=== PATIENT | female | born 1950 | race Caucasian/White ===

== ENCOUNTER 2021-07-23 12:33 | Inpatient (IN) ==
[2021-07-23] MEDS ORDERED: 0.9 % SODIUM CHLORIDE 1,000 ML IV ONE (12:41)
--- NOTE | 2021-07-23 12:59 | Emergency Department Note ---
HPI General Chief complaint: Syncope Stated complaint: cOVID, sHORTNESS OF BREATH, Time Seen by Provider: 07/23/21 12:35 Source: family Mode of arrival: ambulatory Limitations: language barrier, altered mental status and physical limitation History of Present Illness HPI Narrative: Narrative: Patient presents emergency department for evaluation of generalized weakness. She tested positive for Covid yesterday. She has 2-week history of increased generalized weakness. She was referred to the emergency department for possible monoclonal antibodies today. On arrival to the ER she was poorly responsive and back of family's vehicle. Family report that she was responsive in route to the emergency department she had mental status change on arrival. She is awake on arrival to the exam room. Related Data Home Medications Medication Instructions Recorded Confirmed multivitamin 1 tab PO QDAY 08/09/17 07/23/21 vitamin E (dl, acetate) 450 mg 1,000 unit PO QDAY 08/09/17 07/23/21 (1,000 unit) capsule aspirin 81 mg tablet,delayed 81 mg PO QDAY 10/05/20 07/23/21 release evening primrose oil 500 mg capsule 1,000 mg PO QDAY cap 10/05/20 07/23/21 magnesium 250 mg tablet 500 mg PO QDAY tab 07/19/21 07/23/21 omega 6-wpe-dlf-fish oil 900 1 cap PO BID cap 07/19/21 07/23/21 mg-1,400 mg capsule,delayed release Previous Rx's Medication Instructions Recorded fluticasone propionate 50 1 spray INTRANASAL QDAY #15.8 ml 10/04/20 mcg/actuation nasal spray,suspension syringe with needle 3 mL 25 gauge See Rx Instructions .ROUTE 01/27/21 x 1" .COMPLEX #100 ea estradiol cypionate 5 mg/mL 5 mg IM Q4W #5 ml 01/31/21 intramuscular oil clopidogrel 75 mg tablet 75 mg PO QDAY #90 tab 05/03/21 cholecalciferol (vitamin D3) 50 50 mcg PO QDAY #90 cap 05/04/21 mcg (2,000 unit) capsule mecobalamin (vitamin B12) 1,000 1,000 mcg PO QDAY #90 tab 05/04/21 mcg chewable tablet fenofibrate 54 mg tablet 54 mg PO QDAY #90 tab 07/21/21 losartan 50 mg tablet 50 mg PO QDAY #90 tab 07/21/21 Allergies Allergy/AdvReac Type Severity Reaction Status Date / Time hydromorphone [From Dilaudid] Allergy Severe Fever, Verified 07/19/21 08:11 seizure like activity Glngelu-Ntv-Ygd Reductase Allergy Severe Diarrhea, Verified 07/19/21 08:11 Inhibitor Vision changes MERT Inhibitors Allergy Unknown Diarrhea Verified 07/19/21 08:11 amlodipine Allergy Unknown Diarrhea Verified 07/19/21 08:11 Amoxicillin [From Augmentin] Allergy Unknown Diarrhea, Verified 07/19/21 08:11 severe pain clavulanic acid Allergy Unknown Diarrhea, Verified 07/19/21 08:11 [From Augmentin] severe pain red dye Allergy Unknown Hives Verified 07/19/21 08:11 simvastatin Allergy Unknown Diarrhea Verified 07/19/21 08:11 gabapentin AdvReac Severe Dizziness, Verified 07/19/21 08:11 lightheaded Nortriptyline AdvReac Severe Hair loss Verified 07/19/21 08:11 rosuvastatin AdvReac Unknown muscle Verified 07/19/21 08:11 cramps, weakness Review of Systems ROS ROS Narrative: Narrative: As above, all other system reviewed and negative. [facility] Narrative Patient History Narrative: Narrative: Reviewed Medical/Surgical/Family History All Active Problems (Updated 07/23/21 @ 15:53 by Arnaldo Ghotra MD) Pneumonia due to COVID-19 virus (Acute) Subthalamic lacunar stroke (Acute) Burn (Acute) Dizziness (Acute) Medicare annual wellness visit, initial (Acute) Insomnia (Acute) TIA (transient ischemic attack) (Acute) Choreoathetoid limb movements (Acute) NSTEMI (non-ST elevated myocardial infarction) (Acute) CAD (coronary artery disease) (Acute) Peripheral neuropathy (Chronic) Encounter for Medicare annual wellness exam (Chronic) Tobacco abuse (Chronic) Breast cyst (Chronic ~1994) Bilateral carotid bruits (Chronic) Atherosclerosis (Chronic) Allergic rhinitis (Chronic) HPV (human papilloma virus) infection (Chronic ~2004) Hyperlipidemia (Chronic ~2009) Hypertension, essential (Chronic ~1995) Anxiety (Chronic ~1985) Medical History Allergic rhinitis Anxiety (~1985) Atherosclerosis both carotid arteries Bilateral carotid bruits Breast cyst (~1994) Burn Encounter for Medicare annual wellness exam HPV (human papilloma virus) infection (~2004) Hyperlipidemia (~2009) Hypertension, essential (~1995) Medicare annual wellness visit, initial Tobacco abuse Surgical History H/O colonoscopy 06/06 Dr. Sharma H/O: hysterectomy 1985 History of cataract surgery 2014 History of surgery 2004 Cervical lesion Hx of tonsillectomy 1960 Family History Father Arthritis Bile duct cancer Mother Dementia Hypertension, essential Migraine Grandmother Seizures Paternal Social History Smoking Status: Current every day smoker Alcohol Intake Frequency: a few times a month Substance Use: does not use Exam Narrative Narrative: Narrative: Blood pressure 97/52, heart rate 81, respirations 25, satting mid 80s % on arrival to the emergency department in room air. General Limitations: language barrier, altered mental status and physical limitation Head Head: Present atraumatic and normocephalic Eye Eye: Present normal appearance, PERRL and EOMI ENT ENT: Present normal exam and normal oropharynx Neck Neck: Present normal inspection Respiratory Respiratory: Absent respiratory distress Extremities Extremities: Present normal inspection Neurological Neurological: Present alert and CN II-XII intact; Absent motor sensory deficit Psychiatric Psychiatric: Present normal affect and normal mood Skin Skin: Present warm (WNL) and dry Course Vital Signs Vital signs: Vital Signs Temperature 97.1 F 07/23/21 12:34 Pulse Rate 80 07/23/21 12:34 Respiratory Rate 21 07/23/21 12:34 Blood Pressure 97/52 07/23/21 12:34 Pulse Oximetry (%) 86 L 07/23/21 12:34 Temperature 97.1 F 07/23/21 12:34 Pulse Rate 82 07/23/21 15:41 Respiratory Rate 16 07/23/21 14:31 Blood Pressure 124/93 07/23/21 15:41 Pulse Oximetry (%) 94 07/23/21 15:41 MDM MDM Narrative Medical decision making narrative: Narrative: EKG shows sinus rhythm, no acute ischemic changes, intervals otherwise normal. Chest x-ray is consistent with Covid pneumonia. Patient is hydrated IV fluids. I spoke with the on-call hospitalist. Case reviewed in detail over the phone. Hospitalist agreed with admission. Discussed findings with patient and the family. Their questions were answered. They are agreeable with the plan. Lab Data Result diagrams: 07/23/21 12:35 07/23/21 12:35 Labs: Lab Results 07/23/21 07/23/21 07/23/21 Range/Units 12:35 12:35 12:35 WBC 4.4 L (4.5-11.0) K/mcL RBC 4.88 (3.59-5.38) M/mcL Hgb 15.1 (11.2-15.7) g/dL Hct 44.5 (34.1-44.9) % MCV 91.2 (80.0-100.0) fL MCH 30.9 (26.0-34.0) pg MCHC 33.9 (31.0-36.0) g/dL RDW 13.2 (11.5-14.5) % Plt Count 132 L (140-440) K/mcL MPV 12.8 H (7.4-10.4) fL Neut % (Auto) 75.2 (38.0-78.0) % Lymph % (Auto) 20.5 (15.5-49.0) % [place] % (Auto) 4.1 (1.0-12.0) % Eos % (Auto) 0 (0.0-7.0) % Baso % (Auto) 0.2 (0.0-2.0) % Lymph # (Auto) 0.89 L (1.50-4.80) K/mcL [place] # (Auto) 0.18 (0.10-0.90) K/mcL Eos # (Auto) 0 (0.00-0.70) K/mcL Baso # (Auto) 0.01 (0.00-0.30) K/mcL Absolute Neutrophils 3.27 (1.80-8.00) K/mcL Sodium 133 (133-145) mmol/L Potassium 3.7 (3.3-5.1) mmol/L Chloride 96 (96-108) mmol/L Carbon Dioxide 22 (22-30) mmol/L Anion Gap 15.0 (8.0-16.0) BUN 24 H (8-23) mg/dL Creatinine 1.3 H (0.6-1.1) mg/dL GFR Calculation 41 Glucose 146 H (70-105) mg/dL Calcium 10.1 (8.6-10.4) mg/dL Ferritin 960.4 H (30.0-400.0) ng/mL Total Bilirubin 0.3 (0.1-1.0) mg/dL AST 53 H (<32) U/L ALT 22 (<40) U/L Alkaline Phosphatase 47 (39-117) U/L C-Reactive Protein 14.30 H (0.03-0.80) mg/dL Total Protein 7.0 (5.9-8.4) gm/dL Albumin 3.6 (3.2-5.2) gm/dL Globulin 3.4 (2.2-3.7) gm/dL Albumin/Globulin Ratio 1.1 (1.0-2.3) Procalcitonin (<0.10) ng/mL 07/23/21 Range/Units 12:35 WBC (4.5-11.0) K/mcL RBC (3.59-5.38) M/mcL Hgb (11.2-15.7) g/dL Hct (34.1-44.9) % MCV (80.0-100.0) fL MCH (26.0-34.0) pg MCHC (31.0-36.0) g/dL RDW (11.5-14.5) % Plt Count (140-440) K/mcL MPV (7.4-10.4) fL Neut % (Auto) (38.0-78.0) % Lymph % (Auto) (15.5-49.0) % [place] % (Auto) (1.0-12.0) % Eos % (Auto) (0.0-7.0) % Baso % (Auto) (0.0-2.0) % Lymph # (Auto) (1.50-4.80) K/mcL [place] # (Auto) (0.10-0.90) K/mcL Eos # (Auto) (0.00-0.70) K/mcL Baso # (Auto) (0.00-0.30) K/mcL Absolute Neutrophils (1.80-8.00) K/mcL Sodium (133-145) mmol/L Potassium (3.3-5.1) mmol/L Chloride (96-108) mmol/L Carbon Dioxide (22-30) mmol/L Anion Gap (8.0-16.0) BUN (8-23) mg/dL Creatinine (0.6-1.1) mg/dL GFR Calculation Glucose (70-105) mg/dL Calcium (8.6-10.4) mg/dL Ferritin (30.0-400.0) ng/mL Total Bilirubin (0.1-1.0) mg/dL AST (<32) U/L ALT (<40) U/L Alkaline Phosphatase (39-117) U/L C-Reactive Protein (0.03-0.80) mg/dL Total Protein (5.9-8.4) gm/dL Albumin (3.2-5.2) gm/dL Globulin (2.2-3.7) gm/dL Albumin/Globulin Ratio (1.0-2.3) Procalcitonin 0.37 H (<0.10) ng/mL Discharge Plan Patient/Caregiver Discharge Instructions Pt seen by ADVERTISING OPERATIONS COORDINATOR/PA only: No Clinical Impression: Pneumonia due to COVID-19 virus Patient Disposition: Xfer As Inpt ([facility]) Follow up with: Armando Odonnell DO [Primary Care Provider] - Prescriptions: No Action evening primrose oil 500 mg capsule 1,000 mg PO QDAY RF: 0 aspirin 81 mg tablet,delayed release (DR/EC) 81 mg PO QDAY RF: 0 syringe with needle [BD Luer-Jose Syringe] 3 mL 25 gauge x 1" syringe See Rx Instructions .ROUTE .COMPLEX Qty: 100 RF: 0 Depo-Estradiol 5 mg/mL oil 5 mg IM Q4W Qty: 5 RF: 3 clopidogrel [Plavix] 75 mg tablet 75 mg PO QDAY Qty: 90 RF: 1 losartan 50 mg tablet 50 mg PO QDAY Qty: 90 RF: 1 fenofibrate 54 mg tablet 54 mg PO QDAY Qty: 90 RF: 1 fluticasone propionate [Flonase Allergy Relief] 50 mcg/actuation spray,suspension 1 spray INTRANASAL QDAY Qty: 15.8 RF: 0 vitamin E (dl, acetate) 1,000 unit capsule 1,000 unit PO QDAY RF: 0 multivitamin tablet 1 tab PO QDAY RF: 0 cholecalciferol (vitamin D3) 50 mcg (2,000 unit) capsule 50 mcg PO QDAY Qty: 90 RF: 3 mecobalamin (vitamin B12) 1,000 mcg tablet,chewable 1,000 mcg PO QDAY Qty: 90 RF: 3 magnesium 250 mg tablet 500 mg PO QDAY RF: 0 Fish Oil 900-1,400 mg capsule,delayed release(DR/EC) 1 cap PO BID RF: 0
--- NOTE | 2021-07-23 13:18 | XRay Report ---
INDICATION: weakness, +covid TECHNIQUE: AP portable upright chest x-ray COMPARISON: None FINDINGS: Lungs:Pulmonary parenchymal infiltrates. These are predominantly right sided. Appearance is consistent with covid pneumonia in this patient with history of positive covid test. Heart, vascular:No significant cardiomegaly. Pulmonary vascularity is normal. No pulmonary edema or pulmonary congestion Mediastinum, steffanie:No mediastinal widening. No hilar mass Pleura:No pleural fluid. No pleural-based mass or calcification Skeletal:Right convex thoracic scoliosis IMPRESSION: 1. Pulmonary parenchymal infiltrates, right greater than left 2. Findings consistent with covid pneumonia Interpreted and Authenticated by: Armando Mcintyre 07/23/21
[2021-07-23 13:34] LABS: Basophils # (Auto) 0.01 K/mcL (0.00-0.30); Basophils % (Auto) 0.2 % (0.0-2.0); Eosinophils # (Auto) 0 K/mcL (0.00-0.70); Eosinophils % (Auto) 0 % (0.0-7.0); Hematocrit 44.5 % (34.1-44.9); Hemoglobin 15.1 g/dL (11.2-15.7); Lymphocytes # (Auto) 0.89 K/mcL (1.50-4.80); Lymphocytes % (Auto) 20.5 % (15.5-49.0); Mean Cell Volume 91.2 fL (80.0-100.0); Mean Corpuscular HGB Conc 33.9 g/dL (31.0-36.0); Mean Platelet Volume 12.8 fL (7.4-10.4); Monocytes # (Auto) 0.18 K/mcL (0.10-0.90); Monocytes % (Auto) 4.1 % (1.0-12.0); Neutrophils % (Auto) 75.2 % (38.0-78.0); Platelet Count 132 K/mcL (140-440); RBC 4.88 M/mcL (3.59-5.38); Red Cell Distribution Width 13.2 % (11.5-14.5); WBC 4.4 K/mcL (4.5-11.0)
[2021-07-23] MEDS ORDERED: DEXAMETHASONE 10 MG/ML VIAL IV ONE (13:44)
[2021-07-23 14:03] LABS: ALT/SGPT 22 U/L (<40); AST/SGOT 53 U/L (<32); Albumin 3.6 gm/dL (3.2-5.2); Albumin/Globulin Ratio 1.1 (1.0-2.3); Alkaline Phosphatase 47 U/L (39-117); Bilirubin,Total 0.3 mg/dL (0.1-1.0); Blood Urea Nitrogen 24 mg/dL (8-23); Calcium 10.1 mg/dL (8.6-10.4); Carbon Dioxide 22 mmol/L (22-30); Chloride 96 mmol/L (96-108); Globulin 3.4 gm/dL (2.2-3.7); Glomerular Filtration Rate 41; Glucose 146 mg/dL (70-105)
[2021-07-23 14:20] LABS: C-Reactive Protein 14.3 mg/dL (0.03-0.80)
[2021-07-23 14:30] LABS: Ferritin 960.4 ng/mL (30.0-400.0)
--- NOTE | 2021-07-23 14:31 | Internal Med History&Physical ---
HPI History of Present Illness Patient information: Note initiated : 07/23/21 at 2:19 pm Service Date, if different from initiated Date: [] Patient: Loni Dasilva a 71 y/o F admitted on for cOVID, sHORTNESS OF BREATH,. Chief Complaint: [] History of present illness: Ms. Dasilva is a 71 year old F Who presents the ED requesting monoclonal antibodies for recent positive Covid test but found to be hypoxic. Patient states over the past 1 to 2 weeks she has had increased weakness and fatigue. She has had fevers chills and some diarrhea. She also has a cough that is occasionally productive. She does not feel short of breath although her son says she looks like she is short of breath at times. He was at her stratigrapher office this last week Dr. Villasenor and had a Covid test which they found out the other day was positive. At that time they called her PCP who recommended going to the ER and getting monoclonal antibody soon as they were able. When she arrived to the ED she almost had a syncopal episode it sounds like in the car. Her sats were in the mid 80s. Patient is accompanied by her son. She did not get the vaccine because she has had a bad response to the polio vaccine as well as the flu vaccine Review of Systems: Pertinent positives as above. Denies headache/nausea/vomiting/chest or abdominal pain/. Remaining 10 point review of system reviewed negative PFSH PFSH All Active Problems Subthalamic lacunar stroke (Acute) Burn (Acute) Dizziness (Acute) Medicare annual wellness visit, initial (Acute) Insomnia (Acute) TIA (transient ischemic attack) (Acute) Choreoathetoid limb movements (Acute) NSTEMI (non-ST elevated myocardial infarction) (Acute) CAD (coronary artery disease) (Acute) Peripheral neuropathy (Chronic) Encounter for Medicare annual wellness exam (Chronic) Tobacco abuse (Chronic) Breast cyst (Chronic ~1994) Bilateral carotid bruits (Chronic) Atherosclerosis (Chronic) Allergic rhinitis (Chronic) HPV (human papilloma virus) infection (Chronic ~2004) Hyperlipidemia (Chronic ~2009) Hypertension, essential (Chronic ~1995) Anxiety (Chronic ~1985) Medical History Allergic rhinitis Anxiety (~1985) Atherosclerosis both carotid arteries Bilateral carotid bruits Breast cyst (~1994) Burn Encounter for Medicare annual wellness exam HPV (human papilloma virus) infection (~2004) Hyperlipidemia (~2009) Hypertension, essential (~1995) Medicare annual wellness visit, initial Tobacco abuse Surgical History H/O colonoscopy 06/06 Dr. Sharma H/O: hysterectomy 1984 History of cataract surgery 2014 History of surgery 2004 Cervical lesion Hx of tonsillectomy 1960 Family History Father Arthritis Bile duct cancer Mother Dementia Hypertension, essential Migraine Grandmother Seizures Paternal Social History marital status: other: Children-2 alcohol intake frequency: a few times a month substance use type: does not use MEDS/ALLERGIES Home Medications and Allergies Home Medications Medication Instructions Recorded Confirmed Type multivitamin 1 tab PO QDAY 08/09/17 07/23/21 History vitamin E (dl, acetate) 450 mg 1,000 unit PO QDAY 08/09/17 07/23/21 History (1,000 unit) capsule fluticasone propionate 50 1 spray INTRANASAL QDAY #15.8 ml 10/04/20 07/23/21 Rx mcg/actuation nasal spray,suspension aspirin 81 mg tablet,delayed 81 mg PO QDAY 10/05/20 07/23/21 History release evening primrose oil 500 mg capsule 1,000 mg PO QDAY cap 10/05/20 07/23/21 History syringe with needle 3 mL 25 gauge See Rx Instructions .ROUTE 01/27/21 07/23/21 Rx x 1" .COMPLEX #100 ea estradiol cypionate 5 mg/mL 5 mg IM Q4W #5 ml 01/31/21 07/23/21 Rx intramuscular oil clopidogrel 75 mg tablet 75 mg PO QDAY #90 tab 05/03/21 07/23/21 Rx cholecalciferol (vitamin D3) 50 50 mcg PO QDAY #90 cap 05/04/21 07/23/21 Rx mcg (2,000 unit) capsule mecobalamin (vitamin B12) 1,000 1,000 mcg PO QDAY #90 tab 05/04/21 07/23/21 Rx mcg chewable tablet magnesium 250 mg tablet 500 mg PO QDAY tab 07/19/21 07/23/21 History omega 0-kng-rft-fish oil 900 1 cap PO BID cap 07/19/21 07/23/21 History mg-1,400 mg capsule,delayed release fenofibrate 54 mg tablet 54 mg PO QDAY #90 tab 07/21/21 07/23/21 Rx losartan 50 mg tablet 50 mg PO QDAY #90 tab 07/21/21 07/23/21 Rx Allergies Allergy/AdvReac Type Severity Reaction Status Date / Time hydromorphone [From Dilaudid] Allergy Severe Fever, Verified 07/19/21 08:11 seizure like activity Ybodmre-Ydo-Lru Reductase Allergy Severe Diarrhea, Verified 07/19/21 08:11 Inhibitor Vision changes MERT Inhibitors Allergy Unknown Diarrhea Verified 07/19/21 08:11 amlodipine Allergy Unknown Diarrhea Verified 07/19/21 08:11 Amoxicillin [From Augmentin] Allergy Unknown Diarrhea, Verified 07/19/21 08:11 severe pain clavulanic acid Allergy Unknown Diarrhea, Verified 07/19/21 08:11 [From Augmentin] severe pain red dye Allergy Unknown Hives Verified 07/19/21 08:11 simvastatin Allergy Unknown Diarrhea Verified 07/19/21 08:11 gabapentin AdvReac Severe Dizziness, Verified 07/19/21 08:11 lightheaded Nortriptyline AdvReac Severe Hair loss Verified 07/19/21 08:11 rosuvastatin AdvReac Unknown muscle Verified 07/19/21 08:11 cramps, weakness EXAM Constitutional Vitals: Temp Pulse Resp BP Pulse Ox 97.1 F 80 23 H 124/47 94 07/23/21 12:34 07/23/21 14:16 07/23/21 14:01 07/23/21 14:16 07/23/21 14:16 Exam: General: Awake, No acute Distress, peers generally weak Eyes/N/T: EOMI, PERRL, Head/Neck: neck supple, normocephalic atraumatic CV: RRR, No murmurs, normal s1/s2 Pulm: Diminished b/l, no wheezing Abd: soft, nontender, +BS x4 Ext: no clubbing/cyanosis/edema Neuro: no focal deficits, moves all extremities, CN 2-12 grossly intact, symmetrical strength b/l upper/lower, sensations intact b/l upper/lower Skin: warm/dry DATA Data Completed and Pending Labs: Labs from last 24 hours 07/23/21 07/23/21 07/23/21 12:35 12:35 12:35 WBC 4.4 L RBC 4.88 Hgb 15.1 Hct 44.5 MCV 91.2 MCH 30.9 MCHC 33.9 RDW 13.2 Plt Count 132 L MPV 12.8 H Neut % (Auto) 75.2 Lymph % (Auto) 20.5 [place] % (Auto) 4.1 Eos % (Auto) 0 Baso % (Auto) 0.2 Lymph # (Auto) 0.89 L Gray # (Auto) 0.18 Eos # (Auto) 0 Baso # (Auto) 0.01 Absolute Neutrophils 3.27 Sodium 133 Potassium 3.7 Chloride 96 Carbon Dioxide 22 Anion Gap 15.0 BUN 24 H Creatinine 1.3 H GFR Calculation 41 Glucose 146 H Calcium 10.1 Ferritin Pending Total Bilirubin 0.3 AST 53 H ALT 22 Alkaline Phosphatase 47 C-Reactive Protein Pending Total Protein 7.0 Albumin 3.6 Globulin 3.4 Albumin/Globulin Ratio 1.1 A/P Narrative A/P Narrative: A: *Covid PNA w/ : *Acute hypoxic respiratory failure: *h/o CVA's: on plavix/asa per Ho for intracerebral stenosis *h/o CAD w/stent: follows with Dr. Villasenor -on asa/plavix/fenofibrate *HTN: on ARB * P: -Rem/Dex -O2 support and wean as able -prone/mobilization/oob to chair -IS/Acapella/prn nebs -cont ARB -cont plavix -abg -pt/ot -ppx: lovenox code status: CPR ok, but no intubation Time Spent With Patient Time: Total time spent is greater than 50% in coordination of care (as documented) at patient's floor/unit and/or counseling patient:
[2021-07-23] MEDS ORDERED: REMDESIVIR 200 MG in 0.9 % SODIUM CHLORIDE 250 ML IV ONE (15:00)
[2021-07-23] MEDS ORDERED: ONDANSETRON 4 MG/2 ML VIAL IV PRN (16:30)
[2021-07-23] MEDS ORDERED: IPRATROPIUM/ALBUTEROL 3 ML AMPUL.NEB NEB PRN (16:30)
[2021-07-23] MEDS ORDERED: REMDESIVIR 100 MG in 0.9 % SODIUM CHLORIDE 250 ML IV SCH (16:30)
[2021-07-23] MEDS ORDERED: POLYETHYLENE GLYCOL 3350 17 GM PACKET PO PRN (16:30)
[2021-07-23] MEDS ORDERED: POTASSIUM CHLORIDE 40 MEQ in DEXTROSE 5% IN WATER 500 ML IV PRN (16:30)
[2021-07-23] MEDS ORDERED: 0.9 % SODIUM CHLORIDE 500 ML IV ONE (16:30)
[2021-07-23] MEDS ORDERED: MAGNESIUM SULFATE 2 GM/50 ML BAG IV PRN (16:30)
[2021-07-23] MEDS ORDERED: POTASSIUM CHLORIDE 20 MEQ TABLET PO PRN ×2 (16:30)
[2021-07-23] MEDS: 0.9 % SODIUM CHLORIDE 10 ML SYRINGE IV SCH (20:43)
[2021-07-24] MEDS: 0.9 % SODIUM CHLORIDE 10 ML SYRINGE IV SCH ×3 (05:20→21:01)
[2021-07-24 06:26] LABS: Basophils # (Auto) 0 K/mcL (0.00-0.30); Basophils % (Auto) 0 % (0.0-2.0); Eosinophils # (Auto) 0 K/mcL (0.00-0.70); Eosinophils % (Auto) 0 % (0.0-7.0); Hematocrit 40.6 % (34.1-44.9); Lymphocytes # (Auto) 0.53 K/mcL (1.50-4.80); Lymphocytes % (Auto) 27.7 % (15.5-49.0); Mean Platelet Volume 12.3 fL (7.4-10.4); Monocytes # (Auto) 0.11 K/mcL (0.10-0.90); Monocytes % (Auto) 5.8 % (1.0-12.0); Neutrophils % (Auto) 66.5 % (38.0-78.0); Platelet Count 115 K/mcL (140-440); RBC 4.32 M/mcL (3.59-5.38); Red Cell Distribution Width 13.1 % (11.5-14.5); WBC 1.9 K/mcL (4.5-11.0)
[2021-07-24 07:05] LABS: ALT/SGPT 21 U/L (<40); AST/SGOT 49 U/L (<32); Albumin/Globulin Ratio 1.1 (1.0-2.3); Alkaline Phosphatase 43 U/L (39-117); Bilirubin,Direct < 0.2 mg/dL (0-0.3); Bilirubin,Total 0.2 mg/dL (0.1-1.0); Blood Urea Nitrogen 19 mg/dL (8-23); Calcium 8.3 mg/dL (8.6-10.4); Carbon Dioxide 16 mmol/L (22-30); Chloride 102 mmol/L (96-108); Globulin 2.8 gm/dL (2.2-3.7); Glomerular Filtration Rate 91; Glucose 103 mg/dL (70-105); Lactate Dehydrogenase 393 U/L (135-225); Phosphorous 2.4 mg/dL (2.5-4.5); Triglycerides 103 mg/dL (<150)
--- NOTE | 2021-07-24 08:03 | Internal Med Progress Note ---
SUBJECTIVE Subjective Patient information: Note initiated : 07/24/21 at 7:56 am Service Date, if different from initiated Date: [] Patient: Loni Dasilva a 71 y/o F admitted on 07/23/21 for cOVID, sHORTNESS OF BREATH,. Chief Complaint: [] Interval history: History of present illness: Ms. Dasilva is a 71 year old F Who presents the ED requesting monoclonal antibodies for recent positive Covid test but found to be hypoxic. Patient states over the past 1 to 2 weeks she has had increased weakness and fatigue. She has had fevers chills and some di arrhea. She also has a cough that is occasionally productive. She does not feel short of breath although her son says she looks like she is short of breath at times. 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 Villasenor and had a Covid test which they found out the other day was positive. At that time they called her PCP who recommended going to the ER and getting monoclonal antibody soon as they were able. When she arrived to the ED she almost had a syncopal episode it sounds like in the car. Her sats were in the mid 80s. Patient is accompanied by her son. She did not get the vaccine because she has had a bad response to the polio vaccine as well as the flu vaccine 07/24 Patient doing well so far on 4 L nasal cannula. Has occasional cough. States her shortness of breath mildly improved. Review of Systems: denies headache/fever/chills/nausea/vomiting/chest or abdominal pain/diarrhea. Otherwise see above. Constitutional Vitals: Vital Signs Temp Pulse Resp BP Pulse Ox 98.9 F 80 23 H 143/57 95 07/24/21 04:00 07/24/21 05:58 07/24/21 06:04 07/24/21 06:04 07/24/21 06:04 Period Temp Pulse Resp BP Sys/Wright Pulse Ox Last 24 Hr 97.1 F-99.5 F 73-87 16-29 95-152/40-93 86-99 Intake and Output 07/23/21 07/24/21 07/24/21 21:59 05:59 13:59 Intake Total 1250 960 Output Total 650 Balance 1250 310 Weight 51.71 kg 55.61 kg Intake & Output: Intake & Output 07/23/21 07/24/21 07/24/21 21:59 05:59 13:59 Intake Total 1250 960 Output Total 650 Balance 1250 310 Weight 51.71 kg 55.61 kg Intake: IV 1250 500 Sodium Chloride 0.9% 500 ml @ 1000 500 75 mls/hr IV .[id number] ONE Rx#: [id number] Veklury 200 mg In Sodium 250 Chloride 0.9% 250 ml @ 500 mls/ hr IV ONCE ONE Rx#:[id number] Oral 460 Output: Void Amount 650 Other: Meal Nourishment/Supplement Percent of Meal Consumed 100% Feeding Ability Assist with Tray Set Up Urine Appearance Clear Urine Color Dark Yellow Stool Size Copious Smear Stool Color Brown Brown Stool Consistency Liquid Loose Watery Loose # Voids 1 # Bowel Movements 1 # of times incontinent of 1 Bowels Exam: General: Awake, No acute Distress, peers generally weak Eyes/N/T: EOMI, Head/Neck: neck supple, CV: RRR, No murmurs, Pulm: Diminished b/l with mild rhonchi, no wheezing Abd: soft, nontender, +BS x4 Ext: no clubbing/cyanosis/edema Neuro: no focal deficits, moves all extremities, Skin: warm/dry OBJ DATA Labs CBC & Chem 7: 07/24/21 05:14 07/24/21 05:14 Labs: Abnormal Lab Results 07/24/21 07/24/21 07/24/21 05:15 05:15 05:14 WBC Plt Count MPV Lymph # (Auto) Absolute Neutrophils Carbon Dioxide 16 L BUN Creatinine Glucose Calcium 8.3 L Phosphorus 2.4 L Ferritin AST 49 H Lactate Dehydrogenase 393 H C-Reactive Protein 11.70 H Total Protein 5.8 L Albumin 3.0 L Procalcitonin 0.44 H 07/24/21 07/23/21 07/23/21 05:14 12:35 12:35 WBC 1.9 L Plt Count 115 L MPV 12.3 H Lymph # (Auto) 0.53 L Absolute Neutrophils 1.27 L Carbon Dioxide BUN Creatinine Glucose Calcium Phosphorus Ferritin 960.4 H AST Lactate Dehydrogenase C-Reactive Protein 14.30 H Total Protein Albumin Procalcitonin 0.37 H 07/23/21 07/23/21 12:35 12:35 WBC 4.4 L Plt Count 132 L MPV 12.8 H Lymph # (Auto) 0.89 L Absolute Neutrophils Carbon Dioxide BUN 24 H Creatinine 1.3 H Glucose 146 H Calcium Phosphorus Ferritin AST 53 H Lactate Dehydrogenase C-Reactive Protein Total Protein Albumin Procalcitonin Meds: Medications Acetaminophen (Acetaminophen 325 Mg Tablet) 650 mg PO Q6HP PRN PRN Reason: PAIN/FEVER > 101 Albuterol/Ipratropium (Ipratropium/Albuterol 3 Ml Ampul.Neb) 3 ml NEB Q4HP PRN PRN Reason: Shortness Of Breath Aspirin (Aspirin 81 Mg Tab.Chew) 81 mg PO DAILY [facility] Clopidogrel Bisulfate (Clopidogrel 75 Mg Tablet) 75 mg PO QDAY [facility] Cyanocobalamin (Cyanocobalamin (Vitamin B-12) 500 Mcg Tablet) 1,000 mcg PO DAILY [facility] Dexamethasone (Dexamethasone 4 Mg Tablet) 6 mg PO DAILY [facility] Enoxaparin Sodium (Enoxaparin 40 Mg/0.4 Ml Syringe) 40 mg SQ DAILY [facility] Fenofibrate (Fenofibrate 43 Mg Capsule) 43 mg PO DAILY [facility] Potassium Chloride 40 meq/ (Dextrose) 520 mls @ 130 mls/hr IV UD PRN PRN Reason: Potassium < 3 Magnesium Sulfate (Magnesium Sulfate) 2 gm in 50 mls @ 50 mls/hr IV UD PRN PRN Reason: Magnesium </= 1.6 REMDESIVIR 100 mg/ Sodium (Chloride) 250 mls @ 500 mls/hr IV DAILY@1100 [facility] Stop: 07/27/21 11:29 Losartan Potassium (Losartan 50 Mg Tablet) 50 mg PO QDAY [facility] Ondansetron HCl (Ondansetron 4 Mg/2 Ml Vial) 4 mg IV Q4HP PRN PRN Reason: Nausea And Vomiting Pantoprazole Sodium (Pantoprazole 40 Mg Tablet) 40 mg PO QAMAC [facility] Polyethylene Glycol (Polyethylene Glycol 3350 17 Gm Packet) 17 gm PO DAILYP PRN PRN Reason: Constipation Potassium Chloride (Potassium Chloride 20 Meq Tablet) 40 meq PO UD PRN PRN Reason: Potssium is 3-3.5 Potassium Chloride (Potassium Chloride 20 Meq Tablet) 40 meq PO UD PRN PRN Reason: Potassium < 3 Sodium Chloride (0.9 % Sodium Chloride 10 Ml Syringe) 10 ml IV Q8 [facility] Last Admin: 07/24/21 05:20 Dose: 10 ml Documented by: A/P Narrative A/P Narrative: A: *Covid PNA w/ALI with possible bacterial coinfection: -PCT elevated, leukopenia *Acute hypoxic respiratory failure: -on 4L NC *h/o CVA's: on plavix/asa per [facility] for intracerebral stenosis *h/o CAD w/stent: follows with Dr. Villasenor -on asa/plavix/fenofibrate *EDGARDO on CKD II: improved with IVF *HTN: on ARB *Leukopenia: 2/2 viral illness P: -Rem/Dex -empiric abx -O2 support and wean as able -prone/mobilization/oob to chair -IS/Acapella/prn nebs -cont ARB -cont asa/plavix -pt/ot -ppx: lovenox code status: CPR ok, but no intubation Time Spent With Patient Time: Total time spent is greater than 50% in coordination of care (as documented) at patient's floor/unit and/or counseling patient: QUALITY VTE Deep Vein Thrombosis/Pulmonary Embolism Present on Admission: No
[2021-07-24] MEDS: cefTRIAXone 2 GM in DEXTROSE 5% IN WATER 50 ML IV SCH (08:57)
[2021-07-24] MEDS: PANTOPRAZOLE 40 MG TABLET PO SCH (08:58)
[2021-07-24] MEDS ORDERED: ENOXAPARIN 40 MG/0.4 ML SYRINGE SQ SCH (09:00)
[2021-07-24] MEDS ORDERED: DEXAMETHASONE 4 MG TABLET PO SCH (09:00)
[2021-07-24] MEDS ORDERED: CYANOCOBALAMIN (VITAMIN B-12) 500 MCG TABLET PO SCH (09:00)
[2021-07-24] MEDS ORDERED: LOSARTAN 50 MG TABLET PO SCH (09:00)
[2021-07-24] MEDS ORDERED: CLOPIDOGREL 75 MG TABLET PO SCH (09:00)
[2021-07-24] MEDS ORDERED: ASPIRIN 81 MG TAB.CHEW PO SCH (09:00)
[2021-07-24] MEDS ORDERED: FENOFIBRATE 43 MG CAPSULE PO SCH (09:00)
[2021-07-24] MEDS: AZITHROMYCIN 500 MG in DEXTROSE 5% IN WATER 250 ML IV SCH (09:14)
[2021-07-24 09:46] LABS: Band Neutrophils % 2 % (0-10); Lymphocytes % 26 % (15-49); Monocytes % (Manual) 2 % (1-12); Platelet Estimate DECREASED (Normal); RBC Morphology NORMAL (Normal); Segmented Neutrophils % 70 % (38-78)
[2021-07-24] MEDS ORDERED: CETIRIZINE 10 MG TABLET PO SCH (11:00)
[2021-07-24] MEDS: REMDESIVIR 100 MG in 0.9 % SODIUM CHLORIDE 250 ML IV SCH (11:07)
--- NOTE | 2021-07-24 13:02 | EKG ---
[facility] Test Date: 2021-07-23 Pat Name: Loni Dasilva Department: ED Room: Gender: Female Ic Designer Custom: cs : 1950 Requested By: Arnaldo Ghotra Order Number: [id number] Reading MD: Rusty Olguin Measurements Intervals [place] Rate: 81 P: 41 VA: 160 QRS: 9 QRSD: 95 T: 29 QT: 390 QTc: 453 Interpretive Statements Sinus rhythm Left atrial enlargement Electronically Signed On 07-24-2021 13:01:58 PDT by Rusty Olguin /store/[email or web address]/[id number]
[2021-07-24] MEDS: ACETAMINOPHEN 325 MG TABLET PO PRN (18:34)
[2021-07-25] MEDS ORDERED: IPRATROPIUM/ALBUTEROL 3 ML AMPUL.NEB NEB ONE (02:30)
[2021-07-25] MEDS: ACETAMINOPHEN 325 MG TABLET PO PRN ×2 (04:14→10:20)
[2021-07-25] MEDS: 0.9 % SODIUM CHLORIDE 10 ML SYRINGE IV SCH ×3 (04:15→20:35)
[2021-07-25] MEDS ORDERED: ACETAMINOPHEN 325 MG TABLET PO ONE (04:18)
--- NOTE | 2021-07-25 07:36 | Internal Med Progress Note ---
SUBJECTIVE Subjective Patient information: Note initiated : 07/25/21 at 7:35 am Service Date, if different from initiated Date: [] Patient: Loni Dasilva a 71 y/o F admitted on 07/23/21 for cOVID, sHORTNESS OF BREATH,. Chief Complaint: [] Interval history: History of present illness: Ms. Dasilva is a 71 year old F Who presents the ED requesting monoclonal antibodies for recent positive Covid test but found to be hypoxic. Patient states over the past 1 to 2 weeks she has had increased weakness and fatigue. She has had fevers chills and some di arrhea. She also has a cough that is occasionally productive. She does not feel short of breath although her son says she looks like she is short of breath at times. He was at her pharmacy consultant office this last week Dr. Villasenor and had a Covid test which they found out the other day was positive. At that time they called her PCP who recommended going to the ER and getting monoclonal antibody soon as they were able. When she arrived to the ED she almost had a syncopal episode it sounds like in the car. Her sats were in the mid 80s. Patient is accompanied by her son. She did not get the vaccine because she has had a bad response to the polio vaccine as well as the flu vaccine 07/24 Patient doing well so far on 4 L nasal cannula. Has occasional cough. States her shortness of breath mildly improved. 07/25 Patient up to 10 L oxygen mask this morning. Will place patient on heated high flow. Patient complains of cough and shortness of breath. Shortness of breath worsens when she has coughing fits. Review of Systems: denies headache/fever/chills/nausea/vomiting/chest or abdominal pain/diarrhea. Otherwise see above. Constitutional Vitals: Vital Signs Temp Pulse Resp BP Pulse Ox 99.9 F H 80 26 H 136/76 90 07/25/21 04:00 07/24/21 05:58 07/25/21 06:01 07/25/21 06:01 07/25/21 06:01 Period Temp Pulse Resp BP Sys/Wright Pulse Ox Last 24 Hr 98.2 F-99.9 F 17-28 126-162/47-83 84-96 Intake and Output 07/24/21 07/25/21 07/25/21 21:59 05:59 13:59 Intake Total 400 120 Output Total 600 525 Balance -200 -405 Weight 55.4 kg Intake & Output: Intake & Output 07/24/21 07/25/21 07/25/21 21:59 05:59 13:59 Intake Total 400 120 Output Total 600 525 Balance -200 -405 Weight 55.4 kg Intake: Oral 400 120 Output: Void Amount 600 525 Other: Urine Appearance Clear Clear Urine Color Bright Yellow Bright Yellow Urine Odor Normal Normal Exam: General: Awake, No acute Distress, peers generally weak Eyes/N/T: EOMI, Head/Neck: neck supple, CV: RRR, No murmurs, Pulm: Diminished b/l with mild rhonchi, no wheezing Abd: soft, nontender, +BS x4 Ext: no clubbing/cyanosis/edema Neuro: no focal deficits, moves all extremities, Skin: warm/dry OBJ DATA Labs CBC & Chem 7: 07/24/21 05:14 07/25/21 06:56 Labs: Abnormal Lab Results 07/24/21 07/24/21 07/24/21 05:15 05:15 05:14 WBC Plt Count MPV Lymph # (Auto) Absolute Neutrophils Platelet Estimate Carbon Dioxide 16 L BUN Creatinine Glucose Calcium 8.3 L Phosphorus 2.4 L Ferritin AST 49 H Lactate Dehydrogenase 393 H C-Reactive Protein 11.70 H Total Protein 5.8 L Albumin 3.0 L Procalcitonin 0.44 H 07/24/21 07/24/21 07/23/21 05:14 05:00 12:35 WBC 1.9 L Plt Count 115 L MPV 12.3 H Lymph # (Auto) 0.53 L Absolute Neutrophils 1.27 L Platelet Estimate Decreased A Carbon Dioxide BUN Creatinine Glucose Calcium Phosphorus Ferritin AST Lactate Dehydrogenase C-Reactive Protein Total Protein Albumin Procalcitonin 0.37 H 07/23/21 07/23/21 07/23/21 12:35 12:35 12:35 WBC 4.4 L Plt Count 132 L MPV 12.8 H Lymph # (Auto) 0.89 L Absolute Neutrophils Platelet Estimate Carbon Dioxide BUN 24 H Creatinine 1.3 H Glucose 146 H Calcium Phosphorus Ferritin 960.4 H AST 53 H Lactate Dehydrogenase C-Reactive Protein 14.30 H Total Protein Albumin Procalcitonin Meds: Medications Acetaminophen (Acetaminophen 325 Mg Tablet) 650 mg PO Q6HP PRN PRN Reason: PAIN/FEVER > 101 Last Admin: 07/25/21 04:14 Dose: 650 mg Documented by: Albuterol/Ipratropium (Ipratropium/Albuterol 3 Ml Ampul.Neb) 3 ml NEB Q4HP PRN PRN Reason: Shortness Of Breath Last Admin: 07/25/21 02:54 Dose: 3 ml Documented by: Aspirin (Aspirin 81 Mg Tab.Chew) 81 mg PO DAILY [facility] Last Admin: 07/24/21 08:58 Dose: 81 mg Documented by: Cetirizine HCl (Cetirizine 10 Mg Tablet) 10 mg PO DAILY [facility] Last Admin: 07/24/21 11:31 Dose: 10 mg Documented by: Clopidogrel Bisulfate (Clopidogrel 75 Mg Tablet) 75 mg PO QDAY [facility] Last Admin: 07/24/21 08:58 Dose: 75 mg Documented by: Cyanocobalamin (Cyanocobalamin (Vitamin B-12) 500 Mcg Tablet) 1,000 mcg PO DAILY [facility] Last Admin: 07/24/21 08:58 Dose: 1,000 mcg Documented by: Dexamethasone (Dexamethasone 4 Mg Tablet) 6 mg PO DAILY [facility] Last Admin: 07/24/21 08:58 Dose: 6 mg Documented by: Enoxaparin Sodium (Enoxaparin 40 Mg/0.4 Ml Syringe) 40 mg SQ DAILY [facility] Last Admin: 07/24/21 08:58 Dose: 40 mg Documented by: Fenofibrate (Fenofibrate 43 Mg Capsule) 43 mg PO DAILY [facility] Last Admin: 07/24/21 08:58 Dose: 43 mg Documented by: Potassium Chloride 40 meq/ (Dextrose) 520 mls @ 130 mls/hr IV UD PRN PRN Reason: Potassium < 3 Magnesium Sulfate (Magnesium Sulfate) 2 gm in 50 mls @ 50 mls/hr IV UD PRN PRN Reason: Magnesium </= 1.6 REMDESIVIR 100 mg/ Sodium (Chloride) 250 mls @ 500 mls/hr IV DAILY@1100 [facility] Stop: 07/27/21 11:29 Last Infusion: 07/24/21 11:45 Dose: Infused Documented by: Ceftriaxone Sodium 2 gm/ (Dextrose) 50 mls @ 100 mls/hr IV DAILY [facility]; Protocol Last Infusion: 07/24/21 09:30 Dose: Infused Documented by: Azithromycin 500 mg/ Dextrose 250 mls @ 250 mls/hr IV DAILY@1000 [facility]; Protocol Stop: 07/26/21 10:59 Last Infusion: 07/24/21 10:30 Dose: Infused Documented by: Losartan Potassium (Losartan 50 Mg Tablet) 50 mg PO QDAY [facility] Last Admin: 07/24/21 08:58 Dose: 50 mg Documented by: Ondansetron HCl (Ondansetron 4 Mg/2 Ml Vial) 4 mg IV Q4HP PRN PRN Reason: Nausea And Vomiting Pantoprazole Sodium (Pantoprazole 40 Mg Tablet) 40 mg PO QAMAC [facility] Last Admin: 07/24/21 08:58 Dose: 40 mg Documented by: Polyethylene Glycol (Polyethylene Glycol 3350 17 Gm Packet) 17 gm PO DAILYP PRN PRN Reason: Constipation Potassium Chloride (Potassium Chloride 20 Meq Tablet) 40 meq PO UD PRN PRN Reason: Potssium is 3-3.5 Potassium Chloride (Potassium Chloride 20 Meq Tablet) 40 meq PO UD PRN PRN Reason: Potassium < 3 Sodium Chloride (0.9 % Sodium Chloride 10 Ml Syringe) 10 ml IV Q8 [facility] Last Admin: 07/25/21 04:15 Dose: 10 ml Documented by: A/P Narrative A/P Narrative: A: *Covid PNA w/ALI with possible bacterial coinfection: -PCT elevated, leukopenia *Acute hypoxic respiratory failure: -on 10L oxymask *h/o CVA's: on plavix/asa per [facility] for intracerebral stenosis *h/o CAD w/stent: follows with Dr. Villasenor -on asa/plavix/fenofibrate *EDGARDO on CKD II: improved with IVF *HTN: on ARB *Leukopenia: 2/2 viral illness *Hypophos: P: -Rem/Dex, Actemra today -empiric abx -O2 support and wean as able -prone/mobilization/oob to chair -IS/Acapella/prn nebs -cont ARB -cont asa/plavix -pt/ot -ppx: lovenox code status: CPR ok, but no intubation Time Spent With Patient Time: Total time spent is greater than 50% in coordination of care (as documented) at patient's floor/unit and/or counseling patient: QUALITY VTE Deep Vein Thrombosis/Pulmonary Embolism Present on Admission: No
[2021-07-25] MEDS ORDERED: ONDANSETRON 4 MG/2 ML VIAL IV PRN (07:39)
[2021-07-25] MEDS ORDERED: POTASSIUM CHLORIDE 40 MEQ in DEXTROSE 5% IN WATER 500 ML IV PRN (07:39)
[2021-07-25] MEDS ORDERED: POTASSIUM CHLORIDE 20 MEQ TABLET PO PRN ×2 (07:39→07:40)
[2021-07-25] MEDS ORDERED: POLYETHYLENE GLYCOL 3350 17 GM PACKET PO PRN (07:40)
[2021-07-25] MEDS ORDERED: IPRATROPIUM/ALBUTEROL 3 ML AMPUL.NEB NEB PRN (07:41)
[2021-07-25] MEDS: PANTOPRAZOLE 40 MG TABLET PO SCH ×2 (07:44→07:45)
[2021-07-25 08:21] LABS: ALT/SGPT 26 U/L (<40); AST/SGOT 60 U/L (<32); Albumin 3.1 gm/dL (3.2-5.2); Albumin/Globulin Ratio 1.1 (1.0-2.3); Alkaline Phosphatase 44 U/L (39-117); Bilirubin,Direct < 0.2 mg/dL (0-0.3); Bilirubin,Total 0.2 mg/dL (0.1-1.0); Blood Urea Nitrogen 17 mg/dL (8-23); Calcium 8.6 mg/dL (8.6-10.4); Carbon Dioxide 22 mmol/L (22-30); Chloride 101 mmol/L (96-108); Globulin 2.7 gm/dL (2.2-3.7); Glomerular Filtration Rate 91; Glucose 98 mg/dL (70-105); Lactate Dehydrogenase 496 U/L (135-225); Phosphorous 1.4 mg/dL (2.5-4.5); Triglycerides 138 mg/dL (<150); Uric Acid 3.1 mg/dL (2.5-8.0)
[2021-07-25] MEDS ORDERED: POTASSIUM PHOSPHATE 40 MEQ in DEXTROSE 5% IN WATER 500 ML IV ONE (09:00)
[2021-07-25] MEDS: cefTRIAXone 2 GM in DEXTROSE 5% IN WATER 50 ML IV SCH (09:00)
[2021-07-25] MEDS: ENOXAPARIN 40 MG/0.4 ML SYRINGE SQ SCH (09:00)
[2021-07-25] MEDS: AZITHROMYCIN 500 MG in DEXTROSE 5% IN WATER 250 ML IV SCH (09:00)
[2021-07-25] MEDS ORDERED: TOCILIZUMAB 400 MG in 0.9 % SODIUM CHLORIDE 80 ML IV ONE (09:00)
[2021-07-25] MEDS: NEUTRA PHOS 1 PACKET PO SCH ×2 (10:20→20:48)
[2021-07-25] MEDS: guaiFENesin/CODEINE 10 ML UDC PO PRN (10:20)
[2021-07-25] MEDS: LOSARTAN 50 MG TABLET PO SCH (10:20)
[2021-07-25] MEDS: ALPRAZolam 0.25 MG TABLET PO PRN (10:20)
[2021-07-25] MEDS: REMDESIVIR 100 MG in 0.9 % SODIUM CHLORIDE 250 ML IV SCH (10:48)
[2021-07-25] MEDS: CLOPIDOGREL 75 MG TABLET PO SCH (10:52)
[2021-07-25] MEDS: CETIRIZINE 10 MG TABLET PO SCH (10:52)
[2021-07-25] MEDS: FENOFIBRATE 43 MG CAPSULE PO SCH (10:53)
[2021-07-25] MEDS: DEXAMETHASONE 4 MG TABLET PO SCH (10:53)
[2021-07-25] MEDS: BENZONATATE 100 MG CAPSULE PO PRN (10:53)
[2021-07-25] MEDS: CYANOCOBALAMIN (VITAMIN B-12) 500 MCG TABLET PO SCH (10:53)
[2021-07-25] MEDS: ASPIRIN 81 MG TAB.CHEW PO SCH (10:54)
[2021-07-25] MEDS: hydrOXYzine 25 MG TABLET PO PRN (10:54)
[2021-07-26] MEDS: 0.9 % SODIUM CHLORIDE 10 ML SYRINGE IV SCH ×3 (05:10→20:19)
[2021-07-26] MEDS: PANTOPRAZOLE 40 MG TABLET PO SCH (06:40)
--- NOTE | 2021-07-26 07:50 | Internal Med Progress Note ---
SUBJECTIVE Subjective Patient information: Note initiated : 07/26/21 at 7:48 am Service Date, if different from initiated Date: [] Patient: Loni Dasilva a 71 y/o F admitted on 07/23/21 for COVID, SHORTNESS OF BREATH. Chief Complaint: [] Interval history: History of present illness: Ms. Dasilva is a 71 year old F Who presents the ED requesting monoclonal antibodies for recent positive Covid test but found to be hypoxic. Patient states over the past 1 to 2 weeks she has had increased weakness and fatigue. She has had fevers chills and some elliot rrhea. She also has a cough that is occasionally productive. She does not feel short of breath although her son says she looks like she is short of breath at times. 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 Villasenor and had a Covid test which they found out the other day was positive. At that time they called her PCP who recommended going to the ER and getting monoclonal antibody soon as they were able. When she arrived to the ED she almost had a syncopal episode it sounds like in the car. Her sats were in the mid 80s. Patient is accompanied by her son. She did not get the vaccine because she has had a bad response to the polio vaccine as well as the flu vaccine 07/24 Patient doing well so far on 4 L nasal cannula. Has occasional cough. States her shortness of breath mildly improved. 07/25 Patient up to 10 L oxygen mask this morning. Will place patient on heated high flow. Patient complains of cough and shortness of breath. Shortness of breath worsens when she has coughing fits. 07/26 Patient on Vapotherm at 50 L/min and FiO2 of 50. Patient states she does feel little bit stronger today and feels like breathing is a little bit better. Still has productive cough. She desats pretty easily when she moves on her right side. Review of Systems: denies headache/fever/chills/nausea/vomiting/chest or abdominal pain/diarrhea. Otherwise see above. Constitutional Vitals: Vital Signs Temp Pulse Resp BP Pulse Ox 98.9 F 80 15 125/56 91 07/25/21 20:01 07/26/21 05:55 07/26/21 05:55 07/26/21 04:00 07/26/21 05:55 Period Temp Pulse Resp BP Sys/Wright Pulse Ox Last 24 Hr 98.9 F-99.9 F 80 13-33 118-146/50-79 86-95 Intake and Output 07/25/21 07/26/21 07/26/21 21:59 05:59 13:59 Intake Total 869.0909 120 Output Total 975 300 Balance -105.9091 -180 Weight 53.524 kg Intake & Output: Intake & Output 07/25/21 07/26/21 07/26/21 21:59 05:59 13:59 Intake Total 869.0909 120 Output Total 975 300 Balance -105.9091 -180 Weight 53.524 kg Intake: IV 509.0909 Potassium Phosphate 40 Meq In 509.0909 Dextrose 5% in Water 500 ml @ 127.273 mls/hr IV ONCE ONE Rx#: [id number] Oral 360 120 Output: Void Amount 975 300 Other: Meal Lunch Percent of Meal Consumed 25% Feeding Ability Independent Urine Appearance Clear Clear Urine Color Bright Yellow Dark Yellow Urine Odor Normal Normal Stool Size Large Stool Color Brown Stool Consistency Soft # Bowel Movements 1 Exam: General: Awake, No acute Distress, Eyes/N/T: EOMI, Head/Neck: neck supple, CV: RRR, No murmurs, Pulm: Diminished b/l with mild rhonchi, no wheezing Abd: soft, nontender, +BS x4 Ext: no clubbing/cyanosis/edema Neuro: no focal deficits, moves all extremities, Skin: warm/dry OBJ DATA Labs CBC & Chem 7: 07/26/21 05:59 07/25/21 06:56 Labs: Abnormal Lab Results 07/25/21 07/24/21 07/24/21 06:56 05:15 05:15 WBC Plt Count MPV Lymph # (Auto) Absolute Neutrophils Platelet Estimate Carbon Dioxide BUN Creatinine Glucose Calcium Phosphorus 1.4 L Ferritin AST 60 H Lactate Dehydrogenase 496 H C-Reactive Protein 11.70 H Total Protein 5.8 L Albumin 3.1 L Procalcitonin 0.44 H 07/24/21 07/24/21 07/24/21 05:14 05:14 05:00 WBC 1.9 L Plt Count 115 L MPV 12.3 H Lymph # (Auto) 0.53 L Absolute Neutrophils 1.27 L Platelet Estimate Decreased A Carbon Dioxide 16 L BUN Creatinine Glucose Calcium 8.3 L Phosphorus 2.4 L Ferritin AST 49 H Lactate Dehydrogenase 393 H C-Reactive Protein Total Protein 5.8 L Albumin 3.0 L Procalcitonin 07/23/21 07/23/21 07/23/21 12:35 12:35 12:35 WBC Plt Count MPV Lymph # (Auto) Absolute Neutrophils Platelet Estimate Carbon Dioxide BUN 24 H Creatinine 1.3 H Glucose 146 H Calcium Phosphorus Ferritin 960.4 H AST 53 H Lactate Dehydrogenase C-Reactive Protein 14.30 H Total Protein Albumin Procalcitonin 0.37 H 07/23/21 12:35 WBC 4.4 L Plt Count 132 L MPV 12.8 H Lymph # (Auto) 0.89 L Absolute Neutrophils Platelet Estimate Carbon Dioxide BUN Creatinine Glucose Calcium Phosphorus Ferritin AST Lactate Dehydrogenase C-Reactive Protein Total Protein Albumin Procalcitonin Meds: Medications Acetaminophen (Acetaminophen 325 Mg Tablet) 650 mg PO Q6HP PRN PRN Reason: PAIN/FEVER > 101 Last Admin: 07/25/21 10:20 Dose: 650 mg Documented by: Albuterol/Ipratropium (Ipratropium/Albuterol 3 Ml Ampul.Neb) 3 ml NEB Q4HP PRN PRN Reason: Shortness Of Breath Alprazolam (Alprazolam 0.25 Mg Tablet) 0.25 mg PO TIDP PRN PRN Reason: Anxiety Last Admin: 07/25/21 10:20 Dose: 0.25 mg Documented by: Aspirin (Aspirin 81 Mg Tab.Chew) 81 mg PO DAILY [facility] Last Admin: 07/25/21 10:54 Dose: 81 mg Documented by: Benzonatate (Benzonatate 100 Mg Capsule) 200 mg PO TIDP PRN PRN Reason: Cough Last Admin: 07/25/21 10:53 Dose: 200 mg Documented by: Cetirizine HCl (Cetirizine 10 Mg Tablet) 10 mg PO DAILY [facility] Last Admin: 07/25/21 10:52 Dose: 10 mg Documented by: Clopidogrel Bisulfate (Clopidogrel 75 Mg Tablet) 75 mg PO QDAY [facility] Last Admin: 07/25/21 10:52 Dose: 75 mg Documented by: Cyanocobalamin (Cyanocobalamin (Vitamin B-12) 500 Mcg Tablet) 1,000 mcg PO DAILY [facility] Last Admin: 07/25/21 10:53 Dose: 1,000 mcg Documented by: Dexamethasone (Dexamethasone 4 Mg Tablet) 6 mg PO DAILY [facility] Last Admin: 07/25/21 10:53 Dose: 6 mg Documented by: Enoxaparin Sodium (Enoxaparin 40 Mg/0.4 Ml Syringe) 40 mg SQ DAILY [facility] Last Admin: 07/25/21 09:00 Dose: 40 mg Documented by: Fenofibrate (Fenofibrate 43 Mg Capsule) 43 mg PO DAILY [facility] Last Admin: 07/25/21 10:53 Dose: 43 mg Documented by: Guaifenesin/Codeine Phosphate (Guaifenesin/Codeine 10 Ml Udc) 10 ml PO Q4HP PRN PRN Reason: Cough Last Admin: 07/25/21 10:20 Dose: 10 ml Documented by: Hydroxyzine HCl (Hydroxyzine 25 Mg Tablet) 50 mg PO TIDP PRN PRN Reason: Anxiety Last Admin: 07/25/21 10:54 Dose: 50 mg Documented by: Magnesium Sulfate (Magnesium Sulfate) 2 gm in 50 mls @ 50 mls/hr IV UD PRN PRN Reason: Magnesium </= 1.6 REMDESIVIR 100 mg/ Sodium (Chloride) 250 mls @ 500 mls/hr IV DAILY@1100 [facility] Stop: 07/27/21 11:29 Last Infusion: 07/25/21 11:30 Dose: Infused Documented by: Ceftriaxone Sodium 2 gm/ (Dextrose) 50 mls @ 100 mls/hr IV DAILY [facility]; Protocol Last Infusion: 07/25/21 09:30 Dose: Infused Documented by: Azithromycin 500 mg/ Dextrose 250 mls @ 250 mls/hr IV DAILY@1000 [facility]; Protocol Stop: 07/26/21 10:59 Last Infusion: 07/25/21 10:00 Dose: Infused Documented by: Potassium Chloride 40 meq/ (Dextrose) 520 mls @ 130 mls/hr IV UD PRN PRN Reason: Potassium < 3 Losartan Potassium (Losartan 50 Mg Tablet) 50 mg PO QDAY [facility] Last Admin: 07/25/21 10:20 Dose: 50 mg Documented by: Ondansetron HCl (Ondansetron 4 Mg/2 Ml Vial) 4 mg IV Q4HP PRN PRN Reason: Nausea And Vomiting Pantoprazole Sodium (Pantoprazole 40 Mg Tablet) 40 mg PO QAMAC [facility] Last Admin: 07/26/21 06:40 Dose: 40 mg Documented by: Polyethylene Glycol (Polyethylene Glycol 3350 17 Gm Packet) 17 gm PO DAILYP PRN PRN Reason: Constipation Potassium Chloride (Potassium Chloride 20 Meq Tablet) 40 meq PO UD PRN PRN Reason: Potssium is 3-3.5 Potassium Chloride (Potassium Chloride 20 Meq Tablet) 40 meq PO UD PRN PRN Reason: Potassium < 3 Sodium Chloride (0.9 % Sodium Chloride 10 Ml Syringe) 10 ml IV Q8 [facility] Last Admin: 07/26/21 05:10 Dose: 10 ml Documented by: A/P Narrative A/P Narrative: A: *Covid PNA w/ALI with possible bacterial coinfection: -PCT elevated, leukopenia *Acute hypoxic respiratory failure: -on vapotherm 50lpm & 50% *h/o CVA's: on plavix/asa per [facility] for intracerebral stenosis *h/o CAD w/stent: follows with Dr. Villasenor -on asa/plavix/fenofibrate *EDGARDO on CKD II: improved with IVF *HTN: on ARB *Leukopenia: 2/2 viral illness *Hypophos: P: -Rem/Dex, Actemra (07/25) -empiric abx, f/u PCT/CRP -O2 support and wean as able -prone/mobilization/oob to chair -IS/Acapella/prn nebs -cont ARB -cont asa/plavix -pt/ot -ppx: lovenox code status: CPR ok, but no intubation Time Spent With Patient Time: Total time spent is greater than 50% in coordination of care (as documented) at patient's floor/unit and/or counseling patient: QUALITY VTE Deep Vein Thrombosis/Pulmonary Embolism Present on Admission: No
[2021-07-26 08:36] LABS: Hematocrit 42.9 % (34.1-44.9); Hemoglobin 14.5 g/dL (11.2-15.7); Mean Cell Volume 89.9 fL (80.0-100.0); Mean Corpuscular HGB Conc 33.8 g/dL (31.0-36.0); Platelet Count 181 K/mcL (140-440); RBC 4.77 M/mcL (3.59-5.38); Red Cell Distribution Width 13.1 % (11.5-14.5); WBC 1.4 K/mcL (4.5-11.0)
[2021-07-26] MEDS: cefTRIAXone 2 GM in DEXTROSE 5% IN WATER 50 ML IV SCH (09:00)
[2021-07-26] MEDS: AZITHROMYCIN 500 MG in DEXTROSE 5% IN WATER 250 ML IV SCH (10:00)
[2021-07-26 10:16] LABS: Band Neutrophils % 6 % (0-10); Lymphocytes % 30 % (15-49); Monocytes % (Manual) 7 % (1-12); Platelet Estimate NORMAL (Normal); RBC Morphology NORMAL (Normal); Segmented Neutrophils % 57 % (38-78)
[2021-07-26] MEDS: REMDESIVIR 100 MG in 0.9 % SODIUM CHLORIDE 250 ML IV SCH (11:00)
[2021-07-26] MEDS: ENOXAPARIN 40 MG/0.4 ML SYRINGE SQ SCH (11:47)
[2021-07-26] MEDS: LOSARTAN 50 MG TABLET PO SCH (11:48)
[2021-07-26] MEDS: CYANOCOBALAMIN (VITAMIN B-12) 500 MCG TABLET PO SCH (11:48)
[2021-07-26] MEDS: ASPIRIN 81 MG TAB.CHEW PO SCH (11:48)
[2021-07-26] MEDS: BENZONATATE 100 MG CAPSULE PO PRN (11:48)
[2021-07-26] MEDS: guaiFENesin/CODEINE 10 ML UDC PO PRN (11:48)
[2021-07-26] MEDS: ACETAMINOPHEN 325 MG TABLET PO PRN (11:49)
[2021-07-26] MEDS: DEXAMETHASONE 4 MG TABLET PO SCH (11:49)
[2021-07-26] MEDS: CLOPIDOGREL 75 MG TABLET PO SCH (11:49)
[2021-07-26] MEDS: FENOFIBRATE 43 MG CAPSULE PO SCH (12:33)
[2021-07-26] MEDS: hydrOXYzine 25 MG TABLET PO PRN (12:33)
[2021-07-26 12:37] LABS: ALT/SGPT 24 U/L (<40); AST/SGOT 50 U/L (<32); Albumin/Globulin Ratio 1.1 (1.0-2.3); Alkaline Phosphatase 45 U/L (39-117); Bilirubin,Direct < 0.2 mg/dL (0-0.3); Bilirubin,Total 0.3 mg/dL (0.1-1.0); Blood Urea Nitrogen 19 mg/dL (8-23); Calcium 8.9 mg/dL (8.6-10.4); Carbon Dioxide 24 mmol/L (22-30); Chloride 103 mmol/L (96-108); Globulin 2.7 gm/dL (2.2-3.7); Glomerular Filtration Rate 97; Glucose 118 mg/dL (70-105); Lactate Dehydrogenase 502 U/L (135-225); Phosphorous 2.2 mg/dL (2.5-4.5); Triglycerides 114 mg/dL (<150); Uric Acid 2.9 mg/dL (2.5-8.0)
[2021-07-26] MEDS: ALPRAZolam 0.25 MG TABLET PO PRN (12:39)
[2021-07-26] MEDS: CETIRIZINE 10 MG TABLET PO SCH (12:39)
[2021-07-26] MEDS: PHOSPHORUS 250 MG TABLET PO SCH ×2 (14:08→20:19)
[2021-07-27] MEDS: ALPRAZolam 0.25 MG TABLET PO PRN ×2 (00:30→14:06)
[2021-07-27] MEDS: 0.9 % SODIUM CHLORIDE 10 ML SYRINGE IV SCH ×3 (05:21→20:43)
[2021-07-27 07:12] LABS: Hematocrit 42.4 % (34.1-44.9); Hemoglobin 14.1 g/dL (11.2-15.7); Mean Cell Volume 91.2 fL (80.0-100.0); Mean Corpuscular HGB Conc 33.3 g/dL (31.0-36.0); Mean Platelet Volume 11.1 fL (7.4-10.4); Platelet Count 225 K/mcL (140-440); RBC 4.65 M/mcL (3.59-5.38); Red Cell Distribution Width 13.2 % (11.5-14.5); WBC 2.3 K/mcL (4.5-11.0)
[2021-07-27] MEDS: PANTOPRAZOLE 40 MG TABLET PO SCH (07:13)
--- NOTE | 2021-07-27 07:55 | Internal Med Progress Note ---
SUBJECTIVE Subjective Patient information: Note initiated : 07/27/21 at 7:54 am Service Date, if different from initiated Date: [] Patient: Loni Dasilva a 71 y/o F admitted on 07/23/21 for COVID, SHORTNESS OF BREATH. Chief Complaint: [] Interval history: History of present illness: Ms. Dasilva is a 71 year old F Who presents the ED requesting monoclonal antibodies for recent positive Covid test but found to be hypoxic. Patient states over the past 1 to 2 weeks she has had increased weakness and fatigue. She has had fevers chills and some elliot rrhea. She also has a cough that is occasionally productive. She does not feel short of breath although her son says she looks like she is short of breath at times. 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 Villasenor and had a Covid test which they found out the other day was positive. At that time they called her PCP who recommended going to the ER and getting monoclonal antibody soon as they were able. When she arrived to the ED she almost had a syncopal episode it sounds like in the car. Her sats were in the mid 80s. Patient is accompanied by her son. She did not get the vaccine because she has had a bad response to the polio vaccine as well as the flu vaccine 07/24 Patient doing well so far on 4 L nasal cannula. Has occasional cough. States her shortness of breath mildly improved. 07/25 Patient up to 10 L oxygen mask this morning. Will place patient on heated high flow. Patient complains of cough and shortness of breath. Shortness of breath worsens when she has coughing fits. 07/26 Patient on Vapotherm at 50 L/min and FiO2 of 50. Patient states she does feel little bit stronger today and feels like breathing is a little bit better. Still has productive cough. She desats pretty easily when she moves on her right side. 07/27 Has been 45 L and 50 to 90%. She does best left lateral recumbent. Currently sitting up in chair. Patient has cough and shortness of breath similar yesterday. She says she is a little more tired today but has been up out of bed more. Review of Systems: denies headache/fever/chills/nausea/vomiting/chest or abdominal pain/diarrhea. Otherwise see above. Constitutional Vitals: Vital Signs Temp Pulse Resp BP Pulse Ox 98.1 F 80 36 H 147/65 91 07/27/21 04:48 07/26/21 05:55 07/27/21 06:01 07/27/21 06:01 07/27/21 06:01 Period Temp Pulse Resp BP Sys/Wright Pulse Ox Last 24 Hr 98.0 F-99.3 F 18-36 120-161/51-82 89-99 Intake and Output 07/26/21 07/27/21 07/27/21 21:59 05:59 13:59 Intake Total 200 120 Output Total 150 450 Balance 50 -330 Weight 54.068 kg Intake & Output: Intake & Output 07/26/21 07/27/21 07/27/21 21:59 05:59 13:59 Intake Total 200 120 Output Total 150 450 Balance 50 -330 Weight 54.068 kg Intake: Oral 200 120 Output: Void Amount 150 450 Other: Meal Dinner Percent of Meal Consumed 50% Feeding Ability Assist with Tray Set Up Urine Appearance Clear Clear Urine Color Dark Yellow Dark Yellow Urine Odor Normal Strong Exam: General: Awake, No acute Distress, Eyes/N/T: EOMI, Head/Neck: neck supple, CV: RRR, No murmurs, Pulm: Diminished b/l with minimal rhonchi, no wheezing Abd: soft, nontender, +BS x4 Ext: no clubbing/cyanosis/edema Neuro: no focal deficits, moves all extremities, Skin: warm/dry OBJ DATA Labs CBC & Chem 7: 07/27/21 05:48 07/27/21 05:48 Labs: Abnormal Lab Results 07/27/21 07/26/21 07/26/21 05:48 06:00 05:59 WBC 2.3 L MPV 11.1 H Platelet Estimate Creatinine 0.5 L Glucose 118 H Phosphorus 2.2 L Ferritin 1418.0 H AST 50 H Lactate Dehydrogenase 502 H C-Reactive Protein 6.30 H Total Protein 5.7 L Albumin 3.0 L Procalcitonin 07/26/21 07/26/21 07/25/21 05:59 05:59 06:56 WBC 1.4 L MPV 11.0 H Platelet Estimate Creatinine Glucose Phosphorus 1.4 L Ferritin AST 60 H Lactate Dehydrogenase 496 H C-Reactive Protein Total Protein 5.8 L Albumin 3.1 L Procalcitonin 0.22 H 07/24/21 05:00 WBC MPV Platelet Estimate Decreased A Creatinine Glucose Phosphorus Ferritin AST Lactate Dehydrogenase C-Reactive Protein Total Protein Albumin Procalcitonin Meds: Medications Acetaminophen (Acetaminophen 325 Mg Tablet) 650 mg PO Q6HP PRN PRN Reason: PAIN/FEVER > 101 Last Admin: 07/26/21 11:49 Dose: 650 mg Documented by: Albuterol/Ipratropium (Ipratropium/Albuterol 3 Ml Ampul.Neb) 3 ml NEB Q4HP PRN PRN Reason: Shortness Of Breath Alprazolam (Alprazolam 0.25 Mg Tablet) 0.25 mg PO TIDP PRN PRN Reason: Anxiety Last Admin: 07/27/21 00:30 Dose: 0.25 mg Documented by: Aspirin (Aspirin 81 Mg Tab.Chew) 81 mg PO DAILY [facility] Last Admin: 07/26/21 11:48 Dose: 81 mg Documented by: Benzonatate (Benzonatate 100 Mg Capsule) 200 mg PO TIDP PRN PRN Reason: Cough Last Admin: 07/26/21 11:48 Dose: 200 mg Documented by: Cetirizine HCl (Cetirizine 10 Mg Tablet) 10 mg PO DAILY [facility] Last Admin: 07/26/21 12:39 Dose: 10 mg Documented by: Clopidogrel Bisulfate (Clopidogrel 75 Mg Tablet) 75 mg PO QDAY [facility] Last Admin: 07/26/21 11:49 Dose: 75 mg Documented by: Cyanocobalamin (Cyanocobalamin (Vitamin B-12) 500 Mcg Tablet) 1,000 mcg PO DAILY [facility] Last Admin: 07/26/21 11:48 Dose: 1,000 mcg Documented by: Dexamethasone (Dexamethasone 4 Mg Tablet) 6 mg PO DAILY [facility] Last Admin: 07/26/21 11:49 Dose: 6 mg Documented by: Enoxaparin Sodium (Enoxaparin 40 Mg/0.4 Ml Syringe) 40 mg SQ DAILY [facility] Last Admin: 07/26/21 11:47 Dose: 40 mg Documented by: Fenofibrate (Fenofibrate 43 Mg Capsule) 43 mg PO DAILY [facility] Last Admin: 07/26/21 12:33 Dose: 43 mg Documented by: Guaifenesin/Codeine Phosphate (Guaifenesin/Codeine 10 Ml Udc) 10 ml PO Q4HP PRN PRN Reason: Cough Last Admin: 07/26/21 11:48 Dose: 10 ml Documented by: Hydroxyzine HCl (Hydroxyzine 25 Mg Tablet) 50 mg PO TIDP PRN PRN Reason: Anxiety Last Admin: 07/26/21 12:33 Dose: 50 mg Documented by: Magnesium Sulfate (Magnesium Sulfate) 2 gm in 50 mls @ 50 mls/hr IV UD PRN PRN Reason: Magnesium </= 1.6 REMDESIVIR 100 mg/ Sodium (Chloride) 250 mls @ 500 mls/hr IV DAILY@1100 [facility] Stop: 07/27/21 11:29 Last Infusion: 07/26/21 11:30 Dose: Infused Documented by: Ceftriaxone Sodium 2 gm/ (Dextrose) 50 mls @ 100 mls/hr IV DAILY [facility]; Protocol Last Infusion: 07/26/21 09:30 Dose: Infused Documented by: Potassium Chloride 40 meq/ (Dextrose) 520 mls @ 130 mls/hr IV UD PRN PRN Reason: Potassium < 3 Losartan Potassium (Losartan 50 Mg Tablet) 50 mg PO QDAY [facility] Last Admin: 07/26/21 11:48 Dose: 50 mg Documented by: Ondansetron HCl (Ondansetron 4 Mg/2 Ml Vial) 4 mg IV Q4HP PRN PRN Reason: Nausea And Vomiting Pantoprazole Sodium (Pantoprazole 40 Mg Tablet) 40 mg PO QAMAC [facility] Last Admin: 07/27/21 07:13 Dose: 40 mg Documented by: Polyethylene Glycol (Polyethylene Glycol 3350 17 Gm Packet) 17 gm PO DAILYP PRN PRN Reason: Constipation Potassium Chloride (Potassium Chloride 20 Meq Tablet) 40 meq PO UD PRN PRN Reason: Potssium is 3-3.5 Potassium Chloride (Potassium Chloride 20 Meq Tablet) 40 meq PO UD PRN PRN Reason: Potassium < 3 Sodium Chloride (0.9 % Sodium Chloride 10 Ml Syringe) 10 ml IV Q8 [facility] Last Admin: 07/27/21 05:21 Dose: 10 ml Documented by: A/P Narrative A/P Narrative: A: *Covid PNA w/ALI with possible bacterial coinfection: -PCT elevated and now improved, leukopenia -Inflammatory markers improving *Acute hypoxic respiratory failure: -on vapotherm 45lpm & 45-90% depending on position *h/o CVA's: on plavix/asa per [facility] for intracerebral stenosis *h/o CAD w/stent: follows with Dr. Villasenor -on asa/plavix/fenofibrate *EDGARDO on CKD II: improved with IVF *HTN: on ARB *Leukopenia: 2/2 viral illness, improving *Hypophos: P: -Rem/Dex, Actemra (07/25) -empiric abx, f/u PCT/CRP -O2 support and wean as able -prone/mobilization/oob to chair -IS/Acapella/prn nebs -cont ARB -cont asa/plavix -pt/ot -ppx: lovenox code status: CPR ok, but no intubation Time Spent With Patient Time: Total time spent is greater than 50% in coordination of care (as documented) at patient's floor/unit and/or counseling patient: QUALITY VTE Deep Vein Thrombosis/Pulmonary Embolism Present on Admission: No
[2021-07-27 08:21] LABS: ALT/SGPT 34 U/L (<40); AST/SGOT 58 U/L (<32); Albumin/Globulin Ratio 1.2 (1.0-2.3); Alkaline Phosphatase 48 U/L (39-117); Bilirubin,Direct < 0.2 mg/dL (0-0.3); Bilirubin,Total 0.3 mg/dL (0.1-1.0); Blood Urea Nitrogen 21 mg/dL (8-23); Carbon Dioxide 25 mmol/L (22-30); Chloride 104 mmol/L (96-108); Globulin 2.6 gm/dL (2.2-3.7); Glomerular Filtration Rate 104; Glucose 126 mg/dL (70-105); Lactate Dehydrogenase 494 U/L (135-225); Phosphorous 2.4 mg/dL (2.5-4.5); Triglycerides 121 mg/dL (<150)
[2021-07-27] MEDS: cefTRIAXone 2 GM in DEXTROSE 5% IN WATER 50 ML IV SCH (08:28)
[2021-07-27] MEDS: ENOXAPARIN 40 MG/0.4 ML SYRINGE SQ SCH (08:28)
[2021-07-27] MEDS: LOSARTAN 50 MG TABLET PO SCH (08:30)
[2021-07-27] MEDS: CYANOCOBALAMIN (VITAMIN B-12) 500 MCG TABLET PO SCH (08:30)
[2021-07-27] MEDS: DEXAMETHASONE 4 MG TABLET PO SCH (08:30)
[2021-07-27] MEDS: ASPIRIN 81 MG TAB.CHEW PO SCH (08:31)
[2021-07-27] MEDS: FENOFIBRATE 43 MG CAPSULE PO SCH (08:31)
[2021-07-27] MEDS: CLOPIDOGREL 75 MG TABLET PO SCH (08:31)
[2021-07-27] MEDS: CETIRIZINE 10 MG TABLET PO SCH (08:32)
[2021-07-27 10:25] LABS: Band Neutrophils % 3 % (0-10); Lymphocytes % 24 % (15-49); Monocytes % (Manual) 11 % (1-12); Platelet Estimate NORMAL (Normal); RBC Morphology NORMAL (Normal); Reactive Lymphocytes 2 % (0-2); Segmented Neutrophils % 60 % (38-78)
[2021-07-27] MEDS: REMDESIVIR 100 MG in 0.9 % SODIUM CHLORIDE 250 ML IV SCH (11:01)
[2021-07-27] MEDS: NYSTATIN 500,000 UNITS/5 ML ORAL.SUSP SSW SCH (20:26)
[2021-07-27] MEDS: ACETAMINOPHEN 325 MG TABLET PO PRN (20:26)
[2021-07-28] MEDS: 0.9 % SODIUM CHLORIDE 10 ML SYRINGE IV SCH ×2 (06:10→15:13)
[2021-07-28 07:28] LABS: Appearance,Urine TURBID (Clear); Bilirubin,Urine Negative (Negative); Color,Urine YELLOW; Culture Indicated,Urine No; Glucose,Urine (UA) Negative (Negative); Ketones,Urine Negative (Negative); Leukocyte Esterase,Urine Negative /uL (Negative); Nitrate,Urine Negative (Negative); Protein,Urine Negative (Negative); Specific Gravity,Urine 1.017 (1.000-1.035); Urine Blood Negative (Negative); Urobilinogen,Urine Negative
[2021-07-28] MEDS: cefTRIAXone 2 GM in DEXTROSE 5% IN WATER 50 ML IV SCH (08:38)
[2021-07-28] MEDS: CETIRIZINE 10 MG TABLET PO SCH (08:39)
[2021-07-28] MEDS: ASPIRIN 81 MG TAB.CHEW PO SCH (08:39)
[2021-07-28] MEDS: PANTOPRAZOLE 40 MG TABLET PO SCH (08:39)
[2021-07-28] MEDS: CYANOCOBALAMIN (VITAMIN B-12) 500 MCG TABLET PO SCH (08:39)
[2021-07-28] MEDS: LOSARTAN 50 MG TABLET PO SCH (08:39)
[2021-07-28] MEDS: NYSTATIN 500,000 UNITS/5 ML ORAL.SUSP SSW SCH ×4 (08:39→20:06)
[2021-07-28] MEDS: ENOXAPARIN 40 MG/0.4 ML SYRINGE SQ SCH (08:39)
[2021-07-28] MEDS: CLOPIDOGREL 75 MG TABLET PO SCH (08:39)
[2021-07-28] MEDS: FENOFIBRATE 43 MG CAPSULE PO SCH (08:39)
[2021-07-28] MEDS: DEXAMETHASONE 4 MG TABLET PO SCH (08:40)
[2021-07-28 09:55] LABS: ALT/SGPT 44 U/L (<40); AST/SGOT 60 U/L (<32); Albumin 3.2 gm/dL (3.2-5.2); Albumin/Globulin Ratio 1.3 (1.0-2.3); Alkaline Phosphatase 51 U/L (39-117); Bilirubin,Total 0.3 mg/dL (0.1-1.0); Blood Urea Nitrogen 24 mg/dL (8-23); Calcium 8.9 mg/dL (8.6-10.4); Carbon Dioxide 26 mmol/L (22-30); Chloride 105 mmol/L (96-108); Globulin 2.5 gm/dL (2.2-3.7); Glomerular Filtration Rate 97; Glucose 93 mg/dL (70-105)
[2021-07-28 10:02] LABS: Basophils # (Auto) 0.02 K/mcL (0.00-0.30); Basophils % (Auto) 0.4 % (0.0-2.0); Eosinophils # (Auto) 0 K/mcL (0.00-0.70); Eosinophils % (Auto) 0 % (0.0-7.0); Lymphocytes # (Auto) 1.05 K/mcL (1.50-4.80); Mean Cell Volume 93.2 fL (80.0-100.0); Mean Corpuscular HGB Conc 31.8 g/dL (31.0-36.0); Mean Platelet Volume 11.1 fL (7.4-10.4); Monocytes # (Auto) 0.45 K/mcL (0.10-0.90); Monocytes % (Auto) 9.9 % (1.0-12.0); Neutrophils % (Auto) 66.5 % (38.0-78.0); Platelet Count 264 K/mcL (140-440); RBC 4.72 M/mcL (3.59-5.38); Red Cell Distribution Width 13.2 % (11.5-14.5); WBC 4.5 K/mcL (4.5-11.0)
--- NOTE | 2021-07-28 10:36 | Internal Med Progress Note ---
SUBJECTIVE Subjective Patient information: Note initiated : 07/28/21 at 10:31 am Service Date, if different from initiated Date: [] Patient: Loni Dasilva a 71 y/o F admitted on 07/23/21 for COVID, SHORTNESS OF BREATH. Chief Complaint: [CoVID pneumonia] Interval history: History of present illness: Ms. Dasilva is a 71 year old F Who presents the ED requesting monoclonal antibodies for recent positive Covid test but found to be hypoxic. Patient states over the past 1 to 2 weeks she has had increased weakness and fatigue. She has had fevers chills and some diarrhea. She also has a cough that is occasionally productive. She does not feel short of breath although her son says she looks like she is short of breath at times. 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 Villasenor and had a Covid test which they found out the other day was positive. At that time they called her PCP who recommended going to the ER and getting monoclonal antibody soon as they were able. When she arrived to the ED she almost had a syncopal episode it sounds like in the car. Her sats were in the mid 80s. Patient is accompanied by her son. She did not get the vaccine because she has had a bad response to the polio vaccine as well as the flu vaccine 07/24 Patient doing well so far on 4 L nasal cannula. Has occasional cough. States her shortness of breath mildly improved. 07/25 Patient up to 10 L oxygen mask this morning. Will place patient on heated high flow. Patient complains of cough and shortness of breath. Shortness of breath worsens when she has coughing fits. 07/26 Patient on Vapotherm at 50 L/min and FiO2 of 50. Patient states she does feel little bit stronger today and feels like breathing is a little bit better. Still has productive cough. She desats pretty easily when she moves on her right side. 07/27 Has been 45 L and 50 to 90%. She does best left lateral recumbent. Currently sitting up in chair. Patient has cough and shortness of breath similar yesterday. She says she is a little more tired today but has been up out of bed more. 07/28: Afebrile overnight. Been on high flow oxygen therapy, 30L/min FiO2 40% at rest. c/o choking. c/o SOB. c/o cough with yellow sputum. Denies wheezing. Denies chest pain. Denies fever, chills, or sweating. Constitutional Vitals: Vital Signs Temp Pulse Resp BP Pulse Ox 36.4 C 80 20 122/96 93 07/28/21 08:06 07/28/21 10:09 07/28/21 10:09 07/28/21 08:06 07/28/21 10:09 Period Temp Pulse Resp BP Sys/Wright Pulse Ox Last 24 Hr 36.4 C-36.8 C 80-80 18-24 122-171/59-96 90-96 Intake and Output 07/27/21 07/28/21 07/28/21 21:59 05:59 13:59 Intake Total 400 180 Output Total 400 550 Balance 0 -370 Weight 53.615 kg Intake & Output: Intake & Output 07/27/21 07/28/21 07/28/21 21:59 05:59 13:59 Intake Total 400 180 Output Total 400 550 Balance 0 -370 Weight 53.615 kg Intake: Oral 400 180 Output: Void Amount 400 550 Other: Meal Dinner Percent of Meal Consumed 25% Feeding Ability Assist with Tray Set Up Urine Appearance Clear Cloudy Urine Color Dark Yellow Straw Urine Odor Normal Strong General appearance: cooperative, mild distress and no acute distress Head Head exam: Present atraumatic and normocephalic Eye Eye exam: Present EOMI and PERRL ENT ENT exam: Present mucous membranes moist, normal exam and normal external ear exam Additional comments: High flow oxygen in place Neck Neck exam: Present normal inspection; Absent lymphadenopathy, tenderness and thyromegaly Respiratory Respiratory exam: Present rhonchi; Absent accessory muscle use, respiratory distress and wheezes Cardiovascular Cardiovascular exam: Present normal rate and rhythm; Absent JVD GI/Abdominal GI/Abdominal exam: Present normal bowel sounds and soft; Absent organomegaly and tenderness Extremities Exam Extremities exam: Present full ROM, normal capillary refill and normal inspection; Absent tenderness Neurological Exam Neurological exam: Present alert, CN II-XII intact and oriented X3; Absent motor sensory deficit Psychiatric Psychiatric exam: Present normal affect and normal mood; Absent anxious and depressed Skin Skin exam: Present dry and intact OBJ DATA Labs CBC & Chem 7: 07/28/21 06:14 07/28/21 06:14 Labs: Abnormal Lab Results 07/28/21 07/28/21 07/28/21 06:14 06:14 05:31 WBC MPV 11.1 H Lymph # (Auto) 1.05 L BUN 24 H Creatinine 0.5 L Glucose Phosphorus Ferritin AST 60 H ALT 44 H Lactate Dehydrogenase C-Reactive Protein Total Protein 5.7 L Albumin Procalcitonin Urine Appearance Turbid A 07/27/21 07/27/21 07/27/21 05:48 05:48 05:48 WBC 2.3 L MPV 11.1 H Lymph # (Auto) BUN Creatinine 0.4 L Glucose 126 H Phosphorus 2.4 L Ferritin 1256.0 H AST 58 H ALT Lactate Dehydrogenase 494 H C-Reactive Protein 2.70 H Total Protein 5.6 L Albumin 3.0 L Procalcitonin Urine Appearance 07/26/21 07/26/21 07/26/21 06:00 05:59 05:59 WBC MPV Lymph # (Auto) BUN Creatinine 0.5 L Glucose 118 H Phosphorus 2.2 L Ferritin 1418.0 H AST 50 H ALT Lactate Dehydrogenase 502 H C-Reactive Protein 6.30 H Total Protein 5.7 L Albumin 3.0 L Procalcitonin 0.22 H Urine Appearance 07/26/21 05:59 WBC 1.4 L MPV 11.0 H Lymph # (Auto) BUN Creatinine Glucose Phosphorus Ferritin AST ALT Lactate Dehydrogenase C-Reactive Protein Total Protein Albumin Procalcitonin Urine Appearance Meds: Medications Acetaminophen (Acetaminophen 325 Mg Tablet) 650 mg PO Q6HP PRN PRN Reason: PAIN/FEVER > 101 Last Admin: 07/27/21 20:26 Dose: 650 mg Documented by: Albuterol/Ipratropium (Ipratropium/Albuterol 3 Ml Ampul.Neb) 3 ml NEB Q4HP PRN PRN Reason: Shortness Of Breath Alprazolam (Alprazolam 0.25 Mg Tablet) 0.25 mg PO TIDP PRN PRN Reason: Anxiety Last Admin: 07/27/21 14:06 Dose: 0.25 mg Documented by: Aspirin (Aspirin 81 Mg Tab.Chew) 81 mg PO DAILY [facility] Last Admin: 07/28/21 08:39 Dose: 81 mg Documented by: Benzonatate (Benzonatate 100 Mg Capsule) 200 mg PO TIDP PRN PRN Reason: Cough Last Admin: 07/26/21 11:48 Dose: 200 mg Documented by: Cetirizine HCl (Cetirizine 10 Mg Tablet) 10 mg PO DAILY [facility] Last Admin: 07/28/21 08:39 Dose: 10 mg Documented by: Clopidogrel Bisulfate (Clopidogrel 75 Mg Tablet) 75 mg PO QDAY [facility] Last Admin: 07/28/21 08:39 Dose: 75 mg Documented by: Cyanocobalamin (Cyanocobalamin (Vitamin B-12) 500 Mcg Tablet) 1,000 mcg PO DAILY [facility] Last Admin: 07/28/21 08:39 Dose: 1,000 mcg Documented by: Dexamethasone (Dexamethasone 4 Mg Tablet) 6 mg PO DAILY [facility] Last Admin: 07/28/21 08:40 Dose: 6 mg Documented by: Enoxaparin Sodium (Enoxaparin 40 Mg/0.4 Ml Syringe) 40 mg SQ DAILY [facility] Last Admin: 07/28/21 08:39 Dose: 40 mg Documented by: Fenofibrate (Fenofibrate 43 Mg Capsule) 43 mg PO DAILY [facility] Last Admin: 07/28/21 08:39 Dose: 43 mg Documented by: Guaifenesin/Codeine Phosphate (Guaifenesin/Codeine 10 Ml Udc) 10 ml PO Q4HP PRN PRN Reason: Cough Last Admin: 07/26/21 11:48 Dose: 10 ml Documented by: Hydroxyzine HCl (Hydroxyzine 25 Mg Tablet) 50 mg PO TIDP PRN PRN Reason: Anxiety Last Admin: 07/26/21 12:33 Dose: 50 mg Documented by: Magnesium Sulfate (Magnesium Sulfate) 2 gm in 50 mls @ 50 mls/hr IV UD PRN PRN Reason: Magnesium </= 1.6 Potassium Chloride 40 meq/ (Dextrose) 520 mls @ 130 mls/hr IV UD PRN PRN Reason: Potassium < 3 REMDESIVIR 100 mg/ Sodium (Chloride) 250 mls @ 500 mls/hr IV Q24H [facility] Stop: 08/01/21 11:29 Losartan Potassium (Losartan 50 Mg Tablet) 50 mg PO QDAY [facility] Last Admin: 07/28/21 08:39 Dose: 50 mg Documented by: Nystatin (Nystatin 500,000 Units/5 Ml Oral.Susp) 500,000 units SSW QID [facility] Stop: 08/06/21 20:59 Last Admin: 07/28/21 08:39 Dose: 500,000 units Documented by: Ondansetron HCl (Ondansetron 4 Mg/2 Ml Vial) 4 mg IV Q4HP PRN PRN Reason: Nausea And Vomiting Pantoprazole Sodium (Pantoprazole 40 Mg Tablet) 40 mg PO QAMAC [facility] Last Admin: 07/28/21 08:39 Dose: 40 mg Documented by: Polyethylene Glycol (Polyethylene Glycol 3350 17 Gm Packet) 17 gm PO DAILYP PRN PRN Reason: Constipation Potassium Chloride (Potassium Chloride 20 Meq Tablet) 40 meq PO UD PRN PRN Reason: Potssium is 3-3.5 Last Admin: 07/27/21 12:29 Dose: 40 meq Documented by: Potassium Chloride (Potassium Chloride 20 Meq Tablet) 40 meq PO UD PRN PRN Reason: Potassium < 3 Sodium Chloride (0.9 % Sodium Chloride 10 Ml Syringe) 10 ml IV Q8 [facility] Last Admin: 07/28/21 06:10 Dose: 10 ml Documented by: A/P Assessment and plan (1) Pneumonia due to COVID-19 virus: Status: Acute (2) Hyperlipidemia: Status: Chronic Qualifiers: Hyperlipidemia type: pure hypercholesterolemia Qualified Code(s): E78.00 - Pure hypercholesterolemia, unspecified; E78.00 - Pure hypercholesterolemia, unspecified; E78.00 - Pure hypercholesterolemia, unspecified; E78.0 - Pure hypercholesterolemia (3) Hypertension, essential: Status: Chronic (4) CAD (coronary artery disease): Status: Acute Qualifiers: Coronary Disease-Associated Artery/Lesion type: unspecified vessel or lesion type [place] vs. transplanted heart: [place] heart Associated angina: with unspecified angina Qualified Code(s): I25.119 - Atherosclerotic heart disease of [place] coronary artery with unspecified angina pectoris (5) Subthalamic lacunar stroke: Status: Acute (6) Dysphagia: Status: Acute Narrative A/P Narrative: Assessment and Plans: 1. CoVID pneumonia: Stay in inpatient PCU Isolations protocol: Airborne and contact Incentive spirometry Prone if tolerated Chest x-ray CBC with auto differential in the morning to trend WBC Remdesivir will extend for 10-day total course Dexamethasone Lovenox Tylenol as needed fever Oxygen therapy titrate to achieve SPO2 above or equal to 92%, currently on high flow oxygen 30 L/min FiO2 40% 2. Dysphagia: Speech therapy evaluation and treatment 3. History of essential hypertension's: Losartan Also add amlodipine for better blood pressure control 4. History of mixed dyslipidemia: Continue fenofibrate #5 history of CAD: Continue aspirin Continue Plavix Continue fenofibrate #6 history of CVA: Continue aspirin Continue Plavix Continue fenofibrate GI prophylaxis: P.o. Protonix DVT prophylaxis: Lovenox CODE STATUS: DO NOT INTUBATE Prognosis: Guarded Disposition: Inpatient PCU telemetry Time Spent With Patient Time: Total time spent is greater than 50% in coordination of care (as documented) at patient's floor/unit and/or counseling patient: Total time spent with greater than 50% in coordination of care (as documented) at patient's floor/unit and/or counseling patient:: Greater than 35 minutes QUALITY VTE Deep Vein Thrombosis/Pulmonary Embolism Present on Admission: No
--- NOTE | 2021-07-28 11:11 | XRay Report ---
INDICATION: covid TECHNIQUE: AP portable upright chest x-ray COMPARISON: Previous chest x-ray dated 07/23/2021 FINDINGS: Lungs:There are bilateral pulmonary parenchymal infiltrates. Infiltrates have increased since previous examination, especially in the left lung. This patient has a positive covid test and these findings are consistent with covid pneumonia. Heart, vascular:No significant cardiomegaly. Pulmonary vascularity is normal. No pulmonary edema or pulmonary congestion Mediastinum, steffanie:No mediastinal widening. No hilar mass Pleura:No pleural fluid. No pleural-based mass or calcification Skeletal:Severe thoracolumbar scoliosis, unchanged IMPRESSION: Increasing infiltrates consistent with covid pneumonia Interpreted and Authenticated by: Armando Mcintyre 07/28/21
[2021-07-28] MEDS: amLODIPine 10 MG TABLET PO SCH (11:52)
[2021-07-28] MEDS: REMDESIVIR 100 MG in 0.9 % SODIUM CHLORIDE 250 ML IV SCH (11:52)
[2021-07-28 12:57] LABS: Lymphocytes % (Auto) 23.2 % (15.5-49.0)
[2021-07-28] MEDS: FLUTICASONE PROPIONATE SPRAY.NAS NS SCH (14:49)
[2021-07-29] MEDS: 0.9 % SODIUM CHLORIDE 10 ML SYRINGE IV SCH ×3 (05:29→14:55)
[2021-07-29] MEDS: CYANOCOBALAMIN (VITAMIN B-12) 500 MCG TABLET PO SCH (08:13)
[2021-07-29] MEDS: DEXAMETHASONE 4 MG TABLET PO SCH (08:13)
[2021-07-29] MEDS: CLOPIDOGREL 75 MG TABLET PO SCH (08:14)
[2021-07-29] MEDS: ASPIRIN 81 MG TAB.CHEW PO SCH (08:14)
[2021-07-29] MEDS: LOSARTAN 50 MG TABLET PO SCH (08:14)
[2021-07-29] MEDS: NYSTATIN 500,000 UNITS/5 ML ORAL.SUSP SSW SCH ×4 (08:14→23:08)
[2021-07-29] MEDS: FLUTICASONE PROPIONATE SPRAY.NAS NS SCH (08:14)
[2021-07-29] MEDS: CETIRIZINE 10 MG TABLET PO SCH (08:14)
[2021-07-29] MEDS: ENOXAPARIN 40 MG/0.4 ML SYRINGE SQ SCH (08:14)
[2021-07-29] MEDS: FENOFIBRATE 43 MG CAPSULE PO SCH (08:14)
[2021-07-29] MEDS: amLODIPine 10 MG TABLET PO SCH (08:14)
[2021-07-29] MEDS: PANTOPRAZOLE 40 MG TABLET PO SCH (08:16)
[2021-07-29 08:34] LABS: Basophils # (Auto) 0.02 K/mcL (0.00-0.30); Basophils % (Auto) 0.4 % (0.0-2.0); Eosinophils # (Auto) 0.01 K/mcL (0.00-0.70); Eosinophils % (Auto) 0.2 % (0.0-7.0); Hematocrit 47.1 % (34.1-44.9); Hemoglobin 14.8 g/dL (11.2-15.7); Lymphocytes # (Auto) 1.59 K/mcL (1.50-4.80); Mean Cell Volume 94.8 fL (80.0-100.0); Mean Corpuscular HGB Conc 31.4 g/dL (31.0-36.0); Mean Platelet Volume 10.8 fL (7.4-10.4); Monocytes # (Auto) 0.42 K/mcL (0.10-0.90); Monocytes % (Auto) 7.7 % (1.0-12.0); Neutrophils % (Auto) 62.7 % (38.0-78.0); Platelet Count 309 K/mcL (140-440); RBC 4.97 M/mcL (3.59-5.38); Red Cell Distribution Width 13.3 % (11.5-14.5)
--- NOTE | 2021-07-29 08:55 | Internal Med Progress Note ---
SUBJECTIVE Subjective Patient information: Note initiated : 07/29/21 at 8:52 am Service Date, if different from initiated Date: [] Patient: Loni Dasilva a 71 y/o F admitted on 07/23/21 for COVID, SHORTNESS OF BREATH. Chief Complaint: [CoVID pneumonia] Interval history: History of present illness: Ms. Dasilva is a 71 year old F Who presents the ED requesting monoclonal antibodies for recent positive Covid test but found to be hypoxic. Patient states over the past 1 to 2 weeks she has had increased weakness and fatigue. She has had fevers chills and some diarrhea. She also has a cough that is occasionally productive. She does not feel short of breath although her son says she looks like she is short of breath at times. 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 Villasenor and had a Covid test which they found out the other day was positive. At that time they called her PCP who recommended going to the ER and getting monoclonal antibody soon as they were able. When she arrived to the ED she almost had a syncopal episode it sounds like in the car. Her sats were in the mid 80s. Patient is accompanied by her son. She did not get the vaccine because she has had a bad response to the polio vaccine as well as the flu vaccine 07/24 Patient doing well so far on 4 L nasal cannula. Has occasional cough. States her shortness of breath mildly improved. 07/25 Patient up to 10 L oxygen mask this morning. Will place patient on heated high flow. Patient complains of cough and shortness of breath. Shortness of breath worsens when she has coughing fits. 07/26 Patient on Vapotherm at 50 L/min and FiO2 of 50. Patient states she does feel little bit stronger today and feels like breathing is a little bit better. Still has productive cough. She desats pretty easily when she moves on her right side. 07/27 Has been 45 L and 50 to 90%. She does best left lateral recumbent. Currently sitting up in chair. Patient has cough and shortness of breath similar yesterday. She says she is a little more tired today but has been up out of bed more. 07/28: Afebrile overnight. Been on high flow oxygen therapy, 30L/min FiO2 40% at rest. c/o choking. c/o SOB. c/o cough with yellow sputum. Denies wheezing. Denies chest pain. Denies fever, chills, or sweating. 07/29: Afebrile overnight. Been on high flow oxygen therapy, 30L/min FiO2 40% overnight, and now currently on 7L/min oxygen. c/o SOB. c/o cough with yellow sputum. Denies wheezing. Denies chest pain. Denies fever, chills, or sweating. Constitutional Vitals: Vital Signs Temp Pulse Resp BP Pulse Ox 36.8 C 80 22 143/67 94 07/29/21 08:01 07/29/21 08:33 07/29/21 08:33 07/29/21 08:01 07/29/21 08:33 Period Temp Pulse Resp BP Sys/Wright Pulse Ox Last 24 Hr 36.6 C-36.8 C 80-80 16-37 127-168/66-119 90-98 Intake and Output 07/28/21 07/29/21 07/29/21 21:59 05:59 13:59 Intake Total 420 250 Output Total 275 375 Balance 145 -375 250 Weight 53.615 kg Intake & Output: Intake & Output 07/28/21 07/29/21 07/29/21 21:59 05:59 13:59 Intake Total 420 250 Output Total 275 375 Balance 145 -375 250 Weight 53.615 kg Intake: Nourishment/Supplement quantity 240 (ml) IV 250 Veklury 100 mg In Sodium 250 Chloride 0.9% 250 ml @ 500 mls/ hr IV Q24H [facility] Rx#:[id number] Oral 180 Output: Void Amount 275 375 Other: Meal Dinner Percent of Meal Consumed 50% Feeding Ability Independent Urine Appearance Clear Cloudy Urine Color Pale [place] Urine Odor Normal Normal General appearance: cooperative and no acute distress Head Head exam: Present atraumatic and normocephalic Eye Eye exam: Present EOMI and PERRL ENT ENT exam: Present mucous membranes moist, normal exam and normal external ear exam Additional comments: Nasal cannula in place Neck Neck exam: Present normal inspection; Absent lymphadenopathy, tenderness and thyromegaly Respiratory Respiratory exam: Absent accessory muscle use, respiratory distress and wheezes Cardiovascular Cardiovascular exam: Present normal rate and rhythm; Absent JVD GI/Abdominal GI/Abdominal exam: Present normal bowel sounds and soft; Absent organomegaly and tenderness Extremities Exam Extremities exam: Present full ROM, normal capillary refill and normal inspection; Absent tenderness Neurological Exam Neurological exam: Present alert, CN II-XII intact and oriented X3; Absent motor sensory deficit Psychiatric Psychiatric exam: Present normal affect and normal mood; Absent anxious and depressed Skin Skin exam: Present dry and intact OBJ DATA Labs CBC & Chem 7: 07/29/21 05:37 07/28/21 06:14 Labs: Abnormal Lab Results 07/29/21 07/28/21 07/28/21 05:37 06:14 06:14 WBC Hct 47.1 H MPV 10.8 H 11.1 H Lymph # (Auto) 1.05 L BUN 24 H Creatinine 0.5 L Glucose Phosphorus Ferritin AST 60 H ALT 44 H Lactate Dehydrogenase C-Reactive Protein Total Protein 5.7 L Albumin Procalcitonin Urine Appearance 07/28/21 07/27/21 07/27/21 05:31 05:48 05:48 WBC Hct MPV Lymph # (Auto) BUN Creatinine 0.4 L Glucose 126 H Phosphorus 2.4 L Ferritin 1256.0 H AST 58 H ALT Lactate Dehydrogenase 494 H C-Reactive Protein 2.70 H Total Protein 5.6 L Albumin 3.0 L Procalcitonin Urine Appearance Turbid A 07/27/21 07/26/21 07/26/21 05:48 06:00 05:59 WBC 2.3 L Hct MPV 11.1 H Lymph # (Auto) BUN Creatinine 0.5 L Glucose 118 H Phosphorus 2.2 L Ferritin 1418.0 H AST 50 H ALT Lactate Dehydrogenase 502 H C-Reactive Protein 6.30 H Total Protein 5.7 L Albumin 3.0 L Procalcitonin Urine Appearance 07/26/21 05:59 WBC Hct MPV Lymph # (Auto) BUN Creatinine Glucose Phosphorus Ferritin AST ALT Lactate Dehydrogenase C-Reactive Protein Total Protein Albumin Procalcitonin 0.22 H Urine Appearance Meds: Medications Acetaminophen (Acetaminophen 325 Mg Tablet) 650 mg PO Q6HP PRN PRN Reason: PAIN/FEVER > 101 Last Admin: 07/27/21 20:26 Dose: 650 mg Documented by: Albuterol/Ipratropium (Ipratropium/Albuterol 3 Ml Ampul.Neb) 3 ml NEB Q4HP PRN PRN Reason: Shortness Of Breath Alprazolam (Alprazolam 0.25 Mg Tablet) 0.25 mg PO TIDP PRN PRN Reason: Anxiety Last Admin: 07/27/21 14:06 Dose: 0.25 mg Documented by: Amlodipine Besylate (Amlodipine 10 Mg Tablet) 10 mg PO DAILY [facility] Last Admin: 07/29/21 08:14 Dose: 10 mg Documented by: Aspirin (Aspirin 81 Mg Tab.Chew) 81 mg PO DAILY [facility] Last Admin: 07/29/21 08:14 Dose: 81 mg Documented by: Benzonatate (Benzonatate 100 Mg Capsule) 200 mg PO TIDP PRN PRN Reason: Cough Last Admin: 07/26/21 11:48 Dose: 200 mg Documented by: Cetirizine HCl (Cetirizine 10 Mg Tablet) 10 mg PO DAILY [facility] Last Admin: 07/29/21 08:14 Dose: 10 mg Documented by: Clopidogrel Bisulfate (Clopidogrel 75 Mg Tablet) 75 mg PO QDAY [facility] Last Admin: 07/29/21 08:14 Dose: 75 mg Documented by: Cyanocobalamin (Cyanocobalamin (Vitamin B-12) 500 Mcg Tablet) 1,000 mcg PO DAILY [facility] Last Admin: 07/29/21 08:13 Dose: 1,000 mcg Documented by: Dexamethasone (Dexamethasone 4 Mg Tablet) 6 mg PO DAILY [facility] Last Admin: 07/29/21 08:13 Dose: 6 mg Documented by: Enoxaparin Sodium (Enoxaparin 40 Mg/0.4 Ml Syringe) 40 mg SQ DAILY [facility] Last Admin: 07/29/21 08:14 Dose: 40 mg Documented by: Fenofibrate (Fenofibrate 43 Mg Capsule) 43 mg PO DAILY [facility] Last Admin: 07/29/21 08:14 Dose: 43 mg Documented by: Fluticasone Propionate (Fluticasone Propionate [place]) 1 spray NS DAILY [facility] Last Admin: 07/29/21 08:14 Dose: Not Given Documented by: Guaifenesin/Codeine Phosphate (Guaifenesin/Codeine 10 Ml Udc) 10 ml PO Q4HP PRN PRN Reason: Cough Last Admin: 07/26/21 11:48 Dose: 10 ml Documented by: Hydroxyzine HCl (Hydroxyzine 25 Mg Tablet) 50 mg PO TIDP PRN PRN Reason: Anxiety Last Admin: 07/26/21 12:33 Dose: 50 mg Documented by: Magnesium Sulfate (Magnesium Sulfate) 2 gm in 50 mls @ 50 mls/hr IV UD PRN PRN Reason: Magnesium </= 1.6 Potassium Chloride 40 meq/ (Dextrose) 520 mls @ 130 mls/hr IV UD PRN PRN Reason: Potassium < 3 REMDESIVIR 100 mg/ Sodium (Chloride) 250 mls @ 500 mls/hr IV Q24H [facility] Stop: 08/01/21 11:29 Last Infusion: 07/29/21 06:41 Dose: Infused Documented by: Losartan Potassium (Losartan 50 Mg Tablet) 50 mg PO QDAY [facility] Last Admin: 07/29/21 08:14 Dose: 50 mg Documented by: Nystatin (Nystatin 500,000 Units/5 Ml Oral.Susp) 500,000 units SSW QID [facility] Stop: 08/06/21 20:59 Last Admin: 07/29/21 08:14 Dose: 500,000 units Documented by: Ondansetron HCl (Ondansetron 4 Mg/2 Ml Vial) 4 mg IV Q4HP PRN PRN Reason: Nausea And Vomiting Pantoprazole Sodium (Pantoprazole 40 Mg Tablet) 40 mg PO QAMAC [facility] Last Admin: 07/29/21 08:16 Dose: 40 mg Documented by: Polyethylene Glycol (Polyethylene Glycol 3350 17 Gm Packet) 17 gm PO DAILYP PRN PRN Reason: Constipation Potassium Chloride (Potassium Chloride 20 Meq Tablet) 40 meq PO UD PRN PRN Reason: Potssium is 3-3.5 Last Admin: 07/27/21 12:29 Dose: 40 meq Documented by: Potassium Chloride (Potassium Chloride 20 Meq Tablet) 40 meq PO UD PRN PRN Reason: Potassium < 3 Sodium Chloride (0.9 % Sodium Chloride 10 Ml Syringe) 10 ml IV Q8 [facility] Last Admin: 07/29/21 08:16 Dose: 10 ml Documented by: A/P Assessment and plan (1) Pneumonia due to COVID-19 virus: Status: Acute (2) Hyperlipidemia: Status: Chronic Qualifiers: Hyperlipidemia type: pure hypercholesterolemia Qualified Code(s): E78.00 - Pure hypercholesterolemia, unspecified; E78.00 - Pure hypercholesterolemia, unspecified; E78.00 - Pure hypercholesterolemia, unspecified; E78.0 - Pure hypercholesterolemia (3) Hypertension, essential: Status: Chronic (4) CAD (coronary artery disease): Status: Acute Qualifiers: Coronary Disease-Associated Artery/Lesion type: unspecified vessel or lesion type [place] vs. transplanted heart: [place] heart Associated angina: with unspecified angina Qualified Code(s): I25.119 - Atherosclerotic heart dis ease of [place] coronary artery with unspecified angina pectoris (5) Subthalamic lacunar stroke: Status: Acute (6) Dysphagia: Status: Acute Narrative A/P Narrative: Assessment and Plans: 1. CoVID pneumonia: Stay in inpatient PCU Isolations protocol: Airborne and contact Incentive spirometry Prone if tolerated Chest x-ray at least every few days CBC with auto differential in the morning to trend WBC Remdesivir will extend for 10-day total course Dexamethasone Lovenox Tylenol as needed fever Oxygen therapy titrate to achieve SPO2 above or equal to 92%, currently on 7L/min 2. Dysphagia: Speech therapy evaluation and treatment 3. History of essential hypertension's: Losartan Amlodipine 4. History of mixed dyslipidemia: Continue fenofibrate #5 history of CAD: Continue aspirin Continue Plavix Continue fenofibrate #6 history of CVA: Continue aspirin Continue Plavix Continue fenofibrate GI prophylaxis: P.o. Protonix DVT prophylaxis: Lovenox CODE STATUS: DO NOT INTUBATE Prognosis: Guarded Disposition: Inpatient PCU telemetry Time Spent With Patient Time: Total time spent is greater than 50% in coordination of care (as documented) at patient's floor/unit and/or counseling patient: QUALITY VTE Deep Vein Thrombosis/Pulmonary Embolism Present on Admission: No
[2021-07-29 09:01] LABS: ALT/SGPT 45 U/L (<40); AST/SGOT 52 U/L (<32); Albumin 3.1 gm/dL (3.2-5.2); Albumin/Globulin Ratio 1.2 (1.0-2.3); Alkaline Phosphatase 50 U/L (39-117); Bilirubin,Total 0.3 mg/dL (0.1-1.0); Blood Urea Nitrogen 21 mg/dL (8-23); Calcium 9.3 mg/dL (8.6-10.4); Carbon Dioxide 22 mmol/L (22-30); Chloride 103 mmol/L (96-108); Globulin 2.6 gm/dL (2.2-3.7); Glomerular Filtration Rate 97; Glucose 80 mg/dL (70-105)
[2021-07-29 09:16] LABS: WBC 5.5 K/mcL (4.5-11.0)
[2021-07-29] MEDS: REMDESIVIR 100 MG in 0.9 % SODIUM CHLORIDE 250 ML IV SCH (10:45)
[2021-07-30] MEDS: ACETAMINOPHEN 325 MG TABLET PO PRN ×2 (02:21→19:06)
[2021-07-30] MEDS: FLUTICASONE PROPIONATE SPRAY.NAS NS SCH ×2 (02:34→09:05)
[2021-07-30] MEDS: 0.9 % SODIUM CHLORIDE 10 ML SYRINGE IV SCH ×4 (02:36→21:28)
[2021-07-30 07:48] LABS: Basophils # (Auto) 0.01 K/mcL (0.00-0.30); Basophils % (Auto) 0.2 % (0.0-2.0); Eosinophils # (Auto) 0.03 K/mcL (0.00-0.70); Eosinophils % (Auto) 0.5 % (0.0-7.0); Hematocrit 47.1 % (34.1-44.9); Hemoglobin 15.8 g/dL (11.2-15.7); Lymphocytes # (Auto) 1.58 K/mcL (1.50-4.80); Lymphocytes % (Auto) 28.5 % (15.5-49.0); Mean Cell Volume 90.8 fL (80.0-100.0); Mean Corpuscular HGB Conc 33.5 g/dL (31.0-36.0); Mean Platelet Volume 10.9 fL (7.4-10.4); Monocytes # (Auto) 0.38 K/mcL (0.10-0.90); Monocytes % (Auto) 6.9 % (1.0-12.0); Neutrophils % (Auto) 63.9 % (38.0-78.0); Platelet Count 262 K/mcL (140-440); RBC 5.19 M/mcL (3.59-5.38); Red Cell Distribution Width 13.1 % (11.5-14.5); WBC 5.5 K/mcL (4.5-11.0)
[2021-07-30] MEDS: PANTOPRAZOLE 40 MG TABLET PO SCH (07:50)
[2021-07-30 07:59] LABS: ALT/SGPT 57 U/L (<40); AST/SGOT 54 U/L (<32); Albumin 3.1 gm/dL (3.2-5.2); Albumin/Globulin Ratio 1.2 (1.0-2.3); Alkaline Phosphatase 52 U/L (39-117); Bilirubin,Total 0.5 mg/dL (0.1-1.0); Blood Urea Nitrogen 24 mg/dL (8-23); Calcium 9.1 mg/dL (8.6-10.4); Carbon Dioxide 23 mmol/L (22-30); Chloride 102 mmol/L (96-108); Globulin 2.5 gm/dL (2.2-3.7); Glomerular Filtration Rate 97; Glucose 81 mg/dL (70-105)
[2021-07-30] MEDS: CYANOCOBALAMIN (VITAMIN B-12) 500 MCG TABLET PO SCH (08:24)
[2021-07-30] MEDS: NYSTATIN 500,000 UNITS/5 ML ORAL.SUSP SSW SCH ×4 (08:31→19:07)
[2021-07-30] MEDS: LOSARTAN 50 MG TABLET PO SCH (08:31)
[2021-07-30] MEDS: CLOPIDOGREL 75 MG TABLET PO SCH (08:31)
[2021-07-30] MEDS: amLODIPine 10 MG TABLET PO SCH (08:31)
[2021-07-30] MEDS: ENOXAPARIN 40 MG/0.4 ML SYRINGE SQ SCH (08:31)
[2021-07-30] MEDS: ASPIRIN 81 MG TAB.CHEW PO SCH (08:31)
[2021-07-30] MEDS: DEXAMETHASONE 4 MG TABLET PO SCH (08:31)
[2021-07-30] MEDS: CETIRIZINE 10 MG TABLET PO SCH ×2 (08:37→11:14)
[2021-07-30] MEDS: FENOFIBRATE 43 MG CAPSULE PO SCH (08:37)
--- NOTE | 2021-07-30 09:04 | Internal Med Progress Note ---
SUBJECTIVE Subjective Patient information: Note initiated : 07/30/21 at 9:01 am Service Date, if different from initiated Date: [] Patient: Loni Dasilva a 71 y/o F admitted on 07/23/21 for COVID, SHORTNESS OF BREATH. Chief Complaint: [CoVID pneumonia] Interval history: History of present illness: Ms. Dasilva is a 71 year old F Who presents the ED requesting monoclonal antibodies for recent positive Covid test but found to be hypoxic. Patient states over the past 1 to 2 weeks she has had increased weakness and fatigue. She has had fevers chills and some diarrhea. She also has a cough that is occasionally productive. She does not feel short of breath although her son says she looks like she is short of breath at times. 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 Villasenor and had a Covid test which they found out the other day was positive. At that time they called her PCP who recommended going to the ER and getting monoclonal antibody soon as they were able. When she arrived to the ED she almost had a syncopal episode it sounds like in the car. Her sats were in the mid 80s. Patient is accompanied by her son. She did not get the vaccine because she has had a bad response to the polio vaccine as well as the flu vaccine 07/24 Patient doing well so far on 4 L nasal cannula. Has occasional cough. States her shortness of breath mildly improved. 07/25 Patient up to 10 L oxygen mask this morning. Will place patient on heated high flow. Patient complains of cough and shortness of breath. Shortness of breath worsens when she has coughing fits. 07/26 Patient on Vapotherm at 50 L/min and FiO2 of 50. Patient states she does feel little bit stronger today and feels like breathing is a little bit better. Still has productive cough. She desats pretty easily when she moves on her right side. 07/27 Has been 45 L and 50 to 90%. She does best left lateral recumbent. Currently sitting up in chair. Patient has cough and shortness of breath similar yesterday. She says she is a little more tired today but has been up out of bed more. 07/28: Afebrile overnight. Been on high flow oxygen therapy, 30L/min FiO2 40% at rest. c/o choking. c/o SOB. c/o cough with yellow sputum. Denies wheezing. Denies chest pain. Denies fever, chills, or sweating. 07/29: Afebrile overnight. Been on high flow oxygen therapy, 30L/min FiO2 40% overnight, and now currently on 7L/min oxygen. c/o SOB. c/o cough with yellow sputum. Denies wheezing. Denies chest pain. Denies fever, chills, or sweating. 07/30: Afebrile overnight. Been on 2L/min oxygen therapy overnight and currently. Improving SOB. c/o cough with yellow sputum. c/o general body weakness. Denies wheezing. Denies chest pain. Denies fever, chills, or sweating. Constitutional Vitals: Vital Signs Temp Pulse Resp BP Pulse Ox 36.6 C 88 20 128/100 92 07/30/21 08:01 07/30/21 02:00 07/30/21 08:01 07/30/21 08:01 07/30/21 08:01 Period Temp Pulse Resp BP Sys/Wright Pulse Ox Last 24 Hr 36.3 C-36.8 C 88-88 14-32 121-143/58-100 91-98 Intake and Output 07/29/21 07/30/21 07/30/21 21:59 05:59 13:59 Intake Total 720 40 Output Total 100 150 Balance 620 -110 Weight 53 kg Intake & Output: Intake & Output 07/29/21 07/30/21 07/30/21 21:59 05:59 13:59 Intake Total 720 40 Output Total 100 150 Balance 620 -110 Weight 53 kg Intake: Nourishment/Supplement quantity 240 (ml) Oral 480 40 Output: Urine Catheter Amount 100 Void Amount 150 Other: Meal Dinner Percent of Meal Consumed 50% Feeding Ability Independent Urine Appearance Clear Clear Urine Color Pale Light [place] Urine Odor Normal General appearance: cooperative and no acute distress Head Head exam: Present atraumatic and normocephalic Eye Eye exam: Present EOMI and PERRL ENT ENT exam: Present mucous membranes moist, normal exam and normal external ear exam Additional comments: Nasal cannula in place Neck Neck exam: Present normal inspection; Absent lymphadenopathy, tenderness and thyromegaly Respiratory Respiratory exam: Absent accessory muscle use, respiratory distress and wheezes Cardiovascular Cardiovascular exam: Present normal rate and rhythm; Absent JVD GI/Abdominal GI/Abdominal exam: Present normal bowel sounds and soft; Absent organomegaly and tenderness Extremities Exam Extremities exam: Present full ROM, normal capillary refill and normal inspection; Absent tenderness Neurological Exam Neurological exam: Present alert, CN II-XII intact and oriented X3; Absent motor sensory deficit Psychiatric Psychiatric exam: Present normal affect and normal mood; Absent anxious and depressed Skin Skin exam: Present dry and intact OBJ DATA Labs CBC & Chem 7: 07/30/21 05:52 07/30/21 05:52 Labs: Abnormal Lab Results 07/30/21 07/30/21 07/29/21 05:52 05:52 05:37 Hgb 15.8 H Hct 47.1 H MPV 10.9 H Lymph # (Auto) BUN 24 H Creatinine 0.5 L 0.5 L AST 54 H 52 H ALT 57 H 45 H Total Protein 5.6 L 5.7 L Albumin 3.1 L 3.1 L Urine Appearance 07/29/21 07/28/21 07/28/21 05:37 06:14 06:14 Hgb Hct 47.1 H MPV 10.8 H 11.1 H Lymph # (Auto) 1.05 L BUN 24 H Creatinine 0.5 L AST 60 H ALT 44 H Total Protein 5.7 L Albumin Urine Appearance 07/28/21 05:31 Hgb Hct MPV Lymph # (Auto) BUN Creatinine AST ALT Total Protein Albumin Urine Appearance Turbid A Meds: Medications Acetaminophen (Acetaminophen 325 Mg Tablet) 650 mg PO Q6HP PRN PRN Reason: PAIN/FEVER > 101 Last Admin: 07/30/21 02:21 Dose: 650 mg Documented by: Albuterol/Ipratropium (Ipratropium/Albuterol 3 Ml Ampul.Neb) 3 ml NEB Q4HP PRN PRN Reason: Shortness Of Breath Alprazolam (Alprazolam 0.25 Mg Tablet) 0.25 mg PO TIDP PRN PRN Reason: Anxiety Last Admin: 07/27/21 14:06 Dose: 0.25 mg Documented by: Amlodipine Besylate (Amlodipine 10 Mg Tablet) 10 mg PO DAILY [facility] Last Admin: 07/30/21 08:31 Dose: 10 mg Documented by: Aspirin (Aspirin 81 Mg Tab.Chew) 81 mg PO DAILY [facility] Last Admin: 07/30/21 08:31 Dose: 81 mg Documented by: Benzonatate (Benzonatate 100 Mg Capsule) 200 mg PO TIDP PRN PRN Reason: Cough Last Admin: 07/26/21 11:48 Dose: 200 mg Documented by: Cetirizine HCl (Cetirizine 10 Mg Tablet) 10 mg PO DAILY [facility] Last Admin: 07/30/21 08:37 Dose: 10 mg Documented by: Clopidogrel Bisulfate (Clopidogrel 75 Mg Tablet) 75 mg PO QDAY [facility] Last Admin: 07/30/21 08:31 Dose: 75 mg Documented by: Cyanocobalamin (Cyanocobalamin (Vitamin B-12) 500 Mcg Tablet) 1,000 mcg PO DAILY [facility] Last Admin: 07/30/21 08:24 Dose: 1,000 mcg Documented by: Dexamethasone (Dexamethasone 4 Mg Tablet) 6 mg PO DAILY [facility] Last Admin: 07/30/21 08:31 Dose: 6 mg Documented by: Enoxaparin Sodium (Enoxaparin 40 Mg/0.4 Ml Syringe) 40 mg SQ DAILY [facility] Last Admin: 07/30/21 08:31 Dose: 40 mg Documented by: Fenofibrate (Fenofibrate 43 Mg Capsule) 43 mg PO DAILY [facility] Last Admin: 07/30/21 08:37 Dose: 43 mg Documented by: Fluticasone Propionate (Fluticasone Propionate [place]) 1 spray NS DAILY [facility] Last Admin: 07/30/21 02:34 Dose: 1 spray Documented by: Guaifenesin/Codeine Phosphate (Guaifenesin/Codeine 10 Ml Udc) 10 ml PO Q4HP PRN PRN Reason: Cough Last Admin: 07/26/21 11:48 Dose: 10 ml Documented by: Hydroxyzine HCl (Hydroxyzine 25 Mg Tablet) 50 mg PO TIDP PRN PRN Reason: Anxiety Last Admin: 07/26/21 12:33 Dose: 50 mg Documented by: Magnesium Sulfate (Magnesium Sulfate) 2 gm in 50 mls @ 50 mls/hr IV UD PRN PRN Reason: Magnesium </= 1.6 Potassium Chloride 40 meq/ (Dextrose) 520 mls @ 130 mls/hr IV UD PRN PRN Reason: Potassium < 3 REMDESIVIR 100 mg/ Sodium (Chloride) 250 mls @ 500 mls/hr IV Q24H [facility] Stop: 08/01/21 11:29 Last Infusion: 07/29/21 11:32 Dose: Infused Documented by: Losartan Potassium (Losartan 50 Mg Tablet) 50 mg PO QDAY [facility] Last Admin: 07/30/21 08:31 Dose: 50 mg Documented by: Nystatin (Nystatin 500,000 Units/5 Ml Oral.Susp) 500,000 units SSW QID [facility] Stop: 08/06/21 20:59 Last Admin: 07/30/21 08:31 Dose: 500,000 units Documented by: Ondansetron HCl (Ondansetron 4 Mg/2 Ml Vial) 4 mg IV Q4HP PRN PRN Reason: Nausea And Vomiting Pantoprazole Sodium (Pantoprazole 40 Mg Tablet) 40 mg PO QAMAC [facility] Last Admin: 07/30/21 07:50 Dose: 40 mg Documented by: Polyethylene Glycol (Polyethylene Glycol 3350 17 Gm Packet) 17 gm PO DAILYP PRN PRN Reason: Constipation Last Admin: 07/30/21 08:31 Dose: 17 gm Documented by: Potassium Chloride (Potassium Chloride 20 Meq Tablet) 40 meq PO UD PRN PRN Reason: Potssium is 3-3.5 Last Admin: 07/27/21 12:29 Dose: 40 meq Documented by: Potassium Chloride (Potassium Chloride 20 Meq Tablet) 40 meq PO UD PRN PRN Reason: Potassium < 3 Sodium Chloride (0.9 % Sodium Chloride 10 Ml Syringe) 10 ml IV Q8 [facility] Last Admin: 07/30/21 06:10 Dose: 10 ml Documented by: A/P Assessment and plan (1) Pneumonia due to COVID-19 virus: Status: Acute (2) Hyperlipidemia: Status: Chronic Qualifiers: Hyperlipidemia type: pure hypercholesterolemia Qualified Code(s): E78.00 - Pure hypercholesterolemia, unspecified; E78.00 - Pure hypercholesterolemia, unspecified; E78.00 - Pure hypercholesterolemia, unspecified; E78.0 - Pure hypercholesterolemia (3) Hypertension, essential: Status: Chronic (4) CAD (coronary artery disease): Status: Acute Qualifiers: Coronary Disease-Associated Artery/Lesion type: unspecified vessel or lesion type [place] vs. transplanted heart: [place] heart Associated angina: with unspecified angina Qualified Code(s): I25.119 - Atherosclerotic heart disease of [place] coronary artery with unspecified angina pectoris (5) Subthalamic lacunar stroke: Status: Acute (6) Dysphagia: Status: Acute Narrative A/P Narrative: Assessment and Plans: 1. CoVID pneumonia: Transfer to inpatient med surg telemetry Isolations protocol: Airborne and contact Incentive spirometry Prone if tolerated Chest x-ray at least every few days CBC with auto differential in the morning to trend WBC Remdesivir will extend for 10-day total course Dexamethasone Lovenox Tylenol as needed fever Oxygen therapy titrate to achieve SPO2 above or equal to 92%, currently on 7L/min 2. Dysphagia: Secondary to old stroke Speech therapy evaluation and treatment 3. History of essential hypertension's: Losartan Amlodipine 4. History of mixed dyslipidemia: Continue fenofibrate #5 history of CAD: Continue aspirin Continue Plavix Continue fenofibrate #6 history of CVA: Continue aspirin Continue Plavix Continue fenofibrate GI prophylaxis: P.o. Protonix DVT prophylaxis: Lovenox CODE STATUS: DO NOT INTUBATE Prognosis: Stable Disposition: Transfer to inpatient med surg telemetry Time Spent With Patient Time: Total time spent is greater than 50% in coordination of care (as documented) at patient's floor/unit and/or counseling patient: QUALITY VTE Deep Vein Thrombosis/Pulmonary Embolism Present on Admission: No
[2021-07-30] MEDS ORDERED: IPRATROPIUM/ALBUTEROL 3 ML AMPUL.NEB NEB PRN (10:09)
[2021-07-30] MEDS ORDERED: BENZONATATE 100 MG CAPSULE PO PRN (10:09)
[2021-07-30] MEDS ORDERED: hydrOXYzine 25 MG TABLET PO PRN (10:09)
[2021-07-30] MEDS ORDERED: POTASSIUM CHLORIDE 20 MEQ TABLET PO PRN ×2 (10:09)
[2021-07-30] MEDS ORDERED: POLYETHYLENE GLYCOL 3350 17 GM PACKET PO PRN (10:09)
[2021-07-30] MEDS ORDERED: MAGNESIUM SULFATE 2 GM/50 ML BAG IV PRN (10:09)
[2021-07-30] MEDS ORDERED: guaiFENesin/CODEINE 10 ML UDC PO PRN (10:09)
[2021-07-30] MEDS ORDERED: ALPRAZolam 0.25 MG TABLET PO PRN (10:09)
[2021-07-30] MEDS ORDERED: ONDANSETRON 4 MG/2 ML VIAL IV PRN (10:09)
[2021-07-30] MEDS ORDERED: POTASSIUM CHLORIDE 40 MEQ in DEXTROSE 5% IN WATER 500 ML IV PRN (10:09)
[2021-07-30] MEDS: REMDESIVIR 100 MG in 0.9 % SODIUM CHLORIDE 250 ML IV SCH (11:14)
[2021-07-31] MEDS: ACETAMINOPHEN 325 MG TABLET PO PRN ×2 (01:16→16:47)
[2021-07-31] MEDS: 0.9 % SODIUM CHLORIDE 10 ML SYRINGE IV SCH ×3 (04:04→20:49)
[2021-07-31 07:18] LABS: Basophils # (Auto) 0.01 K/mcL (0.00-0.30); Basophils % (Auto) 0.1 % (0.0-2.0); Eosinophils # (Auto) 0.06 K/mcL (0.00-0.70); Eosinophils % (Auto) 0.9 % (0.0-7.0); Hematocrit 44.6 % (34.1-44.9); Hemoglobin 14.6 g/dL (11.2-15.7); Lymphocytes # (Auto) 1.65 K/mcL (1.50-4.80); Lymphocytes % (Auto) 23.9 % (15.5-49.0); Mean Cell Volume 89.4 fL (80.0-100.0); Mean Corpuscular HGB Conc 32.7 g/dL (31.0-36.0); Mean Platelet Volume 10.7 fL (7.4-10.4); Monocytes % (Auto) 5.8 % (1.0-12.0); Neutrophils % (Auto) 69.3 % (38.0-78.0); Platelet Count 411 K/mcL (140-440); RBC 4.99 M/mcL (3.59-5.38); Red Cell Distribution Width 12.9 % (11.5-14.5); WBC 6.9 K/mcL (4.5-11.0)
[2021-07-31 07:37] LABS: ALT/SGPT 62 U/L (<40); AST/SGOT 48 U/L (<32); Albumin 3.1 gm/dL (3.2-5.2); Albumin/Globulin Ratio 1.3 (1.0-2.3); Alkaline Phosphatase 48 U/L (39-117); Bilirubin,Total 0.5 mg/dL (0.1-1.0); Blood Urea Nitrogen 31 mg/dL (8-23); Calcium 9.3 mg/dL (8.6-10.4); Carbon Dioxide 24 mmol/L (22-30); Chloride 104 mmol/L (96-108); Globulin 2.4 gm/dL (2.2-3.7); Glomerular Filtration Rate 91; Glucose 85 mg/dL (70-105)
[2021-07-31] MEDS: CLOPIDOGREL 75 MG TABLET PO SCH (08:16)
[2021-07-31] MEDS: ENOXAPARIN 40 MG/0.4 ML SYRINGE SQ SCH (08:16)
[2021-07-31] MEDS: DEXAMETHASONE 4 MG TABLET PO SCH (08:17)
[2021-07-31] MEDS: ASPIRIN 81 MG TAB.CHEW PO SCH (08:17)
[2021-07-31] MEDS: CYANOCOBALAMIN (VITAMIN B-12) 500 MCG TABLET PO SCH (08:17)
[2021-07-31] MEDS: amLODIPine 10 MG TABLET PO SCH (08:17)
[2021-07-31] MEDS: LOSARTAN 50 MG TABLET PO SCH (08:18)
[2021-07-31] MEDS: FENOFIBRATE 43 MG CAPSULE PO SCH (08:18)
[2021-07-31] MEDS: PANTOPRAZOLE 40 MG TABLET PO SCH (08:18)
[2021-07-31] MEDS: NYSTATIN 500,000 UNITS/5 ML ORAL.SUSP SSW SCH ×4 (08:19→20:48)
[2021-07-31] MEDS: CETIRIZINE 10 MG TABLET PO SCH ×2 (08:19→11:39)
--- NOTE | 2021-07-31 11:01 | Internal Med Progress Note ---
SUBJECTIVE Subjective Patient information: Note initiated : 07/31/21 at 10:57 am Service Date, if different from initiated Date: [] Patient: Loni Dasilva a 71 y/o F admitted on 07/23/21 for COVID, SHORTNESS OF BREATH. Chief Complaint: [CoVID pneumonia] Interval history: History of present illness: Ms. Dasilva is a 71 year old F Who presents the ED requesting monoclonal antibodies for recent positive Covid test but found to be hypoxic. Patient states over the past 1 to 2 weeks she has had increased weakness and fatigue. She has had fevers chills and some diarrhea. She also has a cough that is occasionally productive. She does not feel short of breath although her son says she looks like she is short of breath at times. He was at her hims manager office this last week Dr. Villasenor and had a Covid test which they found out the other day was positive. At that time they called her PCP who recommended going to the ER and getting monoclonal antibody soon as they were able. When she arrived to the ED she almost had a syncopal episode it sounds like in the car. Her sats were in the mid 80s. Patient is accompanied by her son. She did not get the vaccine because she has had a bad response to the polio vaccine as well as the flu vaccine 07/24 Patient doing well so far on 4 L nasal cannula. Has occasional cough. States her shortness of breath mildly improved. 07/25 Patient up to 10 L oxygen mask this morning. Will place patient on heated high flow. Patient complains of cough and shortness of breath. Shortness of breath worsens when she has coughing fits. 07/26 Patient on Vapotherm at 50 L/min and FiO2 of 50. Patient states she does feel little bit stronger today and feels like breathing is a little bit better. Still has productive cough. She desats pretty easily when she moves on her right side. 07/27 Has been 45 L and 50 to 90%. She does best left lateral recumbent. Currently sitting up in chair. Patient has cough and shortness of breath similar yesterday. She says she is a little more tired today but has been up out of bed more. 07/28: Afebrile overnight. Been on high flow oxygen therapy, 30L/min FiO2 40% at rest. c/o choking. c/o SOB. c/o cough with yellow sputum. Denies wheezing. Denies chest pain. Denies fever, chills, or sweating. 07/29: Afebrile overnight. Been on high flow oxygen therapy, 30L/min FiO2 40% overnight, and now currently on 7L/min oxygen. c/o SOB. c/o cough with yellow sputum. Denies wheezing. Denies chest pain. Denies fever, chills, or sweating. 07/30: Afebrile overnight. Been on 2L/min oxygen therapy overnight and currently. Improving SOB. c/o cough with yellow sputum. c/o general body weakness. Denies wheezing. Denies chest pain. Denies fever, chills, or sweating. 07/31: Afebrile overnight. Been on 2L/min oxygen therapy overnight and currently. Improving SOB. c/o cough with yellow sputum. c/o general body weakness. Denies wheezing. Denies chest pain. Denies fever, chills, or sweating. Constipation no bowel movement since 07/25. Constitutional Vitals: Vital Signs Temp Pulse Resp BP Pulse Ox 36.2 C 100 H 16 110/67 94 07/31/21 04:00 07/31/21 08:00 07/31/21 08:00 07/31/21 08:00 07/31/21 08:00 Period Temp Pulse Resp BP Sys/Wright Pulse Ox Last 24 Hr 36.2 C-36.5 C 78-105 16-18 100-128/55-74 91-97 Intake and Output 07/30/21 07/31/21 07/31/21 21:59 05:59 13:59 Intake Total 300 Output Total 1 Balance -1 300 Weight 48.217 kg Intake & Output: Intake & Output 07/30/21 07/31/21 07/31/21 21:59 05:59 13:59 Intake Total 300 Output Total 1 Balance -1 300 Weight 48.217 kg Intake: Oral 300 Output: Void Amount 1 Other: Urine Appearance Clear Urine Color Bright Yellow Stool Size Moderate Stool Color Brown Stool Consistency Soft # Voids 1 1 # Bowel Movements 1 General appearance: cooperative and no acute distress Head Head exam: Present atraumatic and normocephalic Eye Eye exam: Present EOMI and PERRL ENT ENT exam: Present mucous membranes moist, normal exam and normal external ear exam Additional comments: Nasal cannula in place Neck Neck exam: Present normal inspection; Absent lymphadenopathy, tenderness and thyromegaly Respiratory Respiratory exam: Absent accessory muscle use, respiratory distress and wheezes Cardiovascular Cardiovascular exam: Present irregular rhythm; Absent JVD GI/Abdominal GI/Abdominal exam: Present normal bowel sounds and soft; Absent organomegaly and tenderness Extremities Exam Extremities exam: Present full ROM, normal capillary refill and normal inspection; Absent tenderness Neurological Exam Neurological exam: Present alert, CN II-XII intact and oriented X3; Absent motor sensory deficit Psychiatric Psychiatric exam: Present normal affect and normal mood; Absent anxious and depressed Skin Skin exam: Present dry and intact OBJ DATA Labs CBC & Chem 7: 07/31/21 05:19 07/31/21 05:19 Labs: Abnormal Lab Results 07/31/21 07/31/21 07/30/21 05:19 05:19 05:52 Hgb Hct MPV 10.7 H BUN 31 H 24 H Creatinine 0.5 L AST 48 H 54 H ALT 62 H 57 H Total Protein 5.5 L 5.6 L Albumin 3.1 L 3.1 L 07/30/21 07/29/21 07/29/21 05:52 05:37 05:37 Hgb 15.8 H Hct 47.1 H 47.1 H MPV 10.9 H 10.8 H BUN Creatinine 0.5 L AST 52 H ALT 45 H Total Protein 5.7 L Albumin 3.1 L Meds: Medications Acetaminophen (Acetaminophen 325 Mg Tablet) 650 mg PO Q6HP PRN PRN Reason: PAIN/FEVER > 101 Last Admin: 07/31/21 01:16 Dose: 650 mg Documented by: Albuterol/Ipratropium (Ipratropium/Albuterol 3 Ml Ampul.Neb) 3 ml NEB Q4HP PRN PRN Reason: Shortness Of Breath Alprazolam (Alprazolam 0.25 Mg Tablet) 0.25 mg PO TIDP PRN PRN Reason: Anxiety Amlodipine Besylate (Amlodipine 10 Mg Tablet) 10 mg PO DAILY [facility] Last Admin: 07/31/21 08:17 Dose: 10 mg Documented by: Aspirin (Aspirin 81 Mg Tab.Chew) 81 mg PO DAILY [facility] Last Admin: 07/31/21 08:17 Dose: 81 mg Documented by: Benzonatate (Benzonatate 100 Mg Capsule) 200 mg PO TIDP PRN PRN Reason: Cough Cetirizine HCl (Cetirizine 10 Mg Tablet) 10 mg PO DAILY [facility] Last Admin: 07/31/21 08:19 Dose: 10 mg Documented by: Clopidogrel Bisulfate (Clopidogrel 75 Mg Tablet) 75 mg PO QDAY [facility] Last Admin: 07/31/21 08:16 Dose: 75 mg Documented by: Cyanocobalamin (Cyanocobalamin (Vitamin B-12) 500 Mcg Tablet) 1,000 mcg PO DAILY [facility] Last Admin: 07/31/21 08:17 Dose: 1,000 mcg Documented by: Dexamethasone (Dexamethasone 4 Mg Tablet) 6 mg PO DAILY [facility] Last Admin: 07/31/21 08:17 Dose: 6 mg Documented by: Enoxaparin Sodium (Enoxaparin 40 Mg/0.4 Ml Syringe) 40 mg SQ DAILY [facility] Last Admin: 07/31/21 08:16 Dose: 40 mg Documented by: Fenofibrate (Fenofibrate 43 Mg Capsule) 43 mg PO DAILY [facility] Last Admin: 07/31/21 08:18 Dose: 43 mg Documented by: Fluticasone Propionate (Fluticasone Propionate [place]) 1 spray NS DAILY [facility] Guaifenesin/Codeine Phosphate (Guaifenesin/Codeine 10 Ml Udc) 10 ml PO Q4HP PRN PRN Reason: Cough Hydroxyzine HCl (Hydroxyzine 25 Mg Tablet) 50 mg PO TIDP PRN PRN Reason: Anxiety Magnesium Sulfate (Magnesium Sulfate) 2 gm in 50 mls @ 50 mls/hr IV UD PRN PRN Reason: Magnesium </= 1.6 REMDESIVIR 100 mg/ Sodium (Chloride) 250 mls @ 500 mls/hr IV Q24H [facility] Stop: 08/01/21 11:29 Last Infusion: 07/30/21 11:44 Dose: Infused Documented by: Potassium Chloride 40 meq/ (Dextrose) 520 mls @ 130 mls/hr IV UD PRN PRN Reason: Potassium < 3 Losartan Potassium (Losartan 50 Mg Tablet) 50 mg PO QDAY [facility] Last Admin: 07/31/21 08:18 Dose: 50 mg Documented by: Nystatin (Nystatin 500,000 Units/5 Ml Oral.Susp) 500,000 units SSW QID [facility] Stop: 08/06/21 20:59 Last Admin: 07/31/21 08:19 Dose: 500,000 units Documented by: Ondansetron HCl (Ondansetron 4 Mg/2 Ml Vial) 4 mg IV Q4HP PRN PRN Reason: Nausea And Vomiting Pantoprazole Sodium (Pantoprazole 40 Mg Tablet) 40 mg PO QAMAC [facility] Last Admin: 07/31/21 08:18 Dose: 40 mg Documented by: Polyethylene Glycol (Polyethylene Glycol 3350 17 Gm Packet) 17 gm PO DAILYP PRN PRN Reason: Constipation Potassium Chloride (Potassium Chloride 20 Meq Tablet) 40 meq PO UD PRN PRN Reason: Potssium is 3-3.5 Potassium Chloride (Potassium Chloride 20 Meq Tablet) 40 meq PO UD PRN PRN Reason: Potassium < 3 Sodium Chloride (0.9 % Sodium Chloride 10 Ml Syringe) 10 ml IV Q8 [facility] Last Admin: 07/31/21 04:04 Dose: 10 ml Documented by: A/P Assessment and plan (1) Pneumonia due to COVID-19 virus: Status: Acute (2) Hyperlipidemia: Status: Chronic Qualifiers: Hyperlipidemia type: pure hypercholesterolemia Qualified Code(s): E78.00 - Pure hypercholesterolemia, unspecified; E78.00 - Pure hypercholesterolemia, unspecified; E78.00 - Pure hypercholesterolemia, unspecified; E78.0 - Pure hypercholesterolemia (3) Hypertension, essential: Status: Chronic (4) CAD (coronary artery disease): Status: Acute Qualifiers: Coronary Disease-Associated Artery/Lesion type: unspecified vessel or lesion type [place] vs. transplanted heart: [place] heart Associated angina: with unspecified angina Qualified Code(s): I25.119 - Atherosclerotic heart disease of [place] coronary artery with unspecified angina pectoris (5) Subthalamic lacunar stroke: Status: Acute (6) Dysphagia: Status: Acute Narrative A/P Narrative: Assessment and Plans: 1. CoVID pneumonia: Stays in inpatient med surg telemetry Isolations protocol: Airborne and contact Incentive spirometry Prone if tolerated Chest x-ray at least every few days CBC with auto differential in the morning to trend WBC Remdesivir will extend for 10-day total course Dexamethasone Lovenox Tylenol as needed fever Oxygen therapy titrate to achieve SPO2 above or equal to 92%, currently on 7L/min 2. Dysphagia: Secondary to old stroke Speech therapy evaluation and treatment 3. History of essential hypertension's: Losartan Amlodipine 4. History of mixed dyslipidemia: Continue fenofibrate #5 history of CAD: Continue aspirin Continue Plavix Continue fenofibrate #6 history of CVA: Continue aspirin Continue Plavix Continue fenofibrate 7. Constipation: Stool softeners and Laxatives Suppositories and Enema PRN constipation GI prophylaxis: P.o. Protonix DVT prophylaxis: Lovenox CODE STATUS: DO NOT INTUBATE Prognosis: Stable Disposition: Transfer to inpatient med surg telemetry Time Spent With Patient Time: Total time spent is greater than 50% in coordination of care (as documented) at patient's floor/unit and/or counseling patient: QUALITY VTE Deep Vein Thrombosis/Pulmonary Embolism Present on Admission: No
[2021-07-31] MEDS: FLUTICASONE PROPIONATE SPRAY.NAS NS SCH (11:19)
[2021-07-31] MEDS: REMDESIVIR 100 MG in 0.9 % SODIUM CHLORIDE 250 ML IV SCH (11:30)
[2021-07-31] MEDS ORDERED: BISACODYL 10 MG SUPP.RECT PR PRN (12:24)
[2021-07-31] MEDS ORDERED: traMADol 50 MG TABLET PO ONE ×3 (20:45)
[2021-07-31] MEDS: traMADol 50 MG TABLET PO PRN (20:46)
[2021-08-01] MEDS: 0.9 % SODIUM CHLORIDE 10 ML SYRINGE IV SCH ×3 (05:07→20:45)
[2021-08-01 07:15] LABS: Basophils # (Auto) 0.01 K/mcL (0.00-0.30); Basophils % (Auto) 0.1 % (0.0-2.0); Eosinophils # (Auto) 0.09 K/mcL (0.00-0.70); Eosinophils % (Auto) 1.1 % (0.0-7.0); Hematocrit 44.3 % (34.1-44.9); Hemoglobin 14.9 g/dL (11.2-15.7); Lymphocytes # (Auto) 1.74 K/mcL (1.50-4.80); Lymphocytes % (Auto) 22.2 % (15.5-49.0); Mean Cell Volume 90.6 fL (80.0-100.0); Mean Corpuscular HGB Conc 33.6 g/dL (31.0-36.0); Mean Platelet Volume 10.8 fL (7.4-10.4); Monocytes # (Auto) 0.64 K/mcL (0.10-0.90); Monocytes % (Auto) 8.2 % (1.0-12.0); Neutrophils % (Auto) 68.4 % (38.0-78.0); Platelet Count 415 K/mcL (140-440); RBC 4.89 M/mcL (3.59-5.38); Red Cell Distribution Width 13.1 % (11.5-14.5); WBC 7.9 K/mcL (4.5-11.0)
[2021-08-01 07:47] LABS: ALT/SGPT 56 U/L (<40); AST/SGOT 37 U/L (<32); Albumin 3.1 gm/dL (3.2-5.2); Albumin/Globulin Ratio 1.3 (1.0-2.3); Alkaline Phosphatase 48 U/L (39-117); Bilirubin,Total 0.6 mg/dL (0.1-1.0); Blood Urea Nitrogen 33 mg/dL (8-23); Calcium 9.1 mg/dL (8.6-10.4); Carbon Dioxide 22 mmol/L (22-30); Chloride 107 mmol/L (96-108); Globulin 2.3 gm/dL (2.2-3.7); Glomerular Filtration Rate 91; Glucose 84 mg/dL (70-105)
[2021-08-01] MEDS: LOSARTAN 50 MG TABLET PO SCH (08:45)
[2021-08-01] MEDS: CLOPIDOGREL 75 MG TABLET PO SCH (08:45)
[2021-08-01] MEDS: CETIRIZINE 10 MG TABLET PO SCH (08:45)
[2021-08-01] MEDS: amLODIPine 10 MG TABLET PO SCH (08:46)
[2021-08-01] MEDS: FENOFIBRATE 43 MG CAPSULE PO SCH (08:46)
[2021-08-01] MEDS: DEXAMETHASONE 4 MG TABLET PO SCH (08:46)
[2021-08-01] MEDS: PANTOPRAZOLE 40 MG TABLET PO SCH (08:46)
[2021-08-01] MEDS: CYANOCOBALAMIN (VITAMIN B-12) 500 MCG TABLET PO SCH (08:46)
[2021-08-01] MEDS: NYSTATIN 500,000 UNITS/5 ML ORAL.SUSP SSW SCH ×4 (08:47→20:44)
[2021-08-01] MEDS: ASPIRIN 81 MG TAB.CHEW PO SCH (08:47)
[2021-08-01] MEDS: ENOXAPARIN 40 MG/0.4 ML SYRINGE SQ SCH (08:47)
[2021-08-01] MEDS: FLUTICASONE PROPIONATE SPRAY.NAS NS SCH (10:00)
[2021-08-01] MEDS: REMDESIVIR 100 MG in 0.9 % SODIUM CHLORIDE 250 ML IV SCH (11:24)
--- NOTE | 2021-08-01 12:06 | Internal Med Progress Note ---
SUBJECTIVE Subjective Patient information: Note initiated : 08/01/21 at 12:04 pm Service Date, if different from initiated Date: [] Patient: Loni Dasilva a 71 y/o F admitted on 07/23/21 for COVID, SHORTNESS OF BREATH. Chief Complaint: [CoVID pneumonia] Interval history: History of present illness: Ms. Dasilva is a 71 year old F Who presents the ED requesting monoclonal antibodies for recent positive Covid test but found to be hypoxic. Patient states over the past 1 to 2 weeks she has had increased weakness and fatigue. She has had fevers chills and some diarrhea. She also has a cough that is occasionally productive. She does not feel short of breath although her son says she looks like she is short of breath at times. He was at her manager plumbing office this last week Dr. Villasenor and had a Covid test which they found out the other day was positive. At that time they called her PCP who recommended going to the ER and getting monoclonal antibody soon as they were able. When she arrived to the ED she almost had a syncopal episode it sounds like in the car. Her sats were in the mid 80s. Patient is accompanied by her son. She did not get the vaccine because she has had a bad response to the polio vaccine as well as the flu vaccine 07/24 Patient doing well so far on 4 L nasal cannula. Has occasional cough. States her shortness of breath mildly improved. 07/25 Patient up to 10 L oxygen mask this morning. Will place patient on heated high flow. Patient complains of cough and shortness of breath. Shortness of breath worsens when she has coughing fits. 07/26 Patient on Vapotherm at 50 L/min and FiO2 of 50. Patient states she does feel little bit stronger today and feels like breathing is a little bit better. Still has productive cough. She desats pretty easily when she moves on her right side. 07/27 Has been 45 L and 50 to 90%. She does best left lateral recumbent. Currently sitting up in chair. Patient has cough and shortness of breath similar yesterday. She says she is a little more tired today but has been up out of bed more. 07/28: Afebrile overnight. Been on high flow oxygen therapy, 30L/min FiO2 40% at rest. c/o choking. c/o SOB. c/o cough with yellow sputum. Denies wheezing. Denies chest pain. Denies fever, chills, or sweating. 07/29: Afebrile overnight. Been on high flow oxygen therapy, 30L/min FiO2 40% overnight, and now currently on 7L/min oxygen. c/o SOB. c/o cough with yellow sputum. Denies wheezing. Denies chest pain. Denies fever, chills, or sweating. 07/30: Afebrile overnight. Been on 2L/min oxygen therapy overnight and currently. Improving SOB. c/o cough with yellow sputum. c/o general body weakness. Denies wheezing. Denies chest pain. Denies fever, chills, or sweating. 07/31: Afebrile overnight. Been on 2L/min oxygen therapy overnight and currently. Improving SOB. c/o cough with yellow sputum. c/o general body weakness. Denies wheezing. Denies chest pain. Denies fever, chills, or sweating. Constipation no bowel movement since 07/25. 08/01: Afebrile overnight. Been tolerating room air. Improving SOB. c/o nonproductive cough. c/o general body weakness. Denies wheezing. Denies chest pain. Denies fever, chills, or sweating. Constitutional Vitals: Vital Signs Temp Pulse Resp BP Pulse Ox 36.7 C 89 18 105/54 93 08/01/21 11:31 08/01/21 11:31 08/01/21 11:31 08/01/21 11:31 08/01/21 11:31 Period Temp Pulse Resp BP Sys/Wright Pulse Ox Last 24 Hr 36.2 C-36.7 C 85-102 18-20 105-121/54-69 91-97 Intake and Output 07/31/21 08/01/21 08/01/21 21:59 05:59 13:59 Intake Total 450 120 Output Total 400 Balance 50 120 Weight 50.009 kg Intake & Output: Intake & Output 07/31/21 08/01/21 08/01/21 21:59 05:59 13:59 Intake Total 450 120 Output Total 400 Balance 50 120 Weight 50.009 kg Intake: Oral 450 120 Output: Void Amount 400 Other: Meal Dinner Percent of Meal Consumed 75% Feeding Ability Assist with Tray Set Up Urine Appearance Clear Clear Urine Color Dark Yellow Bright Yellow Urine Odor Normal Normal Stool Size Small Stool Color [place] Colored Stool Consistency Loose # Voids 2 # Bowel Movements 1 General appearance: cooperative and no acute distress Head Head exam: Present atraumatic and normocephalic Eye Eye exam: Present EOMI and PERRL ENT ENT exam: Present mucous membranes moist, normal exam and normal external ear exam Neck Neck exam: Present normal inspection; Absent lymphadenopathy, tenderness and thyromegaly Respiratory Respiratory exam: Present rhonchi; Absent accessory muscle use, respiratory distress and wheezes Cardiovascular Cardiovascular exam: Present normal rate and rhythm; Absent JVD GI/Abdominal GI/Abdominal exam: Present normal bowel sounds and soft; Absent organomegaly and tenderness Extremities Exam Extremities exam: Present full ROM, normal capillary refill and normal inspection; Absent tenderness Neurological Exam Neurological exam: Present alert, CN II-XII intact and oriented X3; Absent motor sensory deficit Psychiatric Psychiatric exam: Present normal affect and normal mood; Absent anxious and depressed Skin Skin exam: Present dry and intact OBJ DATA Labs CBC & Chem 7: 08/01/21 05:29 08/01/21 05:29 Labs: Abnormal Lab Results 08/01/21 08/01/21 07/31/21 05:29 05:29 05:19 Hgb Hct MPV 10.8 H BUN 33 H 31 H Creatinine AST 37 H 48 H ALT 56 H 62 H Total Protein 5.4 L 5.5 L Albumin 3.1 L 3.1 L 07/31/21 07/30/21 07/30/21 05:19 05:52 05:52 Hgb 15.8 H Hct 47.1 H MPV 10.7 H 10.9 H BUN 24 H Creatinine 0.5 L AST 54 H ALT 57 H Total Protein 5.6 L Albumin 3.1 L Meds: Medications Acetaminophen (Acetaminophen 325 Mg Tablet) 650 mg PO Q6HP PRN PRN Reason: PAIN/FEVER > 101 Last Admin: 07/31/21 16:47 Dose: 650 mg Documented by: Albuterol/Ipratropium (Ipratropium/Albuterol 3 Ml Ampul.Neb) 3 ml NEB Q4HP PRN PRN Reason: Shortness Of Breath Alprazolam (Alprazolam 0.25 Mg Tablet) 0.25 mg PO TIDP PRN PRN Reason: Anxiety Amlodipine Besylate (Amlodipine 10 Mg Tablet) 10 mg PO DAILY [facility] Last Admin: 08/01/21 08:46 Dose: 10 mg Documented by: Aspirin (Aspirin 81 Mg Tab.Chew) 81 mg PO DAILY [facility] Last Admin: 08/01/21 08:47 Dose: 81 mg Documented by: Benzonatate (Benzonatate 100 Mg Capsule) 200 mg PO TIDP PRN PRN Reason: Cough Bisacodyl (Bisacodyl 10 Mg Supp.Rect) 10 mg SC DAILYP PRN PRN Reason: Constipation Last Admin: 07/31/21 13:54 Dose: 10 mg Documented by: Cetirizine HCl (Cetirizine 10 Mg Tablet) 10 mg PO DAILY [facility] Last Admin: 08/01/21 08:45 Dose: 10 mg Documented by: Clopidogrel Bisulfate (Clopidogrel 75 Mg Tablet) 75 mg PO QDAY [facility] Last Admin: 08/01/21 08:45 Dose: 75 mg Documented by: Cyanocobalamin (Cyanocobalamin (Vitamin B-12) 500 Mcg Tablet) 1,000 mcg PO DAILY [facility] Last Admin: 08/01/21 08:46 Dose: 1,000 mcg Documented by: Dexamethasone (Dexamethasone 4 Mg Tablet) 6 mg PO DAILY [facility] Last Admin: 08/01/21 08:46 Dose: 6 mg Documented by: Enoxaparin Sodium (Enoxaparin 40 Mg/0.4 Ml Syringe) 40 mg SQ DAILY [facility] Last Admin: 08/01/21 08:47 Dose: 40 mg Documented by: Fenofibrate (Fenofibrate 43 Mg Capsule) 43 mg PO DAILY [facility] Last Admin: 08/01/21 08:46 Dose: 43 mg Documented by: Fluticasone Propionate (Fluticasone Propionate [place]) 1 spray NS DAILY [facility] Last Admin: 08/01/21 10:00 Dose: Not Given Documented by: Guaifenesin/Codeine Phosphate (Guaifenesin/Codeine 10 Ml Udc) 10 ml PO Q4HP PRN PRN Reason: Cough Hydroxyzine HCl (Hydroxyzine 25 Mg Tablet) 50 mg PO TIDP PRN PRN Reason: Anxiety Magnesium Sulfate (Magnesium Sulfate) 2 gm in 50 mls @ 50 mls/hr IV UD PRN PRN Reason: Magnesium </= 1.6 Potassium Chloride 40 meq/ (Dextrose) 520 mls @ 130 mls/hr IV UD PRN PRN Reason: Potassium < 3 Losartan Potassium (Losartan 50 Mg Tablet) 50 mg PO QDAY [facility] Last Admin: 08/01/21 08:45 Dose: 50 mg Documented by: Nystatin (Nystatin 500,000 Units/5 Ml Oral.Susp) 500,000 units SSW QID [facility] Stop: 08/06/21 20:59 Last Admin: 08/01/21 08:47 Dose: 500,000 units Documented by: Ondansetron HCl (Ondansetron 4 Mg/2 Ml Vial) 4 mg IV Q4HP PRN PRN Reason: Nausea And Vomiting Pantoprazole Sodium (Pantoprazole 40 Mg Tablet) 40 mg PO QAMAC [facility] Last Admin: 08/01/21 08:46 Dose: 40 mg Documented by: Polyethylene Glycol (Polyethylene Glycol 3350 17 Gm Packet) 17 gm PO DAILYP PRN PRN Reason: Constipation Last Admin: 07/31/21 13:54 Dose: 17 gm Documented by: Potassium Chloride (Potassium Chloride 20 Meq Tablet) 40 meq PO UD PRN PRN Reason: Potssium is 3-3.5 Potassium Chloride (Potassium Chloride 20 Meq Tablet) 40 meq PO UD PRN PRN Reason: Potassium < 3 Sodium Chloride (0.9 % Sodium Chloride 10 Ml Syringe) 10 ml IV Q8 [facility] Last Admin: 08/01/21 05:07 Dose: 10 ml Documented by: Tramadol HCl (Tramadol 50 Mg Tablet) 50 mg PO Q8HP PRN; Protocol PRN Reason: Pain Last Admin: 07/31/21 20:46 Dose: 50 mg Documented by: A/P Assessment and plan (1) Pneumonia due to COVID-19 virus: Status: Acute (2) Hyperlipidemia: Status: Chronic Qualifiers: Hyperlipidemia type: pure hypercholesterolemia Qualified Code(s): E78.00 - Pure hypercholesterolemia, unspecified; E78.00 - Pure hypercholesterolemia, unspecified; E78.00 - Pure hypercholesterolemia, unspecified; E78.0 - Pure hypercholesterolemia (3) Hypertension, essential: Status: Chronic (4) CAD (coronary artery disease): Status: Acute Qualifiers: Coronary Disease-Associated Artery/Lesion type: unspecified vessel or lesion type [place] vs. transplanted heart: [place] heart Associated angina: with unspecified angina Qualified Code(s): I25.119 - Atherosclerotic heart disease of [place] coronary artery with unspecified angina pectoris (5) Subthalamic lacunar stroke: Status: Acute (6) Dysphagia: Status: Acute Narrative A/P Narrative: Assessment and Plans: 1. CoVID pneumonia: Stays in inpatient med surg telemetry Isolations protocol: Airborne and contact Incentive spirometry Prone if tolerated Chest x-ray at least every few days CBC with auto differential in the morning to trend WBC Remdesivir will extend for 10-day total course Dexamethasone Lovenox Tylenol as needed fever Oxygen therapy titrate to achieve SPO2 above or equal to 92%, currently tolerating room air 2. Dysphagia: Secondary to old stroke Speech therapy evaluation and treatment 3. History of essential hypertension's: Losartan Amlodipine 4. History of mixed dyslipidemia: Continue fenofibrate #5 history of CAD: Continue aspirin Continue Plavix Continue fenofibrate #6 history of CVA: Continue aspirin Continue Plavix Continue fenofibrate 7. Constipation: Stool softeners and Laxatives Suppositories and Enema PRN constipation GI prophylaxis: P.o. Protonix DVT prophylaxis: Lovenox CODE STATUS: DO NOT INTUBATE Prognosis: Stable Disposition: Transfer to inpatient med surg telemetry Time Spent With Patient Time: Total time spent is greater than 50% in coordination of care (as documented) at patient's floor/unit and/or counseling patient: QUALITY VTE Deep Vein Thrombosis/Pulmonary Embolism Present on Admission: No
[2021-08-01] MEDS: ACETAMINOPHEN 325 MG TABLET PO PRN (15:52)
[2021-08-01] MEDS: traMADol 50 MG TABLET PO PRN (20:43)
[2021-08-02] MEDS: 0.9 % SODIUM CHLORIDE 10 ML SYRINGE IV SCH ×3 (06:42→23:52)
[2021-08-02 07:43] LABS: Basophils # (Auto) 0 K/mcL (0.00-0.30); Basophils % (Auto) 0 % (0.0-2.0); Eosinophils # (Auto) 0.05 K/mcL (0.00-0.70); Eosinophils % (Auto) 0.7 % (0.0-7.0); Hematocrit 42.7 % (34.1-44.9); Hemoglobin 14.2 g/dL (11.2-15.7); Lymphocytes # (Auto) 1.63 K/mcL (1.50-4.80); Lymphocytes % (Auto) 21.8 % (15.5-49.0); Mean Corpuscular HGB Conc 33.3 g/dL (31.0-36.0); Mean Platelet Volume 10.8 fL (7.4-10.4); Monocytes # (Auto) 0.73 K/mcL (0.10-0.90); Monocytes % (Auto) 9.8 % (1.0-12.0); Neutrophils % (Auto) 67.7 % (38.0-78.0); Platelet Count 373 K/mcL (140-440); RBC 4.69 M/mcL (3.59-5.38); Red Cell Distribution Width 13.1 % (11.5-14.5); WBC 7.5 K/mcL (4.5-11.0)
[2021-08-02 08:16] LABS: ALT/SGPT 44 U/L (<40); AST/SGOT 26 U/L (<32); Albumin 2.9 gm/dL (3.2-5.2); Albumin/Globulin Ratio 1.3 (1.0-2.3); Alkaline Phosphatase 46 U/L (39-117); Bilirubin,Total 0.5 mg/dL (0.1-1.0); Blood Urea Nitrogen 35 mg/dL (8-23); Carbon Dioxide 22 mmol/L (22-30); Chloride 107 mmol/L (96-108); Globulin 2.2 gm/dL (2.2-3.7); Glomerular Filtration Rate 97; Glucose 80 mg/dL (70-105)
[2021-08-02] MEDS: CLOPIDOGREL 75 MG TABLET PO SCH (08:28)
[2021-08-02] MEDS: FENOFIBRATE 43 MG CAPSULE PO SCH (08:28)
[2021-08-02] MEDS: amLODIPine 10 MG TABLET PO SCH (08:29)
[2021-08-02] MEDS: ENOXAPARIN 40 MG/0.4 ML SYRINGE SQ SCH (08:29)
[2021-08-02] MEDS: CYANOCOBALAMIN (VITAMIN B-12) 500 MCG TABLET PO SCH (08:29)
[2021-08-02] MEDS: LOSARTAN 50 MG TABLET PO SCH (08:29)
[2021-08-02] MEDS: FLUTICASONE PROPIONATE SPRAY.NAS NS SCH (08:29)
[2021-08-02] MEDS: PANTOPRAZOLE 40 MG TABLET PO SCH (08:29)
[2021-08-02] MEDS: ASPIRIN 81 MG TAB.CHEW PO SCH (08:29)
[2021-08-02] MEDS: CETIRIZINE 10 MG TABLET PO SCH (08:29)
[2021-08-02] MEDS: NYSTATIN 500,000 UNITS/5 ML ORAL.SUSP SSW SCH ×4 (08:30→20:02)
--- NOTE | 2021-08-02 11:46 | Internal Med Progress Note ---
SUBJECTIVE Subjective Patient information: Note initiated : 08/02/21 at 11:43 am Service Date, if different from initiated Date: [] Patient: Loni Dasilva a 71 y/o F admitted on 07/23/21 for COVID, SHORTNESS OF BREATH. Chief Complaint: [CoVID pneumonia] Interval history: History of present illness: Ms. Dasilva is a 71 year old F Who presents the ED requesting monoclonal antibodies for recent positive Covid test but found to be hypoxic. Patient states over the past 1 to 2 weeks she has had increased weakness and fatigue. She has had fevers chills and some diarrhea. She also has a cough that is occasionally productive. She does not feel short of breath although her son says she looks like she is short of breath at times. He was at her [facility] office this last week Dr. Villasenor and had a Covid test which they found out the other day was positive. At that time they called her PCP who recommended going to the ER and getting monoclonal antibody soon as they were able. When she arrived to the ED she almost had a syncopal episode it sounds like in the car. Her sats were in the mid 80s. Patient is accompanied by her son. She did not get the vaccine because she has had a bad response to the polio vaccine as well as the flu vaccine 07/24 Patient doing well so far on 4 L nasal cannula. Has occasional cough. States her shortness of breath mildly improved. 07/25 Patient up to 10 L oxygen mask this morning. Will place patient on heated high flow. Patient complains of cough and shortness of breath. Shortness of breath worsens when she has coughing fits. 07/26 Patient on Vapotherm at 50 L/min and FiO2 of 50. Patient states she does feel little bit stronger today and feels like breathing is a little bit better. Still has productive cough. She desats pretty easily when she moves on her right side. 07/27 Has been 45 L and 50 to 90%. She does best left lateral recumbent. Currently sitting up in chair. Patient has cough and shortness of breath similar yesterday. She says she is a little more tired today but has been up out of bed more. 07/28: Afebrile overnight. Been on high flow oxygen therapy, 30L/min FiO2 40% at rest. c/o choking. c/o SOB. c/o cough with yellow sputum. Denies wheezing. Denies chest pain. Denies fever, chills, or sweating. 07/29: Afebrile overnight. Been on high flow oxygen therapy, 30L/min FiO2 40% overnight, and now currently on 7L/min oxygen. c/o SOB. c/o cough with yellow sputum. Denies wheezing. Denies chest pain. Denies fever, chills, or sweating. 07/30: Afebrile overnight. Been on 2L/min oxygen therapy overnight and currently. Improving SOB. c/o cough with yellow sputum. c/o general body weakness. Denies wheezing. Denies chest pain. Denies fever, chills, or sweating. 07/31: Afebrile overnight. Been on 2L/min oxygen therapy overnight and currently. Improving SOB. c/o cough with yellow sputum. c/o general body weakness. Denies wheezing. Denies chest pain. Denies fever, chills, or sweating. Constipation no bowel movement since 07/25. 08/01: Afebrile overnight. Been tolerating room air. Improving SOB. c/o nonproductive cough. c/o general body weakness. Denies wheezing. Denies chest pain. Denies fever, chills, or sweating. 08/02: Afebrile. Tolerating room air. Isolation protocol removed. c/o general body weakness. c/o improving SOB. c/o nonproductive cough. Denies wheezing. Denies chest pain. Denies fever, chills, or sweating. Constitutional Vitals: Vital Signs Temp Pulse Resp BP Pulse Ox 36.3 C 68 16 122/65 95 08/02/21 06:37 08/02/21 06:37 08/02/21 06:37 08/02/21 06:37 08/02/21 06:37 Period Temp Pulse Resp BP Sys/Wright Pulse Ox Last 24 Hr 36.1 C-36.8 C 68-96 14-18 103-123/56-68 92-97 Intake and Output 08/01/21 08/02/21 08/02/21 21:59 05:59 13:59 Intake Total 250 120 Balance 250 120 Weight 50.462 kg Intake & Output: Intake & Output 08/01/21 08/02/21 08/02/21 21:59 05:59 13:59 Intake Total 250 120 Balance 250 120 Weight 50.462 kg Intake: IV 250 Veklury 100 mg In Sodium 250 Chloride 0.9% 250 ml @ 500 mls/ hr IV Q24H [facility] Rx#:[id number] Oral 120 Other: Meal Breakfast Percent of Meal Consumed 50% Feeding Ability Assist with Tray Set Up Urine Appearance Clear Urine Color Bright Yellow Urine Odor Strong # Voids 1 General appearance: cooperative and no acute distress Head Head exam: Present atraumatic and normocephalic Eye Eye exam: Present EOMI and PERRL ENT ENT exam: Present mucous membranes moist, normal exam and normal external ear exam Neck Neck exam: Present normal inspection; Absent lymphadenopathy, tenderness and thyromegaly Respiratory Respiratory exam: Absent accessory muscle use, respiratory distress and wheezes Cardiovascular Cardiovascular exam: Present normal rate and rhythm; Absent JVD GI/Abdominal GI/Abdominal exam: Present normal bowel sounds and soft; Absent organomegaly and tenderness Extremities Exam Extremities exam: Present full ROM, normal capillary refill and normal inspection; Absent tenderness Neurological Exam Neurological exam: Present alert, CN II-XII intact and oriented X3; Absent motor sensory deficit Psychiatric Psychiatric exam: Present normal affect and normal mood; Absent anxious and depressed Skin Skin exam: Present dry and intact OBJ DATA Labs CBC & Chem 7: 08/02/21 05:18 08/02/21 05:18 Labs: Abnormal Lab Results 08/02/21 08/02/21 08/01/21 05:18 05:18 05:29 MPV 10.8 H BUN 35 H 33 H Creatinine 0.5 L AST 37 H ALT 44 H 56 H Total Protein 5.1 L 5.4 L Albumin 2.9 L 3.1 L 08/01/21 07/31/21 07/31/21 05:29 05:19 05:19 MPV 10.8 H 10.7 H BUN 31 H Creatinine AST 48 H ALT 62 H Total Protein 5.5 L Albumin 3.1 L Meds: Medications Acetaminophen (Acetaminophen 325 Mg Tablet) 650 mg PO Q6HP PRN PRN Reason: PAIN/FEVER > 101 Last Admin: 08/01/21 15:52 Dose: 650 mg Documented by: Albuterol/Ipratropium (Ipratropium/Albuterol 3 Ml Ampul.Neb) 3 ml NEB Q4HP PRN PRN Reason: Shortness Of Breath Alprazolam (Alprazolam 0.25 Mg Tablet) 0.25 mg PO TIDP PRN PRN Reason: Anxiety Amlodipine Besylate (Amlodipine 10 Mg Tablet) 10 mg PO DAILY [facility] Last Admin: 08/02/21 08:29 Dose: 10 mg Documented by: Aspirin (Aspirin 81 Mg Tab.Chew) 81 mg PO DAILY [facility] Last Admin: 08/02/21 08:29 Dose: 81 mg Documented by: Benzonatate (Benzonatate 100 Mg Capsule) 200 mg PO TIDP PRN PRN Reason: Cough Bisacodyl (Bisacodyl 10 Mg Supp.Rect) 10 mg TN DAILYP PRN PRN Reason: Constipation Last Admin: 07/31/21 13:54 Dose: 10 mg Documented by: Cetirizine HCl (Cetirizine 10 Mg Tablet) 10 mg PO DAILY [facility] Last Admin: 08/02/21 08:29 Dose: 10 mg Documented by: Clopidogrel Bisulfate (Clopidogrel 75 Mg Tablet) 75 mg PO QDAY [facility] Last Admin: 08/02/21 08:28 Dose: 75 mg Documented by: Cyanocobalamin (Cyanocobalamin (Vitamin B-12) 500 Mcg Tablet) 1,000 mcg PO DAILY [facility] Last Admin: 08/02/21 08:29 Dose: 1,000 mcg Documented by: Enoxaparin Sodium (Enoxaparin 40 Mg/0.4 Ml Syringe) 40 mg SQ DAILY [facility] Last Admin: 08/02/21 08:29 Dose: 40 mg Documented by: Fenofibrate (Fenofibrate 43 Mg Capsule) 43 mg PO DAILY [facility] Last Admin: 08/02/21 08:28 Dose: 43 mg Documented by: Fluticasone Propionate (Fluticasone Propionate [place]) 1 spray NS DAILY [facility] Last Admin: 08/02/21 08:29 Dose: Not Given Documented by: Guaifenesin/Codeine Phosphate (Guaifenesin/Codeine 10 Ml Udc) 10 ml PO Q4HP PRN PRN Reason: Cough Hydroxyzine HCl (Hydroxyzine 25 Mg Tablet) 50 mg PO TIDP PRN PRN Reason: Anxiety Magnesium Sulfate (Magnesium Sulfate) 2 gm in 50 mls @ 50 mls/hr IV UD PRN PRN Reason: Magnesium </= 1.6 Potassium Chloride 40 meq/ (Dextrose) 520 mls @ 130 mls/hr IV UD PRN PRN Reason: Potassium < 3 Losartan Potassium (Losartan 50 Mg Tablet) 50 mg PO QDAY [facility] Last Admin: 08/02/21 08:29 Dose: 50 mg Documented by: Nystatin (Nystatin 500,000 Units/5 Ml Oral.Susp) 500,000 units SSW QID [facility] Stop: 08/06/21 20:59 Last Admin: 08/02/21 08:30 Dose: 500,000 units Documented by: Ondansetron HCl (Ondansetron 4 Mg/2 Ml Vial) 4 mg IV Q4HP PRN PRN Reason: Nausea And Vomiting Pantoprazole Sodium ([facility]ole 40 Mg Tablet) [facility] Admin: 08/02/21 08:29 Dose: 40 mg Documented by: Polyethylene Glycol (Polyethylene Glycol 3350 17 Gm Packet) 17 gm PO DAILYP PRN PRN Reason: Constipation Last Admin: 07/31/21 13:54 Dose: 17 gm Documented by: Potassium Chloride (Potassium Chloride 20 Meq Tablet) 40 meq PO UD PRN PRN Reason: Potssium is 3-3.5 Potassium Chloride (Potassium Chloride 20 Meq Tablet) 40 meq PO UD PRN PRN Reason: Potassium < 3 Sodium Chloride (0.9 % Sodium Chloride 10 Ml Syringe) 10 ml IV Q8 [facility] Last Admin: 08/02/21 06:42 Dose: 10 ml Documented by: Tramadol HCl (Tramadol 50 Mg Tablet) 50 mg PO Q8HP PRN; Protocol PRN Reason: Pain Last Admin: 08/01/21 20:43 Dose: 50 mg Documented by: A/P Assessment and plan (1) Pneumonia due to COVID-19 virus: Status: Acute (2) Hyperlipidemia: Status: Chronic Qualifiers: Hyperlipidemia type: pure hypercholesterolemia Qualified Code(s): E78.00 - Pure hypercholesterolemia, unspecified; E78.00 - Pure hypercholesterolemia, unspecified; E78.00 - Pure hypercholesterolemia, unspecified; E78.0 - Pure hypercholesterolemia (3) Hypertension, essential: Status: Chronic (4) CAD (coronary artery disease): Status: Acute Qualifiers: Coronary Disease-Associated Artery/Lesion type: unspecified vessel or lesion type [place] vs. transplanted heart: [place] heart Associated angina: with unspecified angina Qualified Code(s): I25.119 - Atherosclerotic heart disease of [place] coronary artery with unspecified angina pectoris (5) Subthalamic lacunar stroke: Status: Acute (6) Dysphagia: Status: Acute Narrative A/P Narrative: Assessment and Plans: 1. CoVID pneumonia: Stays in inpatient med surg telemetry Remove isolations protocols Incentive spirometry Prone if tolerated Chest x-ray at least every few days CBC with auto differential in the morning to trend WBC Finished Remdesivir Finished Dexamethasone Lovenox Tylenol as needed fever Oxygen therapy titrate to achieve SPO2 above or equal to 92%, currently tolerating room air 2. Dysphagia: Secondary to old stroke Speech therapy evaluation and treatment 3. History of essential hypertension's: Losartan Amlodipine 4. History of mixed dyslipidemia: Continue fenofibrate #5 history of CAD: Continue aspirin Continue Plavix Continue fenofibrate #6 history of CVA: Continue aspirin Continue Plavix Continue fenofibrate 7. Constipation: Stool softeners and Laxatives Suppositories and Enema PRN constipation GI prophylaxis: P.o. Protonix DVT prophylaxis: Lovenox CODE STATUS: DO NOT INTUBATE Prognosis: Stable Disposition: inpatient med surg telemetry, PT-->SNF placement Time Spent With Patient Time: Total time spent is greater than 50% in coordination of care (as documented) at patient's floor/unit and/or counseling patient: QUALITY VTE Deep Vein Thrombosis/Pulmonary Embolism Present on Admission: No
[2021-08-02] MEDS: traMADol 50 MG TABLET PO PRN (20:03)
[2021-08-03] MEDS: 0.9 % SODIUM CHLORIDE 10 ML SYRINGE IV SCH (05:57)
[2021-08-03 07:03] LABS: Basophils # (Auto) 0.02 K/mcL (0.00-0.30); Basophils % (Auto) 0.4 % (0.0-2.0); Eosinophils # (Auto) 0.15 K/mcL (0.00-0.70); Eosinophils % (Auto) 3.1 % (0.0-7.0); Hematocrit 41.8 % (34.1-44.9); Hemoglobin 13.8 g/dL (11.2-15.7); Lymphocytes # (Auto) 1.98 K/mcL (1.50-4.80); Lymphocytes % (Auto) 41.5 % (15.5-49.0); Mean Cell Volume 89.9 fL (80.0-100.0); Mean Platelet Volume 10.9 fL (7.4-10.4); Monocytes # (Auto) 0.52 K/mcL (0.10-0.90); Monocytes % (Auto) 10.9 % (1.0-12.0); Neutrophils % (Auto) 44.1 % (38.0-78.0); Platelet Count 365 K/mcL (140-440); RBC 4.65 M/mcL (3.59-5.38); Red Cell Distribution Width 12.9 % (11.5-14.5); WBC 4.8 K/mcL (4.5-11.0)
[2021-08-03] MEDS: PANTOPRAZOLE 40 MG TABLET PO SCH (07:20)
[2021-08-03 07:35] LABS: ALT/SGPT 41 U/L (<40); AST/SGOT 33 U/L (<32); Albumin 2.8 gm/dL (3.2-5.2); Albumin/Globulin Ratio 1.3 (1.0-2.3); Alkaline Phosphatase 41 U/L (39-117); Bilirubin,Total 0.6 mg/dL (0.1-1.0); Blood Urea Nitrogen 30 mg/dL (8-23); Calcium 9.2 mg/dL (8.6-10.4); Carbon Dioxide 25 mmol/L (22-30); Chloride 106 mmol/L (96-108); Globulin 2.1 gm/dL (2.2-3.7); Glomerular Filtration Rate 97; Glucose 79 mg/dL (70-105)
[2021-08-03] MEDS: NYSTATIN 500,000 UNITS/5 ML ORAL.SUSP SSW SCH ×2 (09:33→12:41)
[2021-08-03] MEDS: ENOXAPARIN 40 MG/0.4 ML SYRINGE SQ SCH (09:33)
[2021-08-03] MEDS: CYANOCOBALAMIN (VITAMIN B-12) 500 MCG TABLET PO SCH (09:33)
[2021-08-03] MEDS: amLODIPine 10 MG TABLET PO SCH (09:34)
[2021-08-03] MEDS: LOSARTAN 50 MG TABLET PO SCH (09:34)
[2021-08-03] MEDS: CLOPIDOGREL 75 MG TABLET PO SCH (09:34)
[2021-08-03] MEDS: CETIRIZINE 10 MG TABLET PO SCH (09:34)
[2021-08-03] MEDS: ASPIRIN 81 MG TAB.CHEW PO SCH (09:34)
[2021-08-03] MEDS: FENOFIBRATE 43 MG CAPSULE PO SCH (09:34)
--- NOTE | 2021-08-03 11:36 | Discharge Summary ---
Discharge Provider Provider Patient information: Note initiated : 08/03/21 at 11:35 am Service Date, if different from initiated Date: [] Patient: Loni Dasilva a 71 y/o F admitted on 07/23/21 for COVID, SHORTNESS OF BREATH. Chief Complaint: [CoVID pneumonia] History of present illness: Ms. Dasilva is a 71 year old F Who presents the ED requesting monoclonal antibodies for recent positive Covid test but found to be hypoxic. Patient states over the past 1 to 2 weeks she has had increased weakness and fatigue. She has had fevers chills and some diarrhea. She also has a cough that is occasionally productive. She does not feel short of breath although her son says she looks like she is short of breath at times. He was at her [facility] office this last week Dr. Villasenor and had a Covid test which they found out the other day was positive. At that time they called her PCP who recommended going to the ER and getting monoclonal antibody soon as they were able. When she arrived to the ED she almost had a syncopal episode it sounds like in the car. Her sats were in the mid 80s. Patient is accompanied by her son. She did not get the vaccine because she has had a bad response to the polio vaccine as well as the flu vaccine Date of admission: 07/23/21 16:17 Discharge date: 08/03/21 Primary care physician: Armando Odonnell DO Consults: 07/23/21 Consult to Physician [CONS] Stat Comment: Consulting Provider: Abraham Frazier Reason For Exam: Physician to Consult 08/03/21 07:30 Consult to Physician [CONS] Routine Comment: snf referral Consulting Provider: [facility] Reason For Exam: Physician to Consult Discharge Meds Discharge Medications Home Medications multivitamin 1 tab PO QHS 08/09/17 [History Confirmed 07/23/21 Last Taken 07/22/21 21:00] vitamin E (dl, acetate) 450 mg (1,000 unit) capsule 1,000 unit PO QHS 08/09/17 [History Confirmed 07/23/21 Last Taken 07/22/21 21:00] fluticasone propionate 50 mcg/actuation nasal spray,suspension 1 spray INTRANASAL QDAY #15.8 ml 10/04/20 [Rx Confirmed 07/23/21 Last Taken 07/22/21 21:00] aspirin 81 mg tablet,delayed release 81 mg PO QHS 10/05/20 [History Confirmed 07/23/21 Last Taken 07/22/21 21:00] evening primrose oil 500 mg capsule 1,000 mg PO QHS cap 10/05/20 [History Confirmed 07/23/21 Last Taken 07/22/21 21:00] syringe with needle 3 mL 25 gauge x 1" See Rx Instructions .ROUTE .COMPLEX #100 ea 01/27/21 [Rx Confirmed 07/23/21 Last Taken Unknown] estradiol cypionate 5 mg/mL intramuscular oil 5 mg IM Q4W #5 ml 01/31/21 [Rx Confirmed 07/23/21 Last Taken Unknown] clopidogrel 75 mg tablet 75 mg PO QDAY #90 tab 05/03/21 [Rx Confirmed 07/23/21 Last Taken 07/22/21 21:00] cholecalciferol (vitamin D3) 50 mcg (2,000 unit) capsule 50 mcg PO QDAY #90 cap 05/04/21 [Rx Confirmed 07/23/21 Last Taken 07/22/21 21:00] mecobalamin (vitamin B12) 1,000 mcg chewable tablet 1,000 mcg PO QDAY #90 tab 05/04/21 [Rx Confirmed 07/23/21 Last Taken Unknown] magnesium 250 mg tablet 500 mg PO QHS tab 07/19/21 [History Confirmed 07/23/21 Last Taken 07/22/21 21:00] omega 5-kof-yrl-fish oil 900 mg-1,400 mg capsule,delayed release 1 cap PO BID cap 07/19/21 [History Confirmed 07/23/21 Last Taken 07/22/21 21:00] fenofibrate 54 mg tablet 54 mg PO QDAY #90 tab 07/21/21 [Rx Confirmed 07/23/21 Last Taken 07/22/21 21:00] losartan 50 mg tablet 50 mg PO QDAY #90 tab 07/21/21 [Rx Confirmed 07/23/21 Last Taken 07/22/21 21:00] cetirizine [Zyrtec] 10 mg PO QDAY 07/24/21 [History Confirmed 07/24/21 Last Taken 07/23/21] amlodipine 10 mg PO DAILY #30 tab 08/03/21 [Rx Last Taken Unknown] benzonatate 200 mg PO TIDP PRN #30 cap 08/03/21 [Rx Last Taken Unknown] nystatin 500,000 units SSW QID 10 Days #200 ml 08/03/21 [Rx Last Taken Unknown] COURSE Hospital Course Hospital course: 07/24 Patient doing well so far on 4 L nasal cannula. Has occasional cough. States her shortness of breath mildly improved. 07/25 Patient up to 10 L oxygen mask this morning. Will place patient on heated high flow. Patient complains of cough and shortness of breath. Shortness of breath worsens when she has coughing fits. 07/26 Patient on Vapotherm at 50 L/min and FiO2 of 50. Patient states she does feel little bit stronger today and feels like breathing is a little bit better. Still has productive cough. She desats pretty easily when she moves on her right side. 07/27 Has been 45 L and 50 to 90%. She does best left lateral recumbent. Currently sitting up in chair. Patient has cough and shortness of breath similar yesterday. She says she is a little more tired today but has been up out of bed more. 07/28: Afebrile overnight. Been on high flow oxygen therapy, 30L/min FiO2 40% at rest. c/o choking. c/o SOB. c/o cough with yellow sputum. Denies wheezing. Denies chest pain. Denies fever, chills, or sweating. 07/29: Afebrile overnight. Been on high flow oxygen therapy, 30L/min FiO2 40% overnight, and now currently on 7L/min oxygen. c/o SOB. c/o cough with yellow sputum. Denies wheezing. Denies chest pain. Denies fever, chills, or sweating. 07/30: Afebrile overnight. Been on 2L/min oxygen therapy overnight and currently. Improving SOB. c/o cough with yellow sputum. c/o general body weakness. Denies wheezing. Denies chest pain. Denies fever, chills, or sweating. 07/31: Afebrile overnight. Been on 2L/min oxygen therapy overnight and currently. Improving SOB. c/o cough with yellow sputum. c/o general body weakness. Denies wheezing. Denies chest pain. Denies fever, chills, or sweating. Constipation no bowel movement since 07/25. 08/01: Afebrile overnight. Been tolerating room air. Improving SOB. c/o nonproductive cough. c/o general body weakness. Denies wheezing. Denies chest pain. Denies fever, chills, or sweating. 08/02: Afebrile. Tolerating room air. Isolation protocol removed. c/o general body weakness. c/o improving SOB. c/o nonproductive cough. Denies wheezing. Denies chest pain. Denies fever, chills, or sweating. Discharge diagnosis: covid pneumonia Time Spent with Patient Time attestation: Total time spent providing and/or coordinating discharge services: 07/24 Patient doing well so far on 4 L nasal cannula. Has occasional cough. States her shortness of breath mildly improved. 07/25 Patient up to 10 L oxygen mask this morning. Will place patient on heated high flow. Patient complains of cough and shortness of breath. Shortness of breath worsens when she has coughing fits. 07/26 Patient on Vapotherm at 50 L/min and FiO2 of 50. Patient states she does feel little bit stronger today and feels like breathing is a little bit better. Still has productive cough. She desats pretty easily when she moves on her right side. 07/27 Has been 45 L and 50 to 90%. She does best left lateral recumbent. Currently sitting up in chair. Patient has cough and shortness of breath similar yesterday. She says she is a little more tired today but has been up out of bed more. 07/28: Afebrile overnight. Been on high flow oxygen therapy, 30L/min FiO2 40% at rest. c/o choking. c/o SOB. c/o cough with yellow sputum. Denies wheezing. Denies chest pain. Denies fever, chills, or sweating. 07/29: Afebrile overnight. Been on high flow oxygen therapy, 30L/min FiO2 40% overnight, and now currently on 7L/min oxygen. c/o SOB. c/o cough with yellow sputum. Denies wheezing. Denies chest pain. Denies fever, chills, or sweating. 07/30: Afebrile overnight. Been on 2L/min oxygen therapy overnight and currently. Improving SOB. c/o cough with yellow sputum. c/o general body weakness. Denies wheezing. Denies chest pain. Denies fever, chills, or sweating. 07/31: Afebrile overnight. Been on 2L/min oxygen therapy overnight and currently. Improving SOB. c/o cough with yellow sputum. c/o general body weakness. Denies wheezing. Denies chest pain. Denies fever, chills, or sweating. Constipation no bowel movement since 07/25. 08/01: Afebrile overnight. Been tolerating room air. Improving SOB. c/o nonproductive cough. c/o general body weakness. Denies wheezing. Denies chest pain. Denies fever, chills, or sweating. 08/02: Afebrile. Tolerating room air. Isolation protocol removed. c/o general body weakness. c/o improving SOB. c/o nonproductive cough. Denies wheezing. Denies chest pain. Denies fever, chills, or sweating. 08/03: Discharged to SNF. EXAM Constitutional Vitals: Temp Pulse Resp BP Pulse Ox 36.9 C 84 17 106/58 95 08/03/21 06:32 08/03/21 06:32 08/03/21 06:32 08/03/21 06:32 08/03/21 06:32 General appearance: cooperative and no acute distress Head Head exam: Present atraumatic and normocephalic Eye Eye exam: Present EOMI and PERRL ENT ENT exam: Present mucous membranes moist, normal exam and normal external ear exam Neck Neck exam: Present normal inspection; Absent lymphadenopathy, tenderness and thyromegaly Respiratory Respiratory exam: Absent accessory muscle use, respiratory distress and wheezes Cardiovascular Cardiovascular exam: Present normal rate and rhythm; Absent JVD GI/Abdominal GI/Abdominal exam: Present normal bowel sounds and soft; Absent organomegaly and tenderness Extremities Exam Extremities exam: Present full ROM, normal capillary refill and normal inspection; Absent tenderness Neurological Exam Neurological exam: Present alert, CN II-XII intact and oriented X3; Absent motor sensory deficit Psychiatric Psychiatric exam: Present normal affect and normal mood; Absent anxious and depressed Skin Skin exam: Present dry and intact Discharge Data Data Completed and Pending Labs on day of discharge: Labs from last 24 hours 10/13/21 10/13/21 05:34 05:34 WBC 4.8 RBC 4.65 Hgb 13.8 Hct 41.8 MCV 89.9 MCH 29.7 MCHC 33.0 RDW 12.9 Plt Count 365 MPV 10.9 H Neut % (Auto) 44.1 Lymph % (Auto) 41.5 [place] % (Auto) 10.9 Eos % (Auto) 3.1 Baso % (Auto) 0.4 Lymph # (Auto) 1.98 [place] # (Auto) 0.52 Eos # (Auto) 0.15 Baso # (Auto) 0.02 Absolute Neutrophils 2.10 Sodium 138 Potassium 3.6 Chloride 106 Carbon Dioxide 25 Anion Gap 7.0 L BUN 30 H Creatinine 0.5 L GFR Calculation 97 Glucose 79 Calcium 9.2 Total Bilirubin 0.6 AST 33 H ALT 41 H Alkaline Phosphatase 41 Total Protein 4.9 L Albumin 2.8 L Globulin 2.1 L Albumin/Globulin Ratio 1.3 Discharge Plan Patient/Caregiver Discharge Instructions Activity: increase activity as tolerated Diet: Regular Diet Prescriptions: New amlodipine 10 mg Tablet 10 mg PO DAILY Qty: 30 RF: 0 benzonatate 100 mg Capsule 200 mg PO TIDP PRN (Reason: Cough) Qty: 30 RF: 0 nystatin 100,000 unit/mL Suspension 500,000 units SSW QID 10 Days Qty: 200 RF: 0 Continued evening primrose oil 500 mg capsule 1,000 mg PO QHS RF: 0 aspirin 81 mg tablet,delayed release (DR/EC) 81 mg PO QHS RF: 0 syringe with needle [BD Luer-Jose Syringe] 3 mL 25 gauge x 1" syringe See Rx Instructions .ROUTE .COMPLEX Qty: 100 RF: 0 Depo-Estradiol 5 mg/mL oil 5 mg IM Q4W Qty: 5 RF: 3 clopidogrel [Plavix] 75 mg tablet 75 mg PO QDAY Qty: 90 RF: 1 losartan 50 mg tablet 50 mg PO QDAY Qty: 90 RF: 1 fenofibrate 54 mg tablet 54 mg PO QDAY Qty: 90 RF: 1 fluticasone propionate [Flonase Allergy Relief] 50 mcg/actuation spray,suspension 1 spray INTRANASAL QDAY Qty: 15.8 RF: 0 vitamin E (dl, acetate) 1,000 unit capsule 1,000 unit PO QHS RF: 0 multivitamin tablet 1 tab PO QHS RF: 0 cholecalciferol (vitamin D3) 50 mcg (2,000 unit) capsule 50 mcg PO QDAY Qty: 90 RF: 3 mecobalamin (vitamin B12) 1,000 mcg tablet,chewable 1,000 mcg PO QDAY Qty: 90 RF: 3 magnesium 250 mg tablet 500 mg PO QHS RF: 0 Fish Oil 900-1,400 mg capsule,delayed release(DR/EC) 1 cap PO BID RF: 0 cetirizine [Zyrtec] 10 mg Tablet 10 mg PO QDAY RF: 0 Follow Up Plan Follow up with: Armando Odonnell DO [Primary Care Provider] - Patient Disposition: Xfer SNF Prognosis: Fair Rehab Potential: Good I certify that the patient requires SNF services: Yes Overall status at discharge: patient is progressing back to baseline Discharge Orders: Discharge Order (Routine); Ordered 08/03/21 Ordered By: Be BANDA VTE Deep Vein Thrombosis/Pulmonary Embolism Present on Admission: No
[2021-08-03] MEDS: FLUTICASONE PROPIONATE SPRAY.NAS NS SCH (12:32)
== END 2021-08-03 13:15 | DRG 177 ==
LOC: ED 12:33 → ICU 16:17 → UNDODISIN 07-24 20:33 → MEDSUR 07-30 11:21
PROVIDERS: ADMIT Internal Medicine; ATTEND Internal Medicine

== ENCOUNTER 2022-02-06 11:12 | Inpatient (IN) ==
--- NOTE | 2022-02-06 11:17 | Emergency Department Note ---
Weakness HPI General Chief complaint: Weakness Stated complaint: weakness Time Seen by Provider: 02/06/22 11:14 Mode of arrival: wheelchair History of Present Illness HPI Narrative: 71-year-old female with recent diagnosis of COPD and CAD, CVA on Plavix presents to ER for the third time in the last week for weakness, swallowing difficulties, shortness of breath, and failure to thrive. Patient had an extended ICU admission in July 2021 for COVID pneumonia. Since then has been complaining of increased weakness, unintentional weight loss of greater than 40 pounds, shortness of breath, difficulty swallowing, frequent falls lately. Denies fevers/chills/sweats. Denies nausea or vomiting. Denies abdominal pain. Having regular bowel movements. She has seen pulmonology and has a notable DLCO of 39%, FEV1 65% of predicted, and forced vital capacity 69% of predicted. She had a swallow evaluation on 12/21/2021 that showed no aspiration, or penetrating event. I spoke with her son, Triston, on the phone and he notes "slurry voice and mobility." Having issues with choking over the week with weak cough reflex. Has neighbor that helps her at home, but she is requiring increasing caregiving. They are waiting for home health to come in, which is scheduled for this week. Related Data Home Medications Medication Instructions Recorded Confirmed multivitamin 1 tab PO QHS 08/09/17 02/06/22 vitamin E (dl, acetate) 450 mg 1,000 unit PO QHS 08/09/17 02/06/22 (1,000 unit) capsule aspirin 81 mg tablet,delayed 81 mg PO QHS 10/05/20 02/06/22 release evening primrose oil 500 mg capsule 1,000 mg PO QHS cap 10/05/20 02/06/22 magnesium 250 mg tablet 500 mg PO QHS tab 07/19/21 02/06/22 omega 5-inp-xgh-fish oil 900 1 cap PO BID cap 07/19/21 02/06/22 mg-1,400 mg capsule,delayed release (Fish Oil) calcium carb-ergocalciferol (vit 1 tab PO QDAY 02/06/22 02/06/22 D2) 600 mg calcium-200 unit tablet cetirizine 10 mg capsule (Zyrtec) 10 mg PO QDAY 02/06/22 02/06/22 coQ10 (ubiquinol) 100 mg capsule 100 mg PO 02/06/22 Previous Rx's Medication Instructions Recorded fluticasone propionate 50 1 spray INTRANASAL QDAY #15.8 ml 10/04/20 mcg/actuation nasal spray,suspension (Flonase Allergy Relief) cholecalciferol (vitamin D3) 50 50 mcg PO QDAY #90 cap 05/04/21 mcg (2,000 unit) capsule mecobalamin (vitamin B12) 1,000 1,000 mcg PO QDAY #90 tab 05/04/21 mcg chewable tablet fenofibrate 54 mg tablet 54 mg PO QDAY #90 tab 07/21/21 metoclopramide HCl 5 mg tablet 5 mg PO QAC #30 tab 11/23/21 clopidogrel 75 mg tablet (Plavix) 75 mg PO QDAY #90 tab 11/28/21 losartan 50 mg tablet 50 mg PO QDAY #100 tab 01/09/22 estradiol cypionate 5 mg/mL 5 mg IM Q4W #5 ml 01/30/22 intramuscular oil (Depo-Estradiol) albuterol sulfate 2.5 mg/0.5 mL 5 mg INHALATION QID PRN #30 ea 01/31/22 solution for nebulization nebulizer and compressor #1 ea 01/31/22 Allergies Allergy/AdvReac Type Severity Reaction Status Date / Time red dye Allergy Mild Hives Verified 02/06/22 11:17 clavulanic acid AdvReac Intermediate Diarrhea, Verified 02/06/22 11:17 [From Augmentin] severe pain gabapentin AdvReac Intermediate Dizziness, Verified 02/06/22 11:17 lightheaded hydromorphone [From Dilaudid] AdvReac Intermediate Fever, Verified 02/06/22 11:17 seizure like activity Nortriptyline AdvReac Intermediate Hair loss Verified 02/06/22 11:17 Ykoypie-QEE-MhW Reductase AdvReac Intermediate Diarrhea, Verified 02/06/22 11:17 Inhibitor Vision [Utmdsvs-Oxf-Ebw Reductase changes Inhibitor] MERT Inhibitors AdvReac Mild Diarrhea Verified 02/06/22 11:17 amlodipine AdvReac Mild Diarrhea Verified 02/06/22 11:17 Amoxicillin [From Augmentin] AdvReac Mild Diarrhea, Verified 02/06/22 11:17 severe pain rosuvastatin AdvReac Mild muscle Verified 02/06/22 11:17 cramps, weakness simvastatin AdvReac Mild Diarrhea Verified 02/06/22 11:17 Review of Systems ROS ROS Narrative: Narrative: All systems ED: reviewed and negative except as stated. [facility] Narrative Patient History Narrative: Narrative: Medical/Surgical/Family History All Active Problems Aspiration pneumonia (Acute) Dyspnea (Acute) COPD (chronic obstructive pulmonary disease) with acute bronchitis (Acute) COVID-19 long hauler (Acute) Adult failure to thrive (Acute) Failure to thrive in adult (Acute) Depression (Acute) Long COVID (Acute) Acute hypoxemic respiratory failure due to COVID-19 (Acute) Dysphagia (Acute) Pneumonia due to COVID-19 virus (Acute) Subthalamic lacunar stroke (Acute) Burn (Acute) Dizziness (Acute) Medicare annual wellness visit, initial (Acute) Insomnia (Acute) TIA (transient ischemic attack) (Acute) Choreoathetoid limb movements (Acute) NSTEMI (non-ST elevated myocardial infarction) (Acute) CAD (coronary artery disease) (Acute) Peripheral neuropathy (Chronic) Encounter for Medicare annual wellness exam (Chronic) Tobacco abuse (Chronic) Breast cyst (Chronic ~1994) Bilateral carotid bruits (Chronic) Atherosclerosis (Chronic) Allergic rhinitis (Chronic) HPV (human papilloma virus) infection (Chronic ~2004) Hyperlipidemia (Chronic ~2009) Hypertension, essential (Chronic ~1995) Anxiety (Chronic ~1985) Medical History Allergic rhinitis Anxiety (~1985) Atherosclerosis both carotid arteries Bilateral carotid bruits Breast cyst (~1994) Burn Depression Encounter for Medicare annual wellness exam Failure to thrive in adult HPV (human papilloma virus) infection (~2004) Hyperlipidemia (~2009) Hypertension, essential (~1995) Long COVID Medicare annual wellness visit, initial Tobacco abuse Surgical History H/O colonoscopy 06/06 Dr. Sharma H/O: hysterectomy 1985 History of cataract surgery 2014 History of surgery 2005 Cervical lesion Hx of tonsillectomy 1960 Family History Father Arthritis Bile duct cancer Mother Dementia Hypertension, essential Migraine Grandmother Seizures Paternal Social History Smoking Status: Current every day smoker Alcohol Intake Frequency: a few times a month Substance Use: does not use Exam Narrative Narrative: General: AOx3, very weak and cachectic appearing. Pleasant and conversant. HEENT: PERRL, EOMI, normocephalic. Dry mucous membranes. Normal facies and normal dentition. Chest: Symmetric, no pain to palpation Respiratory: Lungs clear to auscultation bilaterally. No respiratory distress. Unlabored breathing. Has difficulty clearing her secretions with weak cough reflex. Heart: Regular rate and rhythm, no murmurs/clicks/rubs. Abdomen: Non-tender, Non distended, normal bowel tones. No organomegaly. Extremities: Warm and well perfused. No edema. DP 2+ bilaterally. No venous stasis. Neuro: No focal deficits. Cranial nerves II-XII grossly normal. Skin: Warm dry, no rashes or lesions, no cyanosis. Psych: Normal mood and affect Heme/Lymph: Multiple bruising all along her back and arms. She reports that this is from sitting against hard surfaces. Course Course Course Narrative: 71-year-old female presents for cough, increasing weakness, and frequent choking with aspiration Reevaluation(s) Reevaluation #1: Obtain basic labs, chest x-ray, TSH Reevaluation #2: Leukocytosis 14,200, TSH within normal limits. Chest x-ray shows a probable developing pneumonia in the right mid and lower lung--> give 1 g IV ceftriaxone and 500 mg IV metronidazole for suspected aspiration pneumonia Potassium is 2.8, give 40 mEq p.o. potassium Given the patient's probable chronic aspiration with developing pneumonia, and electrolyte disturbance I feel that she is appropriate for admission. Curb 65 score is 2. I have reached out to the hospitalist for admission. Vital Signs Vital signs: Vital Signs Temperature 97.8 F 02/06/22 11:13 Pulse Rate 112 H 02/06/22 11:13 Respiratory Rate 16 02/06/22 11:13 Blood Pressure 149/99 02/06/22 11:13 Pulse Oximetry (%) 98 02/06/22 11:13 Temperature 97.8 F 02/06/22 11:13 Pulse Rate 100 H 02/06/22 14:16 Respiratory Rate 16 02/06/22 11:44 Blood Pressure 155/94 02/06/22 14:16 Pulse Oximetry (%) 94 02/06/22 14:16 MDM MDM Narrative Medical decision making narrative: Aspiration pneumonia Hypokalemia Malnourished Weakness Patient has a very poor cough reflex observed here in the ER today. I think she is likely aspirating and now has developed a right middle/lower lobe pneumonia. Patient does have a leukocytosis of 14,700. She has been given IV ceftriaxone and metronidazole. She meets criteria for admission with a curb 65 score of 2. She is comfortable with admission. I spoke with the hospitalist who accepted the patient for admission. Lab Data Result diagrams: 02/06/22 11:30 02/06/22 11:30 Labs: Lab Results 02/06/22 02/06/22 02/06/22 Range/Units 11:30 11:30 12:54 WBC 14.7 H (4.5-11.0) K/mcL RBC 4.63 (3.59-5.38) M/mcL Hgb 14.0 (11.2-15.7) g/dL Hct 44.0 (34.1-44.9) % MCV 95.0 (80.0-100.0) fL MCH 30.2 (26.0-34.0) pg MCHC 31.8 (31.0-36.0) g/dL RDW 13.4 (11.5-14.5) % Plt Count 346 (140-440) K/mcL MPV 10.9 H (7.4-10.4) fL Neut % (Auto) 89.5 H (38.0-78.0) % Lymph % (Auto) 7.1 L (15.5-49.0) % [place] % (Auto) 3.0 (1.0-12.0) % Eos % (Auto) 0.1 (0.0-7.0) % Baso % (Auto) 0.3 (0.0-2.0) % Lymph # (Auto) 1.05 L (1.50-4.80) K/mcL [place] # (Auto) 0.44 (0.10-0.90) K/mcL Eos # (Auto) 0.01 (0.00-0.70) K/mcL Baso # (Auto) 0.04 (0.00-0.30) K/mcL Absolute Neutrophils 13.18 H (1.80-8.00) K/mcL Sodium 142 (133-145) mmol/L Potassium 2.8 L* (3.3-5.1) mmol/L Chloride 100 (96-108) mmol/L Carbon Dioxide 29 (22-30) mmol/L Anion Gap 13.0 (8.0-16.0) BUN 25 H (8-23) mg/dL Creatinine 0.6 (0.6-1.1) mg/dL GFR Calculation 91 Glucose 104 (70-105) mg/dL Calcium 10.8 H (8.6-10.4) mg/dL Total Bilirubin 0.4 (0.1-1.0) mg/dL AST 22 (<32) U/L ALT 21 (<40) U/L Alkaline Phosphatase 63 (39-117) U/L Total Protein 6.9 (5.9-8.4) gm/dL Albumin 4.6 (3.2-5.2) gm/dL Globulin 2.3 (2.2-3.7) gm/dL Albumin/Globulin Ratio 2.0 (1.0-2.3) TSH 0.50 (0.27-5.01) uIU/mL Urine Color Yellow Urine Appearance Hazy A (Clear) Urine pH 7.0 (5.0-9.0) Ur Specific [place] 1.009 (1.000-1.035) Urine Protein Negative (Negative) mg/dL Urine Glucose (UA) Negative (Negative) mg/dL Urine Ketones 5 A (Negative) mg/dL Urine Occult Blood Negative (Negative) mg/dL Urine Nitrate Negative (Negative) Urine Bilirubin Negative (Negative) mg/dL Urine Urobilinogen Negative mg/dL Ur Leukocyte Esterase Negative (Negative) /uL Urine RBC < 1 (0-3) /hpf Urine WBC 0 (0-4) /hpf Ur Squamous Epith Cells 2 (0-4) /hpf Urine Bacteria None (0) /hpf Hyaline Casts 11 H (0-2) /lph Urine Mucus Mod A (None) /hpf Ur Culture Indicated? No ED POC Tests ED POC Tests: NIALL - SARS Antigen Negative Discharge Plan Patient/Caregiver Discharge Instructions Pt seen by [employer] DIRECTOR/PA only: Yes Clinical Impression: Aspiration pneumonia Instructions: Aspiration Pneumonia (DC), Aspiration Precautions (ED) Activity Restrictions/Additional Instructions: You were seen and evaluated for increasing weakness and cough with difficulty clearing secretions. You were found to have a probable developing right-sided pneumonia, which I think is likely a result of difficulty clearing secretions and aspiration. You are being placed on an antibiotic for 10 days. Clinical social work has followed up to assure that you will be receiving adequate home health therapies. It is very important that you work thoroughly with your speech therapist to improve secretion clearance. Please follow-up with Dr. Odonnell as early as possible for a recheck. If your symptoms do not improve with the antibiotic and you have worsening signs of infection such as fever greater than 101 Fahrenheit, increasing shortness of breath, or increasing weak ness then please return the emergency room for reevaluation. Patient Disposition: Xfer As Inpt ([facility]) Condition: Fair Follow up with: Armando Odonnell DO [Primary Care Provider] - Prescriptions: No Action evening primrose oil 500 mg capsule 1,000 mg PO QHS 0RF Rx Instructions: give with meal/snack aspirin 81 mg tablet,delayed release (DR/EC) 81 mg PO QHS 0RF fenofibrate 54 mg tablet 54 mg PO QDAY Qty: 90 1RF Label Comments: pt takes at HS metoclopramide HCl 5 mg tablet 5 mg PO QAC Qty: 30 4RF Rx Instructions: administer 30 minutes before meals clopidogrel [Plavix] 75 mg tablet 75 mg PO QDAY Qty: 90 1RF Label Comments: pt takes at HS losartan 50 mg tablet 50 mg PO QDAY Qty: 100 1RF Label Comments: pt takes at HS Depo-Estradiol 5 mg/mL oil 5 mg IM Q4W Qty: 5 3RF fluticasone propionate [Flonase Allergy Relief] 50 mcg/actuation spray,suspension 1 spray INTRANASAL QDAY Qty: 15.8 0RF Label Comments: pt takes at HS Rx Instructions: administer into each nostril vitamin E (dl, acetate) 1,000 unit capsule 1,000 unit PO QHS 0RF multivitamin tablet 1 tab PO QHS 0RF cholecalciferol (vitamin D3) 50 mcg (2,000 unit) capsule 50 mcg PO QDAY Qty: 90 3RF Label Comments: pt takes at night mecobalamin (vitamin B12) 1,000 mcg tablet,chewable 1,000 mcg PO QDAY Qty: 90 3RF magnesium 250 mg tablet 500 mg PO QHS 0RF Fish Oil 900-1,400 mg capsule,delayed release(DR/EC) 1 cap PO BID 0RF albuterol sulfate 2.5 mg/0.5 mL solution for nebulization 5 mg inhalation QID PRN (Reason: shortness of breath or wheezing) Qty: 30 0RF (DME) nebulizer and compressor Device See Rx Instructions .Route Qty: 1 0RF Rx Instructions: As directed Calcium + Vitamin D 600 mg calcium- 200 unit Tablet 1 tab PO QDAY 0RF Zyrtec 10 mg Capsule 10 mg PO QDAY 0RF coQ10 (ubiquinol) 100 mg Capsule 100 mg PO 0RF
[2022-02-06] MEDS ORDERED: 0.9 % SODIUM CHLORIDE 1,000 ML IV ONE (11:30)
--- NOTE | 2022-02-06 12:00 | XRay Report ---
CLINICAL INFORMATION: Cough COMPARISON: 01/31/2022 TECHNIQUE: PA and Lateral views FINDINGS: The heart size, mediastinum and pulmonary vessels are unremarkable. Possible vague infiltrate developing in the right mid and lower lung field. 9 mm nodular density in the left upper lobe region which is likely a bone island in the anterior left second rib. Suggest rib films.. There are no effusions. The bones and soft tissues are otherwise, within normal limits. IMPRESSION: Suspect vague developing infiltrates in the right mid and lower lung. 9 mm left upper lobe nodule is likely a bone island in the anterior left second rib. Suggest left rib films Interpreted and Authenticated by: Armando Cervantes 02/06/22
[2022-02-06 12:39] LABS: Basophils # (Auto) 0.04 K/mcL (0.00-0.30); Basophils % (Auto) 0.3 % (0.0-2.0); Eosinophils # (Auto) 0.01 K/mcL (0.00-0.70); Eosinophils % (Auto) 0.1 % (0.0-7.0); Lymphocytes # (Auto) 1.05 K/mcL (1.50-4.80); Lymphocytes % (Auto) 7.1 % (15.5-49.0); Mean Corpuscular HGB Conc 31.8 g/dL (31.0-36.0); Mean Platelet Volume 10.9 fL (7.4-10.4); Monocytes # (Auto) 0.44 K/mcL (0.10-0.90); Neutrophils % (Auto) 89.5 % (38.0-78.0); Platelet Count 346 K/mcL (140-440); RBC 4.63 M/mcL (3.59-5.38); Red Cell Distribution Width 13.4 % (11.5-14.5); WBC 14.7 K/mcL (4.5-11.0)
[2022-02-06] MEDS ORDERED: AMOXICILLIN/POTASSIUM CLAV 875 MG TABLET PO ONE (13:01)
[2022-02-06 13:09] LABS: ALT/SGPT 21 U/L (<40); AST/SGOT 22 U/L (<32); Albumin 4.6 gm/dL (3.2-5.2); Alkaline Phosphatase 63 U/L (39-117); Bilirubin,Total 0.4 mg/dL (0.1-1.0); Blood Urea Nitrogen 25 mg/dL (8-23); Calcium 10.8 mg/dL (8.6-10.4); Carbon Dioxide 29 mmol/L (22-30); Chloride 100 mmol/L (96-108); Globulin 2.3 gm/dL (2.2-3.7); Glomerular Filtration Rate 91; Glucose 104 mg/dL (70-105)
[2022-02-06] MEDS ORDERED: cefTRIAXone 1 GM VIAL IV ONE (13:20)
[2022-02-06] MEDS ORDERED: metroNIDAZOLE 500 MG in PREMIX 1 BAG IV ONE (13:22)
[2022-02-06] MEDS ORDERED: POTASSIUM CHLORIDE 20 MEQ TABLET PO ONE (13:25)
[2022-02-06 13:53] LABS: Appearance,Urine HAZY (Clear); Bilirubin,Urine Negative (Negative); Color,Urine YELLOW; Culture Indicated,Urine No; Glucose,Urine (UA) Negative (Negative); Ketones,Urine 5 mg/dL (Negative); Leukocyte Esterase,Urine Negative /uL (Negative); Mucus,Urine MOD /hpf; Nitrate,Urine Negative (Negative); Protein,Urine Negative (Negative); Specific Gravity,Urine 1.009 (1.000-1.035); Urine Blood Negative (Negative); Urine Hyaline Cast 11 /lph (0-2); Urine RBC < 1 /hpf (0-3); Urine Squamous Epithelial Cell 2 /hpf (0-4); Urine WBC 0 /hpf (0-4); Urobilinogen,Urine Negative
--- NOTE | 2022-02-06 15:23 | Internal Med History&Physical ---
HPI History of Present Illness Patient information: Note initiated : 02/06/22 at 3:20 pm Service Date, if different from initiated Date: [] Patient: Loni Dasilva a 71 y/o F admitted on for weakness. Chief Complaint: [failure to thrive, aspiration pneumonia] Chief complaint: failure to thrive, aspiration pneumoni History of present illness: Ms. Dasilva is a 71 year old F multiple medical comorbidities including stroke, CAD, essential hypertension, mixed dyslipidemia, COVID-pneumonia, COPD, presenting with 6 months history of progressive general body weakness, worsening appetite, shortness of breath, and recently found hypokalemia. She was hospitalized in our facility and being taken care of by myself back in July 2021 for COVID-pneumonia. She was being discharged to longterm before eventually being discharged home. She was having a routine follow-up by her PCP today which after knowing her symptoms aforementioned, recommend her to go to our ER for further evaluations. He is complaining of worsening shortness of breath, ongoing dysphagia, poor appetite, 40 pound weight loss since July 2021, and overall general body weakness. Labs significant for leukocytosis with WBC 14.7. Serum potassium level 2.8. Chest x-ray showing suspected vague developing infiltrate in the right middle and lower lungs concerning for aspiration pneumonia. Admission request for aspiration pneumonia and adult fail ure to thrive. Constitutional Constitutional: Present fatigue and weakness; Absent chills, excessive sweating or fever(s) EENT Eyes: Absent blurry vision, change in vision, loss of vision or other visual disturbances Ears: Absent decreased hearing or tinnitus Nose, mouth and throat: Absent abnormal hearing, dry mouth, headache(s), nasal congestion or sore throat Cardiovascular Cardiovascular: Absent chest pain, chest pain at rest, edema, irregular heart rhythm or palpatations Respiratory Respiratory: Present cough and dyspnea; Absent wheezing Gastrointestinal Gastrointestinal: Present dysphagia; Absent abdominal pain, constipation, diarrhea, nausea or vomiting Additional comments: decrease appetite Musculoskeletal Musculoskeletal: Absent back pain, deformity, limited range of motion, muscle cramps, muscle weakness or numbness Integumentary Integumentary: Absent lesions, rash or wounds Neurological Neurological: Absent focal weakness, headache(s) or numbness Psychiatric Psychiatric: Absent anxiety, depression or hallucinations PFSH PFSH All Active Problems (Updated 02/06/22 @ 15:32 by Be Lopez MD) History of stroke (Acute) Hypokalemia (Acute) Aspiration pneumonia (Acute) Dyspnea (Acute) COPD (chronic obstructive pulmonary disease) with acute bronchitis (Acute) COVID-19 long hauler (Acute) Adult failure to thrive (Acute) Failure to thrive in adult (Acute) Depression (Acute) Long COVID (Acute) Acute hypoxemic respiratory failure due to COVID-19 (Acute) Dysphagia (Acute) Pneumonia due to COVID-19 virus (Acute) Subthalamic lacunar stroke (Acute) Burn (Acute) Dizziness (Acute) Medicare annual wellness visit, initial (Acute) Insomnia (Acute) TIA (transient ischemic attack) (Acute) Choreoathetoid limb movements (Acute) NSTEMI (non-ST elevated myocardial infarction) (Acute) CAD (coronary artery disease) (Acute) Peripheral neuropathy (Chronic) Encounter for Medicare annual wellness exam (Chronic) Tobacco abuse (Chronic) Breast cyst (Chronic ~1994) Bilateral carotid bruits (Chronic) Atherosclerosis (Chronic) Allergic rhinitis (Chronic) HPV (human papilloma virus) infection (Chronic ~2004) Hyperlipidemia (Chronic ~2009) Hypertension, essential (Chronic ~1995) Anxiety (Chronic ~1985) Medical History Allergic rhinitis Anxiety (~1985) Atherosclerosis both carotid arteries Bilateral carotid bruits Breast cyst (~1994) Burn Depression Encounter for Medicare annual wellness exam Failure to thrive in adult HPV (human papilloma virus) infection (~2004) Hyperlipidemia (~2009) Hypertension, essential (~1995) Long COVID Medicare annual wellness visit, initial Tobacco abuse Surgical History H/O colonoscopy 06/06 Dr. Sharma H/O: hysterectomy 1985 History of cataract surgery 2014 History of surgery 2004 Cervical lesion Hx of tonsillectomy 1960 Family History Father Arthritis Bile duct cancer Mother Dementia Hypertension, essential Migraine Grandmother Seizures Paternal Social History marital status: other: Children-2 alcohol intake frequency: a few times a month substance use type: does not use MEDS/ALLERGIES Home Medications and Allergies Home Medications Medication Instructions Recorded Confirmed Type multivitamin 1 tab PO QHS 08/09/17 02/06/22 History vitamin E (dl, acetate) 450 mg 1,000 unit PO QHS 08/09/17 02/06/22 History (1,000 unit) capsule fluticasone propionate 50 1 spray INTRANASAL QDAY #15.8 ml 10/04/20 02/06/22 Rx mcg/actuation nasal spray,suspension (Flonase Allergy Relief) aspirin 81 mg tablet,delayed 81 mg PO QHS 10/05/20 02/06/22 History release evening primrose oil 500 mg capsule 1,000 mg PO QHS cap 10/05/20 02/06/22 History cholecalciferol (vitamin D3) 50 50 mcg PO QDAY #90 cap 05/04/21 02/06/22 Rx mcg (2,000 unit) capsule mecobalamin (vitamin B12) 1,000 1,000 mcg PO QDAY #90 tab 05/04/21 02/06/22 Rx mcg chewable tablet magnesium 250 mg tablet 500 mg PO QHS tab 07/19/21 02/06/22 History omega 0-jnm-[id number]-fish oil 900 1 cap PO BID cap 07/19/21 02/06/22 History mg-1,400 mg capsule,delayed release (Fish Oil) fenofibrate 54 mg tablet 54 mg PO QDAY #90 tab 07/21/21 02/06/22 Rx metoclopramide HCl 5 mg tablet 5 mg PO QAC #30 tab 11/23/21 02/06/22 Rx clopidogrel 75 mg tablet (Plavix) 75 mg PO QDAY #90 tab 11/28/21 02/06/22 Rx losartan 50 mg tablet 50 mg PO QDAY #100 tab 01/09/22 02/06/22 Rx estradiol cypionate 5 mg/mL 5 mg IM Q4W #5 ml 01/30/22 02/06/22 Rx intramuscular oil (Depo-Estradiol) albuterol sulfate 2.5 mg/0.5 mL 5 mg INHALATION QID PRN #30 ea 01/31/22 02/06/22 Rx solution for nebulization nebulizer and compressor #1 ea 01/31/22 02/06/22 Rx calcium carb-ergocalciferol (vit 1 tab PO QDAY 02/06/22 02/06/22 History D2) 600 mg calcium-200 unit tablet cetirizine 10 mg capsule (Zyrtec) 10 mg PO QDAY 02/06/22 02/06/22 History coQ10 (ubiquinol) 100 mg capsule 100 mg PO 02/06/22 History Allergies Allergy/AdvReac Type Severity Reaction Status Date / Time red dye Allergy Mild Hives Verified 02/06/22 11:17 clavulanic acid AdvReac Intermediate Diarrhea, Verified 02/06/22 11:17 [From Augmentin] severe pain gabapentin AdvReac Intermediate Dizziness, Verified 02/06/22 11:17 lightheaded hydromorphone [From Dilaudid] AdvReac Intermediate Fever, Verified 02/06/22 11:17 seizure like activity Nortriptyline AdvReac Intermediate Hair loss Verified 02/06/22 11:17 [id number] Reductase AdvReac Intermediate Diarrhea, Verified 02/06/22 11:17 Inhibitor Vision [[id number] Reductase changes Inhibitor] MERT Inhibitors AdvReac Mild Diarrhea Verified 02/06/22 11:17 amlodipine AdvReac Mild Diarrhea Verified 02/06/22 11:17 Amoxicillin [From Augmentin] AdvReac Mild Diarrhea, Verified 02/06/22 11:17 severe pain rosuvastatin AdvReac Mild muscle Verified 02/06/22 11:17 cramps, weakness simvastatin AdvReac Mild Diarrhea Verified 02/06/22 11:17 EXAM Constitutional Vitals: Temp Pulse Resp BP Pulse Ox 36.6 C 100 H 16 155/94 94 02/06/22 11:13 02/06/22 14:16 02/06/22 11:44 02/06/22 14:16 02/06/22 14:16 General appearance: cooperative, disheveled, no acute distress and thin Head Head exam: Present atraumatic and normocephalic Eye Eye exam: Present EOMI and PERRL ENT ENT exam: Present mucous membranes moist, normal exam and normal external ear exam Neck Neck exam: Present normal inspection; Absent lymphadenopathy, tenderness or thyromegaly Respiratory Respiratory exam: Present decreased breath sounds and rhonchi; Absent accessory muscle use, respiratory distress or wheezes Cardiovascular Cardiovascular exam: Present normal rate and rhythm; Absent JVD GI/Abdominal GI/Abdominal exam: Present normal bowel sounds and soft; Absent organomegaly or tenderness Extremities Exam Extremities exam: Present full ROM, normal capillary refill and normal inspection; Absent tenderness Neurological Exam Neurological exam: Present alert, CN II-XII intact and oriented X3; Absent motor sensory deficit Psychiatric Psychiatric exam: Present normal affect and normal mood; Absent anxious or depressed Skin Skin exam: Present dry and intact DATA Data Completed and Pending Labs: Labs from last 24 hours 02/06/22 02/06/22 02/06/22 12:54 11:30 11:30 WBC 14.7 H RBC 4.63 Hgb 14.0 Hct 44.0 MCV 95.0 MCH 30.2 MCHC 31.8 RDW 13.4 Plt Count 346 MPV 10.9 H Neut % (Auto) 89.5 H Lymph % (Auto) 7.1 L [place] % (Auto) 3.0 Eos % (Auto) 0.1 Baso % (Auto) 0.3 Lymph # (Auto) 1.05 L [place] # (Auto) 0.44 Eos # (Auto) 0.01 Baso # (Auto) 0.04 Absolute Neutrophils 13.18 H Sodium 142 Potassium 2.8 L* Chloride 100 Carbon Dioxide 29 Anion Gap 13.0 BUN 25 H Creatinine 0.6 GFR Calculation 91 Glucose 104 Calcium 10.8 H Total Bilirubin 0.4 AST 22 ALT 21 Alkaline Phosphatase 63 Total Protein 6.9 Albumin 4.6 Globulin 2.3 Albumin/Globulin Ratio 2.0 TSH 0.50 Urine Color Yellow Urine Appearance Hazy A Urine pH 7.0 Ur Specific [place] 1.009 Urine Protein Negative Urine Glucose (UA) Negative Urine Ketones 5 A Urine Occult Blood Negative Urine Nitrate Negative Urine Bilirubin Negative Urine Urobilinogen Negative Ur Leukocyte Esterase Negative Urine RBC < 1 Urine WBC 0 Ur Squamous Epith Cells 2 Urine Bacteria None Hyaline Casts 11 H Urine Mucus Mod A Ur Culture Indicated? No A/P Assessment and plan (1) Aspiration pneumonia: Status: Acute (2) Hyperlipidemia: Status: Chronic Qualifiers: Hyperlipidemia type: pure hypercholesterolemia Qualified Code(s): E78.00 - Pure hypercholesterolemia, unspecified; E78.00 - Pure hypercholesterolemia, unspecified; E78.00 - Pure hypercholesterolemia, unspecified; E78.0 - Pure hypercholesterolemia (3) Hypertension, essential: Status: Chronic (4) CAD (coronary artery disease): Status: Acute Qualifiers: Coronary Disease-Associated Artery/Lesion type: unspecified vessel or lesion type [place] vs. transplanted heart: [place] heart Associated angina: with unspecified angina Qualified Code(s): I25.119 - Atherosclerotic heart disease of [place] coronary artery with unspecified angina pectoris (5) Failure to thrive in adult: Status: Acute (6) Long COVID: Status: Acute (7) COPD (chronic obstructive pulmonary disease) with acute bronchitis: Status: Acute (8) Hypokalemia: Status: Acute (9) History of stroke: Status: Acute Narrative A/P Narrative: Assessment and Plans: 1. Aspiration pneumonia: Inpatient med surg Supplemental oxygen therapy titrate to achieve spo2>=88%, currently on room air CoVID and influenza screening Serial lactic acid Procalcitonin Blood culture Sputum culture cbc w/ auto diff in the morning Rocephin Zithromax Robitussin DM PRN cough Tylenol PRN fever DuoNEB NEB PRN wheezing 2. Hypokalemia: Potassium replacement IV/PO CMP in the morning to trend serum potassium level, repeat replacement as needed Also check serum Mg level and replace as needed 3. Adult failure to thrive: parts and service manager and family welfare social work professor clarify goal of care Dietitian and speech therapy evaluation 4. h/o COPD, stable: Supplemental oxygen therapy titrate to achieve spo2>=88%, currently on room air Continue bronchodilators from home regimen 5. Mixed dyslipidemia: Fenofibrate 6. Essential HTN: Continue oral antihypertensives from home regimen 7. h/o CAD: Aspirin Plavix Fenofibrate 8. h/o stroke: Aspirin Fenofibrate 9. Dysphagia: Speech therapy Dietitian referral GI ppx: not currently indicated DVT ppx: SCDs Code status: DNI DNR Prognosis: guarded Disposition: inpatient med surg; PT OT SLT Time Spent With Patient Time: Total time spent is greater than 50% in coordination of care (as documented) at patient's floor/unit and/or counseling patient: Total time spent with greater than 50% in coordination of care (as documented) at patient's floor/unit and/or counseling patient:: 35 - 50 minutes
[2022-02-06] MEDS ORDERED: ALBUTEROL SULFATE 2.5 MG/3 ML NEBULIZER NEB PRN (17:16)
[2022-02-06] MEDS ORDERED: ZOLPIDEM 5 MG TABLET PO PRN (17:47)
[2022-02-06] MEDS ORDERED: IPRATROPIUM/ALBUTEROL 3 ML AMPUL.NEB NEB PRN (17:47)
[2022-02-06] MEDS ORDERED: ONDANSETRON 4 MG/2 ML VIAL IV PRN (17:47)
[2022-02-06] MEDS ORDERED: cefTRIAXone 1 GM in DEXTROSE 5% IN WATER 50 ML IV SCH (17:47)
[2022-02-06] MEDS: AZITHROMYCIN 500 MG in DEXTROSE 5% IN WATER 250 ML IV SCH (19:46)
[2022-02-06] MEDS: MAGNESIUM OXIDE 400 MG TABLET PO SCH (20:37)
[2022-02-06] MEDS: FISH OIL 1,000 MG CAPSULE PO SCH (20:37)
[2022-02-06] MEDS: ACETAMINOPHEN 325 MG TABLET PO PRN (20:37)
[2022-02-06] MEDS: DOCUSATE SODIUM 100 MG CAPSULE PO SCH (20:38)
[2022-02-06] MEDS: VITAMIN E (DL,TOCOPHERYL ACET) 400 UNIT CAPSULE PO SCH (20:38)
[2022-02-06] MEDS: ASPIRIN 81 MG TAB.CHEW PO SCH (20:38)
[2022-02-06] MEDS: EVENING PRIMROSE OIL 500 MG PO SCH (20:38)
[2022-02-06] MEDS: SENNOSIDES 1 TABLET PO SCH (20:38)
[2022-02-06] MEDS: MULTIVIT,THER IRON,CA,FA & MIN 1 TABLET PO SCH (20:38)
[2022-02-06] MEDS: 0.9 % SODIUM CHLORIDE 10 ML SYRINGE IV SCH (20:39)
[2022-02-07] MEDS: 0.9 % SODIUM CHLORIDE 10 ML SYRINGE IV SCH ×3 (05:33→20:59)
[2022-02-07 07:47] LABS: Basophils # (Auto) 0.08 K/mcL (0.00-0.30); Basophils % (Auto) 0.9 % (0.0-2.0); Eosinophils # (Auto) 0.19 K/mcL (0.00-0.70); Eosinophils % (Auto) 2.1 % (0.0-7.0); Hematocrit 42.5 % (34.1-44.9); Hemoglobin 13.9 g/dL (11.2-15.7); Lymphocytes # (Auto) 3.83 K/mcL (1.50-4.80); Lymphocytes % (Auto) 41.4 % (15.5-49.0); Mean Cell Volume 93.2 fL (80.0-100.0); Mean Corpuscular HGB Conc 32.7 g/dL (31.0-36.0); Mean Platelet Volume 10.9 fL (7.4-10.4); Monocytes # (Auto) 0.86 K/mcL (0.10-0.90); Monocytes % (Auto) 9.3 % (1.0-12.0); Neutrophils % (Auto) 46.3 % (38.0-78.0); Platelet Count 376 K/mcL (140-440); RBC 4.56 M/mcL (3.59-5.38); Red Cell Distribution Width 13.2 % (11.5-14.5); WBC 9.3 K/mcL (4.5-11.0)
[2022-02-07 08:35] LABS: ALT/SGPT 19 U/L (<40); AST/SGOT 21 U/L (<32); Albumin 4.1 gm/dL (3.2-5.2); Albumin/Globulin Ratio 1.8 (1.0-2.3); Alkaline Phosphatase 53 U/L (39-117); Bilirubin,Total 0.4 mg/dL (0.1-1.0); Blood Urea Nitrogen 15 mg/dL (8-23); Calcium 9.6 mg/dL (8.6-10.4); Carbon Dioxide 28 mmol/L (22-30); Chloride 102 mmol/L (96-108); Globulin 2.3 gm/dL (2.2-3.7); Glomerular Filtration Rate 104; Glucose 85 mg/dL (70-105); Phosphorous 2.3 mg/dL (2.5-4.5)
[2022-02-07] MEDS: VITAMIN D3 25 MCG TABLET PO SCH (08:38)
[2022-02-07] MEDS: CETIRIZINE 10 MG TABLET PO SCH (08:39)
[2022-02-07] MEDS: cefTRIAXone 1 GM VIAL IV SCH (08:40)
[2022-02-07] MEDS: FENOFIBRATE 43 MG CAPSULE PO SCH (08:42)
[2022-02-07] MEDS: LOSARTAN 50 MG TABLET PO SCH (09:19)
[2022-02-07] MEDS: METOCLOPRAMIDE 10 MG TABLET PO SCH ×3 (09:35→17:40)
[2022-02-07] MEDS: FLUTICASONE PROPIONATE SPRAY.NAS NS SCH (09:36)
[2022-02-07] MEDS: COQ10 100 MG PO SCH (09:36)
[2022-02-07] MEDS: DOCUSATE SODIUM 100 MG CAPSULE PO SCH ×3 (09:36→21:10)
[2022-02-07] MEDS: CALCIUM W/VIT D3 500 MG TABLET PO SCH (09:37)
[2022-02-07] MEDS: FISH OIL 1,000 MG CAPSULE PO SCH ×2 (09:37→20:58)
[2022-02-07] MEDS: CYANOCOBALAMIN (VITAMIN B-12) 500 MCG TABLET PO SCH (09:37)
--- NOTE | 2022-02-07 11:05 | Internal Med Progress Note ---
SUBJECTIVE Subjective Patient information: Note initiated : 02/07/22 at 11:01 am Service Date, if different from initiated Date: [] Patient: Loni Dasilva a 71 y/o F admitted on 02/06/22 for weakness. Chief Complaint: [] Interval history: Ms. Dasilva is a 71 year old F multiple medical comorbidities including stroke, CAD, essential hypertension, mixed dyslipidemia, COVID-pneumonia, COPD, presenting with 6 months history of progressive general body weakness, worsening appetite, shortness of breath, and recently found hypokalemia. She was hospi talized in our facility and being taken care of by myself back in July 2021 for COVID-pneumonia. [facility]. She was having a routine follow-up by her PCP today which after knowing her symptoms aforementioned, recommend her to go to our ER for further evaluations. He is complaining of worsening shortness of breath, ongoing dysphagia, poor appetite, 40 pound weight loss since July 2021, and overall general body weakness. Labs significant for leukocytosis with WBC 14.7. Serum potassium level 2.8. Chest x-ray showing suspected vague developing infiltrate in the right middle and lower lungs concerning for aspiration pneumonia. Admission request for aspiration pneumonia and adult failure to thrive. 02/07: Still on room air. Afebrile overnight. Blood cultures no growth to date. Patient is complaining of improving degree of shortness of breath. Poor cough effort. Denies any subjective fever or chills. Patient really does not like her current dysphagia diet and would like to be evaluated by speech therapist for further diet modifications/recommendations. Pending physical therapist evaluation for further diet modifications/recommendations. Continue Rocephin and Zithromax for aspiration pneumonia. Continue potassium replacement therapy. We will work with lining caser for potential SNF placement. Constitutional Vitals: Vital Signs Temp Pulse Resp BP Pulse Ox 36.6 C 91 H 22 184/79 96 02/07/22 07:46 02/07/22 07:46 02/07/22 07:46 02/07/22 07:46 02/07/22 07:46 Period Temp Pulse Resp BP Sys/Wright Pulse Ox Last 24 Hr 36.4 C-37.1 C 89-112 14-24 136-184/63-99 92-98 Intake and Output 02/06/22 02/07/22 02/07/22 21:59 05:59 13:59 Intake Total 350 600 Output Total 200 550 Balance 150 50 Weight 43.636 kg Intake & Output: Intake & Output 02/06/22 02/07/22 02/07/22 21:59 05:59 13:59 Intake Total 350 600 Output Total 200 550 Balance 150 50 Weight 43.636 kg Intake: IV 350 Zithromax 500 mg In Dextrose 5% 250 in Water 250 ml @ 250 mls/hr IV Q24H [facility] Rx#:[id number] Flagyl 500 mg In Premix 1 Bag @ 100 100 mls/hr IV ONCE ONE Rx#: [id number] Oral 600 Output: Void Amount 200 550 Other: Meal Dinner Percent of Meal Consumed 50% Feeding Ability Independent Urine Appearance Clear Clear Urine Color Pale Bright Yellow Urine Odor Normal General appearance: cooperative, no acute distress and thin Head Head exam: Present atraumatic and normal inspection Eye Eye exam: Present normal appearance ENT ENT exam: Present mucous membranes moist, normal exam and normal external ear exam Neck Neck exam: Present normal inspection Respiratory Respiratory exam: Present decreased breath sounds Cardiovascular Cardiovascular exam: Present normal rate and rhythm GI/Abdominal GI/Abdominal exam: Present normal bowel sounds Back Exam Back exam: Present normal inspection Neurological Exam Neurological exam: Present alert and oriented X3 Skin Skin exam: Present intact and warm OBJ DATA Labs CBC & Chem 7: 02/07/22 05:56 02/07/22 05:56 Labs: Abnormal Lab Results 02/07/22 02/07/22 02/06/22 05:56 05:56 12:54 WBC MPV 10.9 H Neut % (Auto) Lymph % (Auto) Lymph # (Auto) Absolute Neutrophils Potassium 3.0 L BUN Creatinine 0.4 L Calcium Phosphorus 2.3 L Urine Appearance Hazy A Urine Ketones 5 A Hyaline Casts 11 H Urine Mucus Mod A 02/06/22 02/06/22 11:30 11:30 WBC 14.7 H MPV 10.9 H Neut % (Auto) 89.5 H Lymph % (Auto) 7.1 L Lymph # (Auto) 1.05 L Absolute Neutrophils 13.18 H Potassium 2.8 L* BUN 25 H Creatinine Calcium 10.8 H Phosphorus Urine Appearance Urine Ketones Hyaline Casts Urine Mucus Meds: Medications Acetaminophen (Acetaminophen 325 Mg Tablet) 650 mg PO Q6HP PRN; Protocol PRN Reason: Per Pain Protocol/Fever > 101 Last Admin: 02/06/22 20:37 Dose: 650 mg Documented by: Albuterol Sulfate (Albuterol Sulfate 2.5 Mg/3 Ml Nebulizer) 5 mg NEB QIDP PRN PRN Reason: Shortness Of Breath Albuterol/Ipratropium (Ipratropium/Albuterol 3 Ml Ampul.Neb) 3 ml NEB Q4HRT PRN PRN Reason: Wheezing Aspirin (Aspirin 81 Mg Tab.Chew) 81 mg PO QHS [facility] Last Admin: 02/06/22 20:38 Dose: 81 mg Documented by: Calcium/Vitamin D (Calcium W/Vit D3 500 Mg Tablet) 500 mg PO DAILY [facility] Last Admin: 02/07/22 09:37 Dose: Not Given Documented by: Ceftriaxone Sodium (Ceftriaxone 1 Gm Vial) 1 gm IV Q24H [facility] Last Admin: 02/07/22 08:40 Dose: 1 gm Documented by: Cetirizine HCl (Cetirizine 10 Mg Tablet) 10 mg PO DAILY [facility] Last Admin: 02/07/22 08:39 Dose: 10 mg Documented by: Clopidogrel Bisulfate (Clopidogrel 75 Mg Tablet) 75 mg PO QDAY [facility] Cyanocobalamin (Cyanocobalamin (Vitamin B-12) 500 Mcg Tablet) 1,000 mcg PO DAILY [facility] Last Admin: 02/07/22 09:37 Dose: Not Given Documented by: Docusate Sodium (Docusate Sodium 100 Mg Capsule) 100 mg PO BID [facility] Last Admin: 02/07/22 09:36 Dose: Not Given Documented by: Fenofibrate (Fenofibrate 43 Mg Capsule) 43 mg PO DAILY [facility] Last Admin: 02/07/22 08:42 Dose: 43 mg Documented by: Fish Oil (Fish Oil 1,000 Mg Capsule) 1,000 mg PO BID [facility] Last Admin: 02/07/22 09:37 Dose: Not Given Documented by: Fluticasone Propionate (Fluticasone Propionate [place]) 1 spray NS QDAY [facility] Last Admin: 02/07/22 09:36 Dose: Not Given Documented by: Guaifenesin (Guaifenesin/Dextromethorphan Oral [place]) 10 ml PO Q4HP PRN PRN Reason: Cough Azithromycin 500 mg/ Dextrose 250 mls @ 250 mls/hr IV Q24H [facility]; Protocol Stop: 02/08/22 18:59 Last Infusion: 02/06/22 21:00 Dose: Infused Documented by: Potassium Chloride 40 meq/ (Dextrose) 520 mls @ 130 mls/hr IV UD PRN PRN Reason: hypokalemia Iron Carb/Multivit/[place]/Folic Acid (Multivit,Ther Iron,Ca,Fa & Min 1 Tablet) 1 tab PO QHS [facility] Last Admin: 02/06/22 20:38 Dose: 1 tab Documented by: Losartan Potassium (Losartan 50 Mg Tablet) 50 mg PO QDAY [facility] Last Admin: 02/07/22 09:19 Dose: 50 mg Documented by: Magnesium Oxide (Magnesium Oxide 400 Mg Tablet) 400 mg PO QHS [facility] Last Admin: 02/06/22 20:37 Dose: 400 mg Documented by: Metoclopramide HCl (Metoclopramide 10 Mg Tablet) 5 mg PO AC [facility] Last Admin: 02/07/22 09:35 Dose: Not Given Documented by: Ondansetron HCl (Ondansetron 4 Mg/2 Ml Vial) 4 mg IV Q6HP PRN PRN Reason: Nausea And Vomiting Coq10 (Ubiquinol) (100 Mg Capsule) 1 dose PO DAILY [facility] Last Admin: 02/07/22 09:36 Dose: Not Given Documented by: Evening [place] Oil (500 Mg Capsule) 2 dose PO QHS [facility] Last Admin: 02/06/22 20:38 Dose: Not Given Documented by: Senna (Sennosides 1 Tablet) 2 tab PO HS [facility] Last Admin: 02/06/22 20:38 Dose: Not Given Documented by: Sodium Chloride (0.9 % Sodium Chloride 10 Ml Syringe) 10 ml IV Q8 [facility] Last Admin: 02/07/22 05:33 Dose: 10 ml Documented by: Vitamin D (Vitamin D3 25 Mcg Tablet) 50 mcg PO DAILY [facility] Last Admin: 02/07/22 08:38 Dose: 50 mcg Documented by: Vitamin E (Vitamin E (Dl,Tocopheryl Acet) 400 Unit Capsule) 800 unit PO QHS [facility] Last Admin: 02/06/22 20:38 Dose: 800 unit Documented by: Zolpidem Tartrate (Zolpidem 5 Mg Tablet) 5 mg PO HSP PRN PRN Reason: Insomnia A/P Assessment and plan (1) Aspiration pneumonia: Status: Acute (2) Hyperlipidemia: Status: Chronic Qualifiers: Hyperlipidemia type: pure hypercholesterolemia Qualified Code(s): E78.00 - Pure hypercholesterolemia, unspecified; E78.00 - Pure h ypercholesterolemia, unspecified; E78.00 - Pure hypercholesterolemia, unspecified; E78.0 - Pure hypercholesterolemia (3) Hypertension, essential: Status: Chronic (4) CAD (coronary artery disease): Status: Acute Qualifiers: Coronary Disease-Associated Artery/Lesion type: unspecified vessel or lesion type [place] vs. transplanted heart: [place] heart Associated angina: with unspecified angina Qualified Code(s): I25.119 - Atherosclerotic heart disease of [place] coronary artery with unspecified angina pectoris (5) Failure to thrive in adult: Status: Acute (6) Long COVID: Status: Acute (7) COPD (chronic obstructive pulmonary disease) with acute bronchitis: Status: Acute (8) Hypokalemia: Status: Acute (9) History of stroke: Status: Acute Narrative A/P Narrative: Assessment and Plans: 1. Aspiration pneumonia: Inpatient med surg Supplemental oxygen therapy titrate to achieve spo2>=88%, currently on room air CoVID and influenza screening Serial lactic acid Procalcitonin Blood culture, no growth to date Sputum culture, pending sample collection cbc w/ auto diff in the morning Rocephin Zithromax Robitussin DM PRN cough Tylenol PRN fever DuoNEB NEB PRN wheezing 2. Hypokalemia: Potassium replacement IV/PO CMP in the morning to trend serum potassium level, repeat replacement as needed Also check serum Mg level and replace as needed 3. Adult failure to thrive: fill manager and social welfare research worker clarify goal of care Dietitian and speech therapy evaluation 4. h/o COPD, stable: Supplemental oxygen therapy titrate to achieve spo2>=88%, currently on room air Continue bronchodilators from home regimen 5. Mixed dyslipidemia: Fenofibrate 6. Essential HTN: Continue oral antihypertensives from home regimen 7. h/o CAD: Aspirin Plavix Fenofibrate 8. h/o stroke: Aspirin Fenofibrate 9. Dysphagia: Speech therapy evaluation for diet recs. Dietitian referral GI ppx: not currently indicated DVT ppx: SCDs Code status: DNI DNR Prognosis: guarded Disposition: inpatient med surg; PT OT SLT Time Spent With Patient Time: Total time spent is greater than 50% in coordination of care (as documented) at patient's floor/unit and/or counseling patient: Total time spent with greater than 50% in coordination of care (as documented) at patient's floor/unit and/or counseling patient:: 35 - 50 minutes QUALITY Stroke Symptom Onset Unknown: No
[2022-02-07] MEDS: POTASSIUM CHLORIDE 40 MEQ in DEXTROSE 5% IN WATER 500 ML IV PRN (11:31)
[2022-02-07] MEDS: AZITHROMYCIN 500 MG in DEXTROSE 5% IN WATER 250 ML IV SCH (11:31)
[2022-02-07] MEDS: CLOPIDOGREL 75 MG TABLET PO SCH (11:31)
[2022-02-07] MEDS: VITAMIN E (DL,TOCOPHERYL ACET) 400 UNIT CAPSULE PO SCH (20:57)
[2022-02-07] MEDS: MULTIVIT,THER IRON,CA,FA & MIN 1 TABLET PO SCH ×2 (20:58→21:11)
[2022-02-07] MEDS: ASPIRIN 81 MG TAB.CHEW PO SCH (20:58)
[2022-02-07] MEDS: SENNOSIDES 1 TABLET PO SCH (20:58)
[2022-02-07] MEDS: MAGNESIUM OXIDE 400 MG TABLET PO SCH (20:58)
[2022-02-07] MEDS: EVENING PRIMROSE OIL 500 MG PO SCH (20:59)
[2022-02-07] MEDS: ACETAMINOPHEN 325 MG TABLET PO PRN (21:04)
[2022-02-08] MEDS: 0.9 % SODIUM CHLORIDE 10 ML SYRINGE IV SCH ×3 (05:46→20:43)
[2022-02-08 07:21] LABS: Basophils # (Auto) 0.07 K/mcL (0.00-0.30); Eosinophils # (Auto) 0.34 K/mcL (0.00-0.70); Eosinophils % (Auto) 5.1 % (0.0-7.0); Hemoglobin 13.3 g/dL (11.2-15.7); Lymphocytes # (Auto) 2.37 K/mcL (1.50-4.80); Lymphocytes % (Auto) 35.3 % (15.5-49.0); Mean Cell Volume 93.6 fL (80.0-100.0); Mean Corpuscular HGB Conc 32.4 g/dL (31.0-36.0); Mean Platelet Volume 10.5 fL (7.4-10.4); Monocytes # (Auto) 0.59 K/mcL (0.10-0.90); Monocytes % (Auto) 8.8 % (1.0-12.0); Neutrophils % (Auto) 49.8 % (38.0-78.0); Platelet Count 312 K/mcL (140-440); RBC 4.38 M/mcL (3.59-5.38); WBC 6.7 K/mcL (4.5-11.0)
[2022-02-08] MEDS: METOCLOPRAMIDE 10 MG TABLET PO SCH ×3 (07:39→17:07)
[2022-02-08 08:24] LABS: ALT/SGPT 14 U/L (<40); AST/SGOT 19 U/L (<32); Albumin 3.5 gm/dL (3.2-5.2); Albumin/Globulin Ratio 1.7 (1.0-2.3); Alkaline Phosphatase 47 U/L (39-117); Bilirubin,Total 0.2 mg/dL (0.1-1.0); Blood Urea Nitrogen 13 mg/dL (8-23); Calcium 9.5 mg/dL (8.6-10.4); Carbon Dioxide 26 mmol/L (22-30); Chloride 103 mmol/L (96-108); Globulin 2.1 gm/dL (2.2-3.7); Glomerular Filtration Rate 96; Glucose 86 mg/dL (70-105)
[2022-02-08 08:25] LABS: Phosphorous 3.3 mg/dL (2.5-4.5)
--- NOTE | 2022-02-08 10:12 | Internal Med Progress Note ---
SUBJECTIVE Subjective Patient information: Note initiated : 02/08/22 at 10:09 am Service Date, if different from initiated Date: [] Patient: Lnoi Dasilva a 71 y/o F admitted on 02/06/22 for weakness. Chief Complaint: [] Interval history: Ms. Dasilva is a 71 year old F multiple medical comorbidities including stroke, CAD, essential hypertension, mixed dyslipidemia, COVID-pneumonia, COPD, presenting with 6 months history of progressive general body weakness, worsening appetite, shortness of breath, and recently found hypokalemia. She was hospi talized in our facility and being taken care of by myself back in July 2021 for COVID-pneumonia. She was being discharged to assisted before eventually being discharged home. She was having a routine follow-up by her PCP today which after knowing her symptoms aforementioned, recommend her to go to our ER for further evaluations. He is complaining of worsening shortness of breath, ongoing dysphagia, poor appetite, 40 pound weight loss since July 2021, and overall general body weakness. Labs significant for leukocytosis with WBC 14.7. Serum potassium level 2.8. Chest x-ray showing suspected vague developing infiltrate in the right middle and lower lungs concerning for aspiration pneumonia. Admission request for aspiration pneumonia and adult failure to thrive. 02/07: Still on room air. Afebrile overnight. Blood cultures no growth to date. Patient is complaining of improving degree of shortness of breath. Poor cough effort. Denies any subjective fever or chills. Patient really does not like her current dysphagia diet and would like to be evaluated by speech therapist for further diet modifications/recommendations. Pending physical therapist evaluation for further diet modifications/recommendations. Continue Rocephin and Zithromax for aspiration pneumonia. Continue potassium replacement therapy. We will work with case management director for potential SNF placement. 02/08: On room air. Afebrile overnight. Blood cultures no growth to date. c/o improving degree of shortness of breath. c/o productive cough with sputum production. Denies any subjective fever or chills. Tolerating level 6 dysphagia diet. Continue Rocephin and Zithromax for aspiration pneumonia. Pending SNF placement. Constitutional Vitals: Vital Signs Temp Pulse Resp BP Pulse Ox 36.4 C 90 20 148/74 96 02/08/22 07:51 02/08/22 07:51 04/20/22 07:51 02/08/22 07:51 02/08/22 07:51 Period Temp Pulse Resp BP Sys/Wright Pulse Ox Last 24 Hr 36.3 C-36.8 C 90-99 112-160/60-76 93-96 Intake and Output 02/07/22 02/08/22 02/08/22 21:59 05:59 13:59 Intake Total 1020 100 Output Total 1400 825 Balance -380 -725 Weight 44.679 kg Intake & Output: Intake & Output 02/07/22 02/08/22 02/08/22 21:59 05:59 13:59 Intake Total 1020 100 Output Total 1400 825 Balance -380 -725 Weight 44.679 kg Intake: IV 520 Potassium Chloride 40 Meq In 520 Dextrose 5% in Water 500 ml @ 130 mls/hr IV UD PRN Rx#: [id number] Oral 500 100 Output: Void Amount 1400 825 Other: Meal Lunch Percent of Meal Consumed 25% Feeding Ability Independent Urine Appearance Clear Clear Urine Color Bright Yellow Bright Yellow Urine Odor Normal General appearance: cooperative, disheveled and thin Head Head exam: Present atraumatic and normal inspection Eye Eye exam: Present normal appearance ENT ENT exam: Present mucous membranes moist, normal exam and normal external ear exam Neck Neck exam: Present normal inspection Respiratory Respiratory exam: Present decreased breath sounds Cardiovascular Cardiovascular exam: Present normal rate and rhythm GI/Abdominal GI/Abdominal exam: Present normal bowel sounds Back Exam Back exam: Present normal inspection Neurological Exam Neurological exam: Present alert and oriented X3 Skin Skin exam: Present intact and warm OBJ DATA Labs CBC & Chem 7: 02/08/22 05:20 02/08/22 05:20 Labs: Abnormal Lab Results 02/08/22 02/08/22 02/07/22 05:20 05:20 05:56 WBC MPV 10.5 H Neut % (Auto) Lymph % (Auto) Lymph # (Auto) Absolute Neutrophils Potassium 3.1 L 3.0 L BUN Creatinine 0.5 L 0.4 L Calcium Phosphorus 2.3 L Total Protein 5.6 L Globulin 2.1 L Urine Appearance Urine Ketones Hyaline Casts Urine Mucus 02/07/22 02/06/22 02/06/22 05:56 12:54 11:30 WBC MPV 10.9 H Neut % (Auto) Lymph % (Auto) Lymph # (Auto) Absolute Neutrophils Potassium 2.8 L* BUN 25 H Creatinine Calcium 10.8 H Phosphorus Total Protein Globulin Urine Appearance Hazy A Urine Ketones 5 A Hyaline Casts 11 H Urine Mucus Mod A 02/06/22 11:30 WBC 14.7 H MPV 10.9 H Neut % (Auto) 89.5 H Lymph % (Auto) 7.1 L Lymph # (Auto) 1.05 L Absolute Neutrophils 13.18 H Potassium BUN Creatinine Calcium Phosphorus Total Protein Globulin Urine Appearance Urine Ketones Hyaline Casts Urine Mucus Meds: Medications Acetaminophen (Acetaminophen 325 Mg Tablet) 650 mg PO Q6HP PRN; Protocol PRN Reason: Per Pain Protocol/Fever > 101 Last Admin: 02/07/22 21:04 Dose: 650 mg Documented by: Albuterol Sulfate (Albuterol Sulfate 2.5 Mg/3 Ml Nebulizer) 5 mg NEB QIDP PRN PRN Reason: Shortness Of Breath Albuterol/Ipratropium (Ipratropium/Albuterol 3 Ml Ampul.Neb) 3 ml NEB Q4HRT PRN PRN Reason: Wheezing Aspirin (Aspirin 81 Mg Tab.Chew) 81 mg PO QHS [facility] Last Admin: 02/07/22 20:58 Dose: 81 mg Documented by: Calcium/Vitamin D (Calcium W/Vit D3 500 Mg Tablet) 500 mg PO DAILY [facility] Last Admin: 02/07/22 09:37 Dose: Not Given Documented by: Ceftriaxone Sodium (Ceftriaxone 1 Gm Vial) 1 gm IV Q24H [facility] Last Admin: 02/07/22 08:40 Dose: 1 gm Documented by: Cetirizine HCl (Cetirizine 10 Mg Tablet) 10 mg PO DAILY [facility] Last Admin: 02/07/22 08:39 Dose: 10 mg Documented by: Clopidogrel Bisulfate (Clopidogrel 75 Mg Tablet) 75 mg PO QDAY [facility] Last Admin: 02/07/22 11:31 Dose: 75 mg Documented by: Cyanocobalamin (Cyanocobalamin (Vitamin B-12) 500 Mcg Tablet) 1,000 mcg PO DAILY [facility] Last Admin: 02/07/22 09:37 Dose: Not Given Documented by: Docusate Sodium (Docusate Sodium 100 Mg Capsule) 100 mg PO BID [facility] Last Admin: 02/07/22 21:10 Dose: Not Given Documented by: Fenofibrate (Fenofibrate 43 Mg Capsule) 43 mg PO DAILY [facility] Last Admin: 02/07/22 08:42 Dose: 43 mg Documented by: Fish Oil (Fish Oil 1,000 Mg Capsule) 1,000 mg PO BID [facility] Last Admin: 02/07/22 20:58 Dose: 1,000 mg Documented by: Fluticasone Propionate (Fluticasone Propionate [place].Navid) 1 spray NS QDAY [facility] Last Admin: 02/07/22 09:36 Dose: Not Given Documented by: Guaifenesin (Guaifenesin/Dextromethorphan Oral Angela) 10 ml PO Q4HP PRN PRN Reason: Cough Azithromycin 500 mg/ Dextrose 250 mls @ 250 mls/hr IV Q24H [facility]; Protocol Stop: 02/08/22 18:59 Last Infusion: 02/07/22 12:33 Dose: Infused Documented by: Potassium Chloride 40 meq/ (Dextrose) 520 mls @ 130 mls/hr IV UD PRN PRN Reason: hypokalemia Last Infusion: 02/07/22 15:31 Dose: Infused Documented by: Iron Carb/Multivit/[place]/Folic Acid (Multivit,Ther Iron,Ca,Fa & Min 1 Tablet) 1 tab PO QHS [facility] Last Admin: 02/07/22 21:11 Dose: Not Given Documented by: Losartan Potassium (Losartan 50 Mg Tablet) 50 mg PO QDAY [facility] Last Admin: 02/07/22 09:19 Dose: 50 mg Documented by: Magnesium Oxide (Magnesium Oxide 400 Mg Tablet) 400 mg PO QHS [facility] Last Admin: 02/07/22 20:58 Dose: 400 mg Documented by: Metoclopramide HCl (Metoclopramide 10 Mg Tablet) 5 mg PO [facility] Last Admin: 02/08/22 07:39 Dose: 5 mg Documented by: Ondansetron HCl (Ondansetron 4 Mg/2 Ml Vial) 4 mg IV Q6HP PRN PRN Reason: Nausea And Vomiting Coq10 (Ubiquinol) (100 Mg Capsule) 1 dose PO DAILY [facility] Last Admin: 02/07/22 09:36 Dose: Not Given Documented by: Evening [place] Oil (500 Mg Capsule) 2 dose PO QHS [facility] Last Admin: 02/07/22 20:59 Dose: Not Given Documented by: Senna (Sennosides 1 Tablet) 2 tab PO [facility] Last Admin: 02/07/22 20:58 Dose: 2 tab Documented by: Sodium Chloride (0.9 % Sodium Chloride 10 Ml Syringe) 10 ml IV Q8 [facility] Last Admin: 02/08/22 05:46 Dose: 10 ml Documented by: Vitamin D (Vitamin D3 25 Mcg Tablet) 50 mcg PO DAILY [facility] Last Admin: 02/07/22 08:38 Dose: 50 mcg Documented by: Vitamin E (Vitamin E (Dl,Tocopheryl Acet) 400 Unit Capsule) 800 unit PO QHS [facility] Last Admin: 02/07/22 20:57 Dose: 800 unit Documented by: Zolpidem Tartrate (Zolpidem 5 Mg Tablet) 5 mg PO HSP PRN PRN Reason: Insomnia A/P Assessment and plan (1) Aspiration pneumonia: Status: Acute (2) Hyperlipidemia: Status: Chronic Qualifiers: Hyperlipidemia type: pure hypercholesterolemia Qualified Code(s): E78.00 - Pure hypercholesterolemia, unspecified; E78.00 - Pure hypercholesterolemia, unspecified; E78.00 - Pure hypercholesterolemia, unspecified; E78.0 - Pure hypercholesterolemia (3) Hypertension, essential: Status: Chronic (4) CAD (coronary artery disease): Status: Acute Qualifiers: Coronary Disease-Associated Artery/Lesion type: unspecified vessel or lesion type [place] vs. transplanted heart: [place] heart Associated angina: with unspecified angina Qualified Code(s): I25.119 - Atherosclerotic heart disease of [place] coronary artery with unspecified angina pectoris (5) Failure to thrive in adult: Status: Acute (6) Long COVID: Status: Acute (7) COPD (chronic obstructive pulmonary disease) with acute bronchitis: Status: Acute (8) Hypokalemia: Status: Acute (9) History of stroke: Status: Acute Narrative A/P Narrative: Assessment and Plans: 1. Aspiration pneumonia: Inpatient med surg Supplemental oxygen therapy titrate to achieve spo2>=88%, currently on room air CoVID and influenza screening negative Serial lactic acid Procalcitonin Blood culture, no growth to date Sputum culture, pending sample collection cbc w/ auto diff in the morning Rocephin Zithromax Robitussin DM PRN cough Tylenol PRN fever DuoNEB NEB PRN wheezing 2. Hypokalemia: Potassium replacement IV/PO CMP in the morning to trend serum potassium level, repeat replacement as needed Also check serum Mg level and replace as needed 3. Adult failure to thrive: marketing and public relations manager and licensed social worker clarify goal of care Dietitian and speech therapy evaluation 4. h/o COPD, stable: Supplemental oxygen therapy titrate to achieve spo2>=88%, currently on room air Continue bronchodilators from home regimen 5. Mixed dyslipidemia: Fenofibrate 6. Essential HTN: Continue oral antihypertensives from home regimen 7. h/o CAD: Aspirin Plavix Fenofibrate 8. h/o stroke: Aspirin Fenofibrate 9. Dysphagia: Speech therapy evaluation for diet recs.-->level 6 dysphagia diet Dietitian referral GI ppx: not currently indicated DVT ppx: SCDs Code status: DNI DNR Prognosis: guarded Disposition: inpatient med surg; PT OT SLT Time Spent With Patient Time: Total time spent is greater than 50% in coordination of care (as documented) at patient's floor/unit and/or counseling patient: Total time spent with greater than 50% in coordination of care (as documented) at patient's floor/unit and/or counseling patient:: 25 - 35 minutes QUALITY Stroke Symptom Onset Unknown: No
[2022-02-08] MEDS: CALCIUM W/VIT D3 500 MG TABLET PO SCH (13:45)
[2022-02-08] MEDS: FENOFIBRATE 43 MG CAPSULE PO SCH (13:45)
[2022-02-08] MEDS: LOSARTAN 50 MG TABLET PO SCH (13:46)
[2022-02-08] MEDS: DOCUSATE SODIUM 100 MG CAPSULE PO SCH (13:46)
[2022-02-08] MEDS: CETIRIZINE 10 MG TABLET PO SCH (13:51)
[2022-02-08] MEDS: FISH OIL 1,000 MG CAPSULE PO SCH ×2 (13:51→20:39)
[2022-02-08] MEDS: FLUTICASONE PROPIONATE SPRAY.NAS NS SCH (13:52)
[2022-02-08] MEDS: COQ10 100 MG PO SCH (13:52)
[2022-02-08] MEDS: CYANOCOBALAMIN (VITAMIN B-12) 500 MCG TABLET PO SCH (13:53)
[2022-02-08] MEDS: cefTRIAXone 1 GM VIAL IV SCH (13:53)
[2022-02-08] MEDS: CLOPIDOGREL 75 MG TABLET PO SCH (13:53)
[2022-02-08] MEDS: VITAMIN D3 25 MCG TABLET PO SCH (13:54)
[2022-02-08] MEDS: AZITHROMYCIN 500 MG in DEXTROSE 5% IN WATER 250 ML IV SCH (14:02)
--- NOTE | 2022-02-08 14:31 | Internal Med Progress Note ---
SUBJECTIVE Subjective Patient information: Note initiated : 02/08/22 at 2:25 pm Service Date, if different from initiated Date: [] Patient: Loni Dasilva a 71 y/o F admitted on 02/06/22 for weakness. Chief Complaint: [] Interval history: Ms. Dasilva is a 71 year old F multiple medical comorbidities including stroke, CAD, essential hypertension, mixed dyslipidemia, COVID-pneumonia, COPD, presenting with 6 months history of progressive general body weakness, worsening appetite, shortness of breath, and recently found hypokalemia. She was hospit alized in our facility and being taken care of by myself back in July 2021 for COVID-pneumonia. She was being discharged to custodial before eventually being discharged home. She was having a routine follow-up by her PCP today which after knowing her symptoms aforementioned, recommend her to go to our ER for further evaluations. He is complaining of worsening shortness of breath, ongoing dysphagia, poor appetite, 40 pound weight loss since July 2021, and overall general body weakness. Labs significant for leukocytosis with WBC 14.7. Serum potassium level 2.8. Chest x-ray showing suspected vague developing infiltrate in the right middle and lower lungs concerning for aspiration pneumonia. Admission request for aspiration pneumonia and adult failure to thrive. 02/07: Still on room air. Afebrile overnight. Blood cultures no growth to date. Patient is complaining of improving degree of shortness of breath. Poor cough effort. Denies any subjective fever or chills. Patient really does not like her current dysphagia diet and would like to be evaluated by speech therapist for further diet modifications/recommendations. Pending physical therapist evaluation for further diet modifications/recommendations. Continue Rocephin and Zithromax for aspiration pneumonia. Continue potassium replacement therapy. We will work with watch case polisher for potential SNF placement. 02/08: On room air. Afebrile overnight. Blood cultures no growth to date. c/o improving degree of shortness of breath. c/o productive cough with sputum production. Denies any subjective fever or chills. Tolerating level 6 dysphagia diet. Continue Rocephin and Zithromax for aspiration pneumonia. Pending SNF placement. 02/09 On room air, replaced potassium. Awaiting placement. Physical exam Head: Atraumatic, normal inspection. Eyes: normal appearance, no scleral icterus. Neck: full ROM Respiratory: no respiratory distress. Cardiovascular: normal rate and rhythm, S1, S2. GI/Abdominal: soft, nontender, no guarding. Extremities: full range of motion, nontender. Neurological: CN II-XII intact, intact motor, intact sensation. Psychiatric: normal mood. Skin: warm, normal color Constitutional Vitals: Vital Signs Temp Pulse Resp BP Pulse Ox 98.1 F 98 H 20 125/88 96 02/08/22 12:00 02/08/22 12:00 02/08/22 12:00 02/08/22 12:00 02/08/22 12:00 Period Temp Pulse Resp BP Sys/Wright Pulse Ox Last 24 Hr 97.3 F-98.3 F 90-99 - 112-160/60-88 93-96 Intake and Output 02/08/22 02/08/22 02/08/22 05:59 13:59 21:59 Intake Total 100 Output Total 825 Balance -725 Intake & Output: Intake & Output 02/08/22 02/08/22 02/08/22 05:59 13:59 21:59 Intake Total 100 Output Total 825 Balance -725 Intake: Oral 100 Output: Void Amount 825 Other: Urine Appearance Clear Urine Color Bright Yellow OBJ DATA Labs CBC & Chem 7: 02/09/22 05:14 02/09/22 05:14 Labs: Abnormal Lab Results 02/08/22 02/08/22 02/07/22 05:20 05:20 05:56 WBC MPV 10.5 H Neut % (Auto) Lymph % (Auto) Lymph # (Auto) Absolute Neutrophils Potassium 3.1 L 3.0 L BUN Creatinine 0.5 L 0.4 L Calcium Phosphorus 2.3 L Total Protein 5.6 L Globulin 2.1 L Urine Appearance Urine Ketones Hyaline Casts Urine Mucus 02/07/22 02/06/22 02/06/22 05:56 12:54 11:30 WBC MPV 10.9 H Neut % (Auto) Lymph % (Auto) Lymph # (Auto) Absolute Neutrophils Potassium 2.8 L* BUN 25 H Creatinine Calcium 10.8 H Phosphorus Total Protein Globulin Urine Appearance Hazy A Urine Ketones 5 A Hyaline Casts 11 H Urine Mucus Mod A 02/06/22 11:30 WBC 14.7 H MPV 10.9 H Neut % (Auto) 89.5 H Lymph % (Auto) 7.1 L Lymph # (Auto) 1.05 L Absolute Neutrophils 13.18 H Potassium BUN Creatinine Calcium Phosphorus Total Protein Globulin Urine Appearance Urine Ketones Hyaline Casts Urine Mucus Meds: Medications Acetaminophen (Acetaminophen 325 Mg Tablet) 650 mg PO Q6HP PRN; Protocol PRN Reason: Per Pain Protocol/Fever > 101 Last Admin: 02/07/22 21:04 Dose: 650 mg Documented by: Albuterol Sulfate (Albuterol Sulfate 2.5 Mg/3 Ml Nebulizer) 5 mg NEB QIDP PRN PRN Reason: Shortness Of Breath Albuterol/Ipratropium (Ipratropium/Albuterol 3 Ml Ampul.Neb) 3 ml NEB Q4HRT PRN PRN Reason: Wheezing Aspirin (Aspirin 81 Mg Tab.Chew) 81 mg PO QHS [facility] Last Admin: 02/07/22 20:58 Dose: 81 mg Documented by: Calcium/Vitamin D (Calcium W/Vit D3 500 Mg Tablet) 500 mg PO DAILY [facility] Last Admin: 02/08/22 13:45 Dose: Not Given Documented by: Ceftriaxone Sodium (Ceftriaxone 1 Gm Vial) 1 gm IV Q24H [facility] Last Admin: 02/08/22 13:53 Dose: 1 gm Documented by: Cetirizine HCl (Cetirizine 10 Mg Tablet) 10 mg PO DAILY [facility] Last Admin: 02/08/22 13:51 Dose: 10 mg Documented by: Clopidogrel Bisulfate (Clopidogrel 75 Mg Tablet) 75 mg PO QDAY [facility] Last Admin: 02/08/22 13:53 Dose: 75 mg Documented by: Cyanocobalamin (Cyanocobalamin (Vitamin B-12) 500 Mcg Tablet) 1,000 mcg PO DAILY [facility] Last Admin: 02/08/22 13:53 Dose: Not Given Documented by: Docusate Sodium (Docusate Sodium 100 Mg Capsule) 100 mg PO BID [facility] Last Admin: 02/08/22 13:46 Dose: Not Given Documented by: Fenofibrate (Fenofibrate 43 Mg Capsule) 43 mg PO DAILY [facility] Last Admin: 02/08/22 13:45 Dose: 43 mg Documented by: Fish Oil (Fish Oil 1,000 Mg Capsule) 1,000 mg PO BID [facility] Last Admin: 02/08/22 13:51 Dose: Not Given Documented by: Fluticasone Propionate (Fluticasone Propionate [place].Navid) 1 spray NS QDAY [facility] Last Admin: 02/08/22 13:52 Dose: Not Given Documented by: Guaifenesin (Guaifenesin/Dextromethorphan Oral Angela) 10 ml PO Q4HP PRN PRN Reason: Cough Azithromycin 500 mg/ Dextrose 250 mls @ 250 mls/hr IV Q24H [facility]; Protocol Stop: 02/08/22 18:59 Last Admin: 02/08/22 14:02 Dose: 250 mls/hr Documented by: Potassium Chloride 40 meq/ (Dextrose) 520 mls @ 130 mls/hr IV UD PRN PRN Reason: hypokalemia Last Infusion: 02/07/22 15:31 Dose: Infused Documented by: Iron Carb/Multivit/Linda/Folic Acid (Multivit,Ther Iron,Ca,Fa & Min 1 Tablet) 1 tab PO QHS [facility] Last Admin: 02/07/22 21:11 Dose: Not Given Documented by: Losartan Potassium (Losartan 50 Mg Tablet) 50 mg PO QDAY [facility] Last Admin: 02/08/22 13:46 Dose: 50 mg Documented by: Magnesium Oxide (Magnesium Oxide 400 Mg Tablet) 400 mg PO QHS [facility] Last Admin: 02/07/22 20:58 Dose: 400 mg Documented by: Metoclopramide HCl (Metoclopramide 10 Mg Tablet) 5 mg PO AC [facility] Last Admin: 02/08/22 13:51 Dose: Not Given Documented by: Ondansetron HCl (Ondansetron 4 Mg/2 Ml Vial) 4 mg IV Q6HP PRN PRN Reason: Nausea And Vomiting Coq10 (Ubiquinol) (100 Mg Capsule) 1 dose PO DAILY [facility] Last Admin: 02/08/22 13:52 Dose: Not Given Documented by: Evening [place] Oil (500 Mg Capsule) 2 dose PO QHS [facility] Last Admin: 02/07/22 20:59 Dose: Not Given Documented by: Senna (Sennosides 1 Tablet) 2 tab PO HS [facility] Last Admin: 02/07/22 20:58 Dose: 2 tab Documented by: Sodium Chloride (0.9 % Sodium Chloride 10 Ml Syringe) 10 ml IV Q8 [facility] Last Admin: 02/08/22 14:02 Dose: 10 ml Documented by: Vitamin D (Vitamin D3 25 Mcg Tablet) 50 mcg PO DAILY [facility] Last Admin: 02/08/22 13:54 Dose: Not Given Documented by: Vitamin E (Vitamin E (Dl,Tocopheryl Acet) 400 Unit Capsule) 800 unit PO QHS [facility] Last Admin: 02/07/22 20:57 Dose: 800 unit Documented by: Zolpidem Tartrate (Zolpidem 5 Mg Tablet) 5 mg PO HSP PRN PRN Reason: Insomnia A/P Narrative A/P Narrative: Assessment: 71-year-old female with multiple medical comorbidities including hypertension, hyperlipidemia, COPD, coronary artery disease, stroke, prior COVID-pneumonia now admitted for community-acquired pneumonia possibly secondary to aspiration and failure to thrive. #Community-acquired pneumonia #Dysphagia #Malnourishment #Hypokalemia #Failure to thrive #Malnourishment #COPD, stable #CAD, stable #Essential hypertension #Hyperlipidemia Plan -Ceftriaxone and azithromycin. -Monitor respiratory status. -Replace electrolytes as needed. -Continue home aspirin, Plavix, cetirizine, losartan. -PT, OT, speech therapy. -Nutrition following. -Dysphagia diet per speech. -CODE STATUS: DNR -Disposition: SNF pending placement. Time Spent With Patient Time: Total time spent is greater than 50% in coordination of care (as documented) at patient's floor/unit and/or counseling patient: QUALITY Stroke Symptom Onset Unknown: No
[2022-02-08] MEDS: ACETAMINOPHEN 325 MG TABLET PO PRN (20:39)
[2022-02-08] MEDS: ASPIRIN 81 MG TAB.CHEW PO SCH (20:39)
[2022-02-08] MEDS: MAGNESIUM OXIDE 400 MG TABLET PO SCH (20:39)
[2022-02-08] MEDS: VITAMIN E (DL,TOCOPHERYL ACET) 400 UNIT CAPSULE PO SCH (20:39)
[2022-02-08] MEDS: SENNOSIDES 1 TABLET PO SCH (20:39)
[2022-02-08] MEDS: EVENING PRIMROSE OIL 500 MG PO SCH (20:40)
[2022-02-08] MEDS: MULTIVIT,THER IRON,CA,FA & MIN 1 TABLET PO SCH (20:40)
[2022-02-09] MEDS: 0.9 % SODIUM CHLORIDE 10 ML SYRINGE IV SCH ×3 (05:36→20:34)
[2022-02-09 07:05] LABS: ALT/SGPT 16 U/L (<40); AST/SGOT 22 U/L (<32); Albumin 3.6 gm/dL (3.2-5.2); Albumin/Globulin Ratio 1.7 (1.0-2.3); Alkaline Phosphatase 50 U/L (39-117); Basophils # (Auto) 0.08 K/mcL (0.00-0.30); Bilirubin,Total 0.3 mg/dL (0.1-1.0); Blood Urea Nitrogen 14 mg/dL (8-23); Calcium 9.6 mg/dL (8.6-10.4); Carbon Dioxide 28 mmol/L (22-30); Chloride 106 mmol/L (96-108); Eosinophils # (Auto) 0.36 K/mcL (0.00-0.70); Eosinophils % (Auto) 4.6 % (0.0-7.0); Globulin 2.1 gm/dL (2.2-3.7); Glomerular Filtration Rate 96; Glucose 89 mg/dL (70-105); Hematocrit 41.8 % (34.1-44.9); Hemoglobin 13.7 g/dL (11.2-15.7); Lymphocytes # (Auto) 2.15 K/mcL (1.50-4.80); Lymphocytes % (Auto) 27.6 % (15.5-49.0); Mean Cell Volume 92.9 fL (80.0-100.0); Mean Corpuscular HGB Conc 32.8 g/dL (31.0-36.0); Monocytes # (Auto) 0.83 K/mcL (0.10-0.90); Monocytes % (Auto) 10.7 % (1.0-12.0); Neutrophils % (Auto) 56.1 % (38.0-78.0); Phosphorous 3.6 mg/dL (2.5-4.5); Platelet Count 310 K/mcL (140-440); Red Cell Distribution Width 13.1 % (11.5-14.5); WBC 7.8 K/mcL (4.5-11.0)
[2022-02-09] MEDS: METOCLOPRAMIDE 10 MG TABLET PO SCH ×3 (07:31→16:17)
[2022-02-09] MEDS: guaiFENesin/DEXTROMETHORPHAN ORAL SOL PO PRN ×2 (07:31→20:34)
[2022-02-09] MEDS: CLOPIDOGREL 75 MG TABLET PO SCH (09:03)
[2022-02-09] MEDS: LOSARTAN 50 MG TABLET PO SCH (09:03)
[2022-02-09] MEDS: CETIRIZINE 10 MG TABLET PO SCH (09:03)
[2022-02-09] MEDS: FENOFIBRATE 43 MG CAPSULE PO SCH (09:03)
[2022-02-09] MEDS: POLYETHYLENE GLYCOL 3350 17 GM PACKET PO SCH (09:04)
[2022-02-09] MEDS: CALCIUM W/VIT D3 500 MG TABLET PO SCH (09:06)
[2022-02-09] MEDS: FISH OIL 1,000 MG CAPSULE PO SCH ×2 (09:06→20:34)
[2022-02-09] MEDS: FLUTICASONE PROPIONATE SPRAY.NAS NS SCH (09:07)
[2022-02-09] MEDS: CYANOCOBALAMIN (VITAMIN B-12) 500 MCG TABLET PO SCH (09:07)
[2022-02-09] MEDS: VITAMIN D3 25 MCG TABLET PO SCH (09:07)
[2022-02-09] MEDS: COQ10 100 MG PO SCH (09:07)
[2022-02-09] MEDS: cefTRIAXone 1 GM VIAL IV SCH (09:07)
[2022-02-09] MEDS: POTASSIUM CHLORIDE 20 MEQ PACKET PO SCH (16:17)
[2022-02-09] MEDS: MULTIVIT,THER IRON,CA,FA & MIN 1 TABLET PO SCH (20:29)
[2022-02-09] MEDS: EVENING PRIMROSE OIL 500 MG PO SCH (20:29)
[2022-02-09] MEDS: VITAMIN E (DL,TOCOPHERYL ACET) 400 UNIT CAPSULE PO SCH (20:34)
[2022-02-09] MEDS: SENNOSIDES 1 TABLET PO SCH (20:34)
[2022-02-09] MEDS: ASPIRIN 81 MG TAB.CHEW PO SCH (20:34)
[2022-02-09] MEDS: MAGNESIUM OXIDE 400 MG TABLET PO SCH (20:34)
[2022-02-10] MEDS: POTASSIUM CHLORIDE 40 MEQ in DEXTROSE 5% IN WATER 500 ML IV PRN (01:32)
[2022-02-10] MEDS ORDERED: POTASSIUM CHLORIDE 20 MEQ/10 ML VIAL IV ONE (01:33)
[2022-02-10] MEDS: 0.9 % SODIUM CHLORIDE 10 ML SYRINGE IV SCH (05:29)
[2022-02-10 06:47] LABS: ALT/SGPT 16 U/L (<40); AST/SGOT 23 U/L (<32); Albumin 3.9 gm/dL (3.2-5.2); Albumin/Globulin Ratio 1.9 (1.0-2.3); Alkaline Phosphatase 52 U/L (39-117); Bilirubin,Direct < 0.2 mg/dL (0-0.3); Bilirubin,Total 0.3 mg/dL (0.1-1.0); Blood Urea Nitrogen 17 mg/dL (8-23); Calcium 9.5 mg/dL (8.6-10.4); Carbon Dioxide 29 mmol/L (22-30); Chloride 103 mmol/L (96-108); Globulin 2.1 gm/dL (2.2-3.7); Glomerular Filtration Rate 96; Glucose 92 mg/dL (70-105); Lactate Dehydrogenase 236 U/L (135-225); Phosphorous 2.6 mg/dL (2.5-4.5); Triglycerides 85 mg/dL (<150); Uric Acid 3.8 mg/dL (2.5-8.0)
[2022-02-10] MEDS: METOCLOPRAMIDE 10 MG TABLET PO SCH (06:57)
--- NOTE | 2022-02-10 07:05 | Discharge Summary ---
Discharge Provider Provider Patient information: Note initiated : 02/10/22 at 7:04 am Service Date, if different from initiated Date: [] Patient: Loni Dasilva 71 y/o F admitted on 02/06/22 for weakness. Chief Complaint: [] Date of admission: 02/06/22 17:15 Discharge date: 02/10/22 Primary care physician: Armando Odonnell DO Consults: 02/06/22 Consult to Physician [CONS] Stat Comment: Consulting Provider: Be Lopez Reason For Exam: Physician to Consult Discharge Meds Discharge Medications Home Medications multivitamin 1 tab PO QHS 08/09/17 [History Confirmed 02/06/22 Last Taken 07/22/21 21:00] vitamin E (dl, acetate) 450 mg (1,000 unit) capsule 1,000 unit PO QHS 08/09/17 [History Confirmed 02/06/22 Last Taken 07/22/21 21:00] fluticasone propionate 50 mcg/actuation nasal spray,suspension (Flonase Allergy Relief) 1 spray INTRANASAL QDAY #15.8 ml 10/04/20 [Rx Confirmed 02/06/22 Last Taken 07/22/21 21:00] aspirin 81 mg tablet,delayed release 81 mg PO QHS 10/05/20 [History Confirmed 02/06/22 Last Taken 07/22/21 21:00] evening primrose oil 500 mg capsule 1,000 mg PO QHS cap 10/05/20 [History Confirmed 02/06/22 Last Taken 07/22/21 21:00] cholecalciferol (vitamin D3) 50 mcg (2,000 unit) capsule 50 mcg PO QDAY #90 cap 05/04/21 [Rx Confirmed 02/06/22 Last Taken 07/22/21 21:00] mecobalamin (vitamin B12) 1,000 mcg chewable tablet 1,000 mcg PO QDAY #90 tab 05/04/21 [Rx Confirmed 02/06/22 Last Taken Unknown] magnesium 250 mg tablet 500 mg PO QHS tab 07/19/21 [History Confirmed 02/06/22 Last Taken 07/22/21 21:00] omega 4-qmz-snj-fish oil 900 mg-1,400 mg capsule,delayed release (Fish Oil) 1 cap PO BID cap 07/19/21 [History Confirmed 02/06/22 Last Taken 07/22/21 21:00] fenofibrate 54 mg tablet 54 mg PO QDAY #90 tab 07/21/21 [Rx Confirmed 02/06/22 Last Taken 07/22/21 21:00] metoclopramide HCl 5 mg tablet 5 mg PO QAC #30 tab 11/23/21 [Rx Confirmed 02/06/22 Last Taken Unknown] clopidogrel 75 mg tablet (Plavix) 75 mg PO QDAY #90 tab 11/28/21 [Rx Confirmed 02/06/22 Last Taken Unknown] losartan 50 mg tablet 50 mg PO QDAY #100 tab 01/09/22 [Rx Confirmed 02/06/22 Last Taken Unknown] estradiol cypionate 5 mg/mL intramuscular oil (Depo-Estradiol) 5 mg IM Q4W #5 ml 01/30/22 [Rx Confirmed 02/06/22 Last Taken Unknown] albuterol sulfate 2.5 mg/0.5 mL solution for nebulization 5 mg INHALATION QID PRN #30 ea 01/31/22 [Rx Confirmed 02/06/22 Last Taken Unknown] nebulizer and compressor #1 ea 01/31/22 [Rx Confirmed 02/06/22 Last Taken Unknown] calcium carb-ergocalciferol (vit D2) 600 mg calcium-200 unit tablet 1 tab PO QDAY 02/06/22 [History Confirmed 02/06/22 Last Taken Unknown] cetirizine 10 mg capsule (Zyrtec) 10 mg PO QDAY 02/06/22 [History Confirmed 02/06/22 Last Taken Unknown] coQ10 (ubiquinol) 100 mg capsule 100 mg PO DAILY 02/06/22 [History Confirmed 02/06/22 Last Taken Unknown] cefuroxime axetil 500 mg tablet 500 mg PO BID 2 Days #4 tab 02/10/22 [Rx Last Taken Unknown] COURSE Hospital Course Hospital course: Ms. Dasilva is a 71 year old F multiple medical comorbidities including stroke, CAD, essential hypertension, mixed dyslipidemia, COVID-pneumonia, COPD, presenting with 6 months history of progressive general body weakness, worsening appetite, shortness of breath, and recently found hypokalemia. She was hospitalized in our facility and being taken care of by myself back in July 2021 for COVID-pneumonia. She was being discharged to [facility] before eventually being discharged home. She was having a routine follow-up by her PCP today which after knowing her symptoms aforementioned, recommend her to go to our ER for further evaluations. He is complaining of worsening shortness of breath, ongoing dysphagia, poor appetite, 40 pound weight loss since July 2021, and overall general body weakness. Labs significant for leukocytosis with WBC 14.7. Serum potassium level 2.8. Chest x-ray showing suspected vague developing infiltrate in the right middle and lower lungs concerning for aspiration pneumonia. Admission request for aspiration pneumonia and adult failure to thrive. 02/07: Still on room air. Afebrile overnight. Blood cultures no growth to date. Patie nt is complaining of improving degree of shortness of breath. Poor cough effort. Denies any subjective fever or chills. Patient really does not like her current dysphagia diet and would like to be evaluated by speech therapist for further diet modifications/recommendations. Pending physical therapist evaluation for further diet modifications/recommendations. Continue Rocephin and Zithromax for aspiration pneumonia. Continue potassium replacement therapy. We will work with case assistant for potential SNF placement. 02/08: On room air. Afebrile overnight. Blood cultures no growth to date. c/o improving degree of shortness of breath. c/o productive cough with sputum production. Denies any subjective fever or chills. Tolerating level 6 dysphagia diet. Continue Rocephin and Zithromax for aspiration pneumonia. Pending SNF placement. 02/09 On room air, replaced potassium. Awaiting placement. 02/10 Discharged to SNF. Physical exam Head: Atraumatic, normal inspection. Eyes: normal appearance, no scleral icterus. Neck: full ROM Respiratory: no respiratory distress. Cardiovascular: normal rate and rhythm, S1, S2. GI/Abdominal: soft, nontender, no guarding. Extremities: full range of motion, nontender. Neurological: CN II-XII intact, intact motor, intact sensation. Psychiatric: normal mood. Skin: warm, normal color Discharge diagnosis: Community acquired pneumonia Secondary discharge diagnosis: Failure to thrive Time Spent with Patient Time attestation: Total time spent providing and/or coordinating discharge services: EXAM Constitutional Vitals: Temp Pulse Resp BP Pulse Ox 97.7 F 86 17 148/60 96 02/10/22 06:44 02/10/22 06:44 02/10/22 06:44 02/10/22 06:44 02/10/22 06:44 Discharge Data Data Completed and Pending Labs on day of discharge: Labs from last 24 hours 02/10/22 02/09/22 02/09/22 05:22 05:14 05:14 WBC RBC Hgb Hct MCV MCH MCHC RDW Plt Count MPV Neut % (Auto) Lymph % (Auto) [place] % (Auto) Eos % (Auto) Baso % (Auto) Lymph # (Auto) [place] # (Auto) Eos # (Auto) Baso # (Auto) Absolute Neutrophils Sodium 139 143 Potassium 3.4 3.1 L Chloride 103 106 Carbon Dioxide 29 28 Anion Gap 7.0 L 9.0 BUN 17 14 Creatinine 0.5 L 0.5 L GFR Calculation 96 96 Glucose 92 89 Uric Acid 3.8 Calcium 9.5 9.6 Phosphorus 2.6 3.6 Magnesium 2.2 TNP 2.0 Total Bilirubin 0.3 0.3 Direct Bilirubin < 0.2 GGT 8 AST 23 22 ALT 16 16 Alkaline Phosphatase 52 50 Lactate Dehydrogenase 236 H Total Protein 6.0 5.7 L Albumin 3.9 3.6 Globulin 2.1 L 2.1 L Albumin/Globulin Ratio 1.9 1.7 Triglycerides 85 02/09/22 05:14 WBC 7.8 RBC 4.50 Hgb 13.7 Hct 41.8 MCV 92.9 MCH 30.4 MCHC 32.8 RDW 13.1 Plt Count 310 MPV 11.0 H Neut % (Auto) 56.1 Lymph % (Auto) 27.6 [place] % (Auto) 10.7 Eos % (Auto) 4.6 Baso % (Auto) 1.0 Lymph # (Auto) 2.15 [place] # (Auto) 0.83 Eos # (Auto) 0.36 Baso # (Auto) 0.08 Absolute Neutrophils 4.37 Sodium Potassium Chloride Carbon Dioxide Anion Gap BUN Creatinine GFR Calculation Glucose Uric Acid Calcium Phosphorus Magnesium Total Bilirubin Direct Bilirubin GGT AST ALT Alkaline Phosphatase Lactate Dehydrogenase Total Protein Albumin Globulin Albumin/Globulin Ratio Triglycerides Preliminary micro results at discharge 02/06/22 19:06 Blood Culture - Preliminary Blood 02/06/22 18:55 Blood Culture - Preliminary Blood Discharge Plan Patient/Caregiver Discharge Instructions Activity: as per physical therapy Diet: Dysphagia Level 6 Soft & Bite-Sized Foods Instructions: Aspiration Pneumonia (DC), Aspiration Precautions (ED) Activity Restrictions/Additional Instructions: You were seen and evaluated for increasing weakness and cough with difficulty clearing secretions. You were found to have a probable developing right-sided pneumonia, which I think is likely a result of difficulty clearing secretions and aspiration. You are being placed on an antibiotic for 10 days. Clinical social work has followed up to assure that you will be receiving adequate home health therapies. It is very important that you work thoroughly with your speech therapist to improve secretion clearance. Please follow-up with Dr. Odonnell as early as possible for a recheck. If your symptoms do not improve with the antibiotic and you have worsening signs of infection such as fever greater than 101 Fahrenheit, increasing shortness of breath, or increasing weakness then please return the emergency room for reevaluation. Prescriptions: New cefuroxime axetil 500 mg tablet 500 mg PO BID 2 Days Qty: 4 0RF Continued evening primrose oil 500 mg capsule 1,000 mg PO QHS 0RF Rx Instructions: give with meal/snack aspirin 81 mg tablet,delayed release (DR/EC) 81 mg PO QHS 0RF fenofibrate 54 mg tablet 54 mg PO QDAY Qty: 90 1RF Label Comments: pt takes at HS metoclopramide HCl 5 mg tablet 5 mg PO QAC Qty: 30 4RF Rx Instructions: administer 30 minutes before meals clopidogrel [Plavix] 75 mg tablet 75 mg PO QDAY Qty: 90 1RF Label Comments: pt takes at HS losartan 50 mg tablet 50 mg PO QDAY Qty: 100 1RF Label Comments: pt takes at HS Depo-Estradiol 5 mg/mL oil 5 mg IM Q4W Qty: 5 3RF fluticasone propionate [Flonase Allergy Relief] 50 mcg/actuation spray,suspension 1 spray INTRANASAL QDAY Qty: 15.8 0RF Label Comments: pt takes at HS Rx Instructions: administer into each nostril vitamin E (dl, acetate) 1,000 unit capsule 1,000 unit PO QHS 0RF multivitamin tablet 1 tab PO QHS 0RF cholecalciferol (vitamin D3) 50 mcg (2,000 unit) capsule 50 mcg PO QDAY Qty: 90 3RF Label Comments: pt takes at night mecobalamin (vitamin B12) 1,000 mcg tablet,chewable 1,000 mcg PO QDAY Qty: 90 3RF magnesium 250 mg tablet 500 mg PO QHS 0RF Fish Oil 900-1,400 mg capsule,delayed release(DR/EC) 1 cap PO BID 0RF albuterol sulfate 2.5 mg/0.5 mL solution for nebulization 5 mg inhalation QID PRN (Reason: shortness of breath or wheezing) Qty: 30 0RF (DME) nebulizer and compressor Device See Rx Instructions .Route Qty: 1 0RF Rx Instructions: As directed calcium carbonate-vitamin D2 600 mg calcium- 200 unit Tablet 1 tab PO QDAY 0RF Zyrtec 10 mg Capsule 10 mg PO QDAY 0RF coQ10 (ubiquinol) 100 mg Capsule 100 mg PO DAILY 0RF Other Ambulatory Orders: OT Discharge Order (Routine) Location: None Selected Ordered By: Triston Titus Physical Therapy at Discharge - General (Routine) Location: None Selected Ordered By: Triston Titus ST Discharge Order (Routine) Location: None Selected Ordered By: Triston Titus Follow Up Plan Follow up with: Armando Odonnell DO [Primary Care Provider] - Patient Disposition: Xfer SNF Prognosis: Fair Rehab Potential: Fair I certify that the patient requires SNF services: Yes Overall status at discharge: patient is progressing back to baseline Discharge Orders: Discharge Order (Routine); Ordered 02/10/22 Ordered By: Triston Titus
[2022-02-10] MEDS: CYANOCOBALAMIN (VITAMIN B-12) 500 MCG TABLET PO SCH (08:03)
[2022-02-10] MEDS: POTASSIUM CHLORIDE 20 MEQ PACKET PO SCH (08:04)
[2022-02-10] MEDS: CALCIUM W/VIT D3 500 MG TABLET PO SCH (08:04)
[2022-02-10] MEDS: VITAMIN D3 25 MCG TABLET PO SCH (08:04)
[2022-02-10] MEDS: LOSARTAN 50 MG TABLET PO SCH (08:04)
[2022-02-10] MEDS: CLOPIDOGREL 75 MG TABLET PO SCH (08:04)
[2022-02-10] MEDS: FENOFIBRATE 43 MG CAPSULE PO SCH (08:04)
[2022-02-10] MEDS: CETIRIZINE 10 MG TABLET PO SCH (08:04)
[2022-02-10] MEDS: FISH OIL 1,000 MG CAPSULE PO SCH (08:04)
[2022-02-10] MEDS: COQ10 100 MG PO SCH (08:05)
[2022-02-10] MEDS: FLUTICASONE PROPIONATE SPRAY.NAS NS SCH (08:05)
[2022-02-10] MEDS: POLYETHYLENE GLYCOL 3350 17 GM PACKET PO SCH (08:05)
[2022-02-10] MEDS: cefTRIAXone 1 GM VIAL IV SCH (08:31)
[2022-03-06] MEDS ORDERED: ESTRADIOL CYPIONATE 5 MG/ML ML IM SCH (09:00)
== END 2022-02-10 09:35 | DRG 178 ==
LOC: ED 11:12 → MEDSUR 17:15
PROVIDERS: ADMIT Internal Medicine; ATTEND Internal Medicine

== ENCOUNTER 2022-04-25 07:21 | Inpatient (IN) ==
[2022-04-25] MEDS ORDERED: IPRATROPIUM 2.5 ML AMPUL.NEB NEB ONE (07:46)
[2022-04-25] MEDS ORDERED: 0.9 % SODIUM CHLORIDE 2,000 ML IV ONE (07:46)
[2022-04-25] MEDS ORDERED: methylPREDNISolone SOD SUCC 125 MG/2 ML VIAL IV ONE (07:49)
--- NOTE | 2022-04-25 08:12 | XRay Report ---
INDICATION: dyspnea TECHNIQUE: AP portable upright chest x-ray COMPARISON: Previous chest x-rays dated 04/19/2022, 04/13/2022, 02/06/2022 FINDINGS: Lungs:Appearance consistent with COPD. Mild focal pulmonary parenchymal density at the right lung base. Pneumonia is possible. Clinical correlation and follow-up radiograph is recommended. No other new or focal abnormality. Heart, vascular:No significant cardiomegaly. Pulmonary vascularity is normal. No pulmonary edema or pulmonary congestion Mediastinum, steffanie:No mediastinal widening. No hilar mass Pleura:No pleural fluid. No pleural-based mass or calcification Skeletal:There is right convex thoracolumbar scoliosis IMPRESSION: 1. Appearance consistent with COPD 2. Right basilar infiltrate consistent with pneumonia. Follow-up radiographs recommended. Interpreted and Authenticated by: Armando Mcintyre 04/25/22
[2022-04-25] MEDS ORDERED: LEVOFLOXACIN 500 MG/100 ML BAG IV ONE (08:37)
[2022-04-25 08:58] LABS: Hematocrit 48.5 % (34.1-44.9); Hemoglobin 15.6 g/dL (11.2-15.7); Mean Corpuscular HGB Conc 32.2 g/dL (31.0-36.0); Mean Platelet Volume 11.2 fL (7.4-10.4); Platelet Count 286 K/mcL (140-440); RBC 5.16 M/mcL (3.59-5.38); Red Cell Distribution Width 12.7 % (11.5-14.5); WBC 9.5 K/mcL (4.5-11.0)
--- NOTE | 2022-04-25 09:11 | Emergency Department Note ---
SOB HPI General Chief Complaint: Shortness of Breath/Dyspnea Stated Complaint: shortness of breath, hypoxia Time Seen by Provider: 04/25/22 07:37 Source: family Mode of arrival: wheelchair Limitations: physical limitation History of Present Illness HPI Narrative: 71-year-old female with past medical history of COPD, coronary artery disease, pneumonia and as below presents with his son and montessori program director due to shortness of breath for 2 weeks. Patient's son says that patient has lost significant weight of 45 pounds in 6 months with good appetite. Patient appears very weak and emaciated and responds to questions slowly. Patient has no headache, dizziness, chest pain, abdominal pain, nausea/vomiting/constipation/diarrhea, fever or chills. Patient is allergic to albuterol and Augmentin besides several other medications as mentioned in her allergies section of her chart. Related Data Home Medications Medication Instructions Recorded Confirmed multivitamin 1 tab PO QHS 08/09/17 04/13/22 vitamin E (dl, acetate) 450 mg 1,000 unit PO QHS 08/09/17 04/13/22 (1,000 unit) capsule aspirin 81 mg tablet,delayed 81 mg PO QHS 10/05/20 04/13/22 release evening primrose oil 500 mg capsule 1,000 mg PO QHS 10/05/20 04/13/22 magnesium 250 mg tablet 500 mg PO QHS 07/19/21 04/13/22 omega 1-fcv-ypp-fish oil 900 1 cap PO BID 07/19/21 04/13/22 mg-1,400 mg capsule,delayed release (Fish Oil) calcium carb-ergocalciferol (vit 1 tab PO QDAY 02/06/22 04/13/22 D2) 600 mg calcium-200 unit tablet cetirizine 10 mg capsule (Zyrtec) 10 mg PO QDAY 02/06/22 04/13/22 coQ10 (ubiquinol) 100 mg capsule 100 mg PO DAILY 02/06/22 04/13/22 Previous Rx's Medication Instructions Recorded fluticasone propionate 50 1 spray intranasal QDAY #15.8 mL 10/04/20 mcg/actuation nasal spray,suspension (Flonase Allergy Relief) cholecalciferol (vitamin D3) 50 50 mcg PO QDAY #90 caps 05/04/21 mcg (2,000 unit) capsule mecobalamin (vitamin B12) 1,000 1,000 mcg PO QDAY #90 tabs 05/04/21 mcg chewable tablet metoclopramide HCl 5 mg tablet 5 mg PO QAC #30 tabs 11/23/21 losartan 50 mg tablet 50 mg PO QDAY #100 tabs 01/09/22 estradiol cypionate 5 mg/mL 5 mg IM Q4W #5 mL 01/30/22 intramuscular oil (Depo-Estradiol) nebulizer and compressor #1 ea 01/31/22 escitalopram oxalate 10 mg tablet 10 mg PO QDAY #90 tabs 03/15/22 mirtazapine 7.5 mg tablet 7.5 mg PO QDAY #30 tabs 03/15/22 amlodipine 10 mg tablet 10 mg PO QDAY #90 tabs 04/06/22 clopidogrel 75 mg tablet (Plavix) 75 mg PO QDAY #90 tabs 04/06/22 fenofibrate 54 mg tablet 54 mg PO QDAY #90 tabs 04/06/22 benzonatate 100 mg capsule 100 mg PO TID PRN cough #20 caps 04/19/22 albuterol sulfate 2.5 mg (3 mL) inhalation QID PRN 04/21/22 shortness of breath or wheezing #180 mL cefpodoxime 200 mg tablet 200 mg PO BID #4 tabs 04/28/22 Allergies Allergy/AdvReac Type Severity Reaction Status Date / Time red dye Allergy Mild Hives Verified 04/25/22 07:24 clavulanic acid AdvReac Intermediate Diarrhea, Verified 04/25/22 07:24 [From Augmentin] severe pain gabapentin AdvReac Intermediate Dizziness, Verified 04/25/22 07:24 lightheaded hydromorphone [From Dilaudid] AdvReac Intermediate Fever, Verified 04/25/22 07:24 seizure like activity Nortriptyline AdvReac Intermediate Hair loss Verified 04/25/22 07:24 [id number]-[id number] Reductase AdvReac Intermediate Diarrhea, Verified 04/25/22 07:24 Inhibitor Vision [[id number]-Qau Reductase changes Inhibitor] MERT Inhibitors AdvReac Mild Diarrhea Verified 04/25/22 07:24 amlodipine AdvReac Mild Diarrhea Verified 04/25/22 07:24 Amoxicillin [From Augmentin] AdvReac Mild Diarrhea, Verified 04/25/22 07:24 severe pain rosuvastatin AdvReac Mild muscle Verified 04/25/22 07:24 cramps, weakness simvastatin AdvReac Mild Diarrhea Verified 04/25/22 07:24 Review of Systems ROS ROS Narrative: Narrative: All systems ED: reviewed and negative except as stated. Constitutional: Reports weakness Eyes: Denies vision change ENT ED: Reports dental pain Cardiovascular: Reports as per HPI; Denies chest pain Respiratory: Reports as per HPI and shortness of breath; Denies cough Gastrointestinal: Reports as per HPI; Denies abdominal pain Genitourinary: Denies dysuria Neurological: Reports as per HPI PFS Narrative Patient History Narrative: Narrative: Medical/Surgical/Family History All Active Problems (Updated 04/25/22 @ 09:19 by Joe Tinoco MD) Acute dyspnea (Acute) Acute exacerbation of chronic obstructive pulmonary disease (COPD) (Acute) Acute dehydration (Acute) Acute hypokalemia (Acute) Acute exacerbation of chronic obstructive pulmonary disease (Acute) Pneumonia (Acute) Abnormal weight loss (Acute) At risk for aspiration pneumonia (Acute) History of stroke (Acute) Hypokalemia (Acute) Aspiration pneumonia (Acute) Dyspnea (Acute) COPD (chronic obstructive pulmonary disease) with acute bronchitis (Acute) COVID-19 long hauler (Acute) Adult failure to thrive (Acute) Failure to thrive in adult (Acute) Depression (Acute) Long COVID (Acute) Acute hypoxemic respiratory failure due to COVID-19 (Acute) Dysphagia (Acute) Pneumonia due to COVID-19 virus (Acute) Subthalamic lacunar stroke (Acute) Burn (Acute) Dizziness (Acute) Medicare annual wellness visit, initial (Acute) Insomnia (Acute) TIA (transient ischemic attack) (Acute) Choreoathetoid limb movements (Acute) NSTEMI (non-ST elevated myocardial infarction) (Acute) CAD (coronary artery disease) (Acute) Peripheral neuropathy (Chronic) Encounter for Medicare annual wellness exam (Chronic) Tobacco abuse (Chronic) Breast cyst (Chronic ~1994) Bilateral carotid bruits (Chronic) Atherosclerosis (Chronic) Allergic rhinitis (Chronic) HPV (human papilloma virus) infection (Chronic ~2004) Hyperlipidemia (Chronic ~2009) Hypertension, essential (Chronic ~1995) Anxiety (Chronic ~1985) Medical History Allergic rhinitis Anxiety (~1985) Atherosclerosis both carotid arteries Bilateral carotid bruits Breast cyst (~1994) Burn Depression Encounter for Medicare annual wellness exam Failure to thrive in adult HPV (human papilloma virus) infection (~2004) Hyperlipidemia (~2009) Hypertension, essential (~1995) Long COVID Medicare annual wellness visit, initial Tobacco abuse Surgical History H/O colonoscopy 06/06 Dr. Sharma H/O: hysterectomy 1985 History of cataract surgery 2014 History of surgery 2004 Cervical lesion Hx of tonsillectomy 1960 Family History Father Arthritis Bile duct cancer Mother Dementia Hypertension, essential Migraine Grandmother Seizures Paternal Social History Smoking Status: Current every day smoker Alcohol Intake Frequency: a few times a month Substance Use: does not use Exam Narrative Narrative: Narrative: General Limitations: physical limitation General appearance: Present alert and other (Breathing comfortably on O2. Appear weak) Eye Eye: Present normal appearance Respiratory Respiratory: Present decreased breath sounds and other Cardiovascular Cardiovascular: Present regular rate, normal rhythm and normal heart sounds Adbominal Abdominal: Present soft and normal bowel sounds; Absent tenderness or organomegaly Extremities Extremities: Present pedal edema; Absent cyanosis or clubbing Neurological Neurological: Present alert Course Course Course Narrative: Labs were ordered including CBC CMP COVID test urinalysis TSH BNP and lactic acid. Chest x-ray was ordered. Normal saline 500 mg IV was given. SoluMedrol 125 mg IV and Atrovent Nebulizer was given. Follow-up: Patient states chest x-ray shows right lower lung pneumonia. Patient was given levofloxacin 500 mg IV. Patient will be admitted here for further treatment and care Vital Signs Vital signs: Vital Signs Temperature 96.7 F L 04/25/22 07:22 Pulse Rate 84 04/25/22 07:22 Respiratory Rate 24 H 04/25/22 07:22 Blood Pressure 147/75 04/25/22 07:22 Pulse Oximetry (%) 75 L 04/25/22 07:22 Oxygen Delivery Method 04/25/22 07:22 Temperature 97.0 F 04/28/22 23:30 Pulse Rate 92 H 04/29/22 04:00 Respiratory Rate 12 04/29/22 04:00 Blood Pressure 146/63 04/29/22 04:00 Pulse Oximetry (%) 93 04/29/22 07:19 Oxygen Delivery Method 04/29/22 07:19 Oxygen Flow Rate (L/min) 1.5 04/29/22 07:19 MDM MDM Narrative Medical decision making narrative: Narrative: Lab Data Result diagrams: 04/28/22 05:35 04/28/22 05:35 Labs: Lab Results 04/25/22 04/25/22 04/25/22 Range/Units 08:05 08:05 08:05 WBC 9.5 (4.5-11.0) K/mcL RBC 5.16 (3.59-5.38) M/mcL Hgb 15.6 (11.2-15.7) g/dL Hct 48.5 H (34.1-44.9) % MCV 94.0 (80.0-100.0) fL MCH 30.2 (26.0-34.0) pg MCHC 32.2 (31.0-36.0) g/dL RDW 12.7 (11.5-14.5) % Plt Count 286 (140-440) K/mcL MPV 11.2 H (7.4-10.4) fL Seg Neutrophils % 82 H (38-78) % Lymphocytes % 11 L (15-49) % Monocytes % (Manual) 7 (1-12) % Platelet Estimate Normal (Normal) RBC Morphology Normal (Normal) VBG Lactic Acid 1.1 (0.5-2.0) mmol/L Sodium 135 (133-145) mmol/L Potassium 3.4 (3.3-5.1) mmol/L Chloride 94 L (96-108) mmol/L Carbon Dioxide 26 (22-30) mmol/L Anion Gap 15.0 (8.0-16.0) BUN 19 (8-23) mg/dL Creatinine 0.9 (0.6-1.1) mg/dL GFR Calculation 63 Glucose 120 H (70-105) mg/dL Calcium 10.8 H (8.6-10.4) mg/dL Total Bilirubin 0.3 (0.1-1.0) mg/dL AST 20 (<32) U/L ALT 11 (<40) U/L Alkaline Phosphatase 64 (39-117) U/L Troponin T (<0.03) ng/mL NT-Pro-B Natriuret Pep 78.4 (<125.0) pg/mL Total Protein 7.6 (5.9-8.4) gm/dL Albumin 4.5 (3.2-5.2) gm/dL Globulin 3.1 (2.2-3.7) gm/dL Albumin/Globulin Ratio 1.5 (1.0-2.3) Procalcitonin 0.11 H (<0.10) ng/mL TSH 0.97 (0.27-5.01) uIU/mL Urine Color Urine Appearance (Clear) Urine pH (5.0-9.0) Ur Specific [place] (1.000-1.035) Urine Protein (Negative) mg/dL Urine Glucose (UA) (Negative) mg/dL Urine Ketones (Negative) mg/dL Urine Occult Blood (Negative) mg/dL Urine Nitrate (Negative) Urine Bilirubin (Negative) mg/dL Urine Urobilinogen mg/dL Ur Leukocyte Esterase (Negative) /uL Urine RBC (0-3) /hpf Urine WBC (0-4) /hpf Ur Squamous Epith Cells (0-4) /hpf Amorphous Crystals (None) /hpf Urine Bacteria (0) /hpf Hyaline Casts (0-2) /lph Urine Mucus (None) /hpf Ur Culture Indicated? 04/25/22 04/25/22 Range/Units 08:06 08:48 WBC (4.5-11.0) K/mcL RBC (3.59-5.38) M/mcL Hgb (11.2-15.7) g/dL Hct (34.1-44.9) % MCV (80.0-100.0) fL MCH (26.0-34.0) pg MCHC (31.0-36.0) g/dL RDW (11.5-14.5) % Plt Count (140-440) K/mcL MPV (7.4-10.4) fL Seg Neutrophils % (38-78) % Lymphocytes % (15-49) % Monocytes % (Manual) (1-12) % Platelet Estimate (Normal) RBC Morphology (Normal) VBG Lactic Acid (0.5-2.0) mmol/L Sodium (133-145) mmol/L Potassium (3.3-5.1) mmol/L Chloride (96-108) mmol/L Carbon Dioxide (22-30) mmol/L Anion Gap (8.0-16.0) BUN (8-23) mg/dL Creatinine (0.6-1.1) mg/dL GFR Calculation Glucose (70-105) mg/dL Calcium (8.6-10.4) mg/dL Total Bilirubin (0.1-1.0) mg/dL AST (<32) U/L ALT (<40) U/L Alkaline Phosphatase (39-117) U/L Troponin T < 0.01 (<0.03) ng/mL NT-Pro-B Natriuret Pep (<125.0) pg/mL Total Protein (5.9-8.4) gm/dL Albumin (3.2-5.2) gm/dL Globulin (2.2-3.7) gm/dL Albumin/Globulin Ratio (1.0-2.3) Procalcitonin (<0.10) ng/mL TSH (0.27-5.01) uIU/mL Urine Color Yellow Urine Appearance Hazy A (Clear) Urine pH 6.0 (5.0-9.0) Ur Specific [place] 1.014 (1.000-1.035) Urine Protein 30 A (Negative) mg/dL Urine Glucose (UA) Negative (Negative) mg/dL Urine Ketones 5 A (Negative) mg/dL Urine Occult Blood Negative (Negative) mg/dL Urine Nitrate Negative (Negative) Urine Bilirubin Negative (Negative) mg/dL Urine Urobilinogen 2.0 A mg/dL Ur Leukocyte Esterase Negative (Negative) /uL Urine RBC 1 (0-3) /hpf Urine WBC 2 (0-4) /hpf Ur Squamous Epith Cells 11 H (0-4) /hpf Amorphous Crystals Few A (None) /hpf Urine Bacteria None (0) /hpf Hyaline Casts 4 H (0-2) /lph Urine Mucus Mod A (None) /hpf Ur Culture Indicated? No ED POC Tests ED POC Tests: [place] - Influenza A Negative [place] - Influenza B Negative [place] - SARS Antigen Negative Discharge Plan Patient/Caregiver Discharge Instructions Pt seen by [facility] [employer] TENDER/PA only: No Clinical Impression: Acute exacerbation of chronic obstructive pulmonary disease, Pneumonia, Abnormal weight loss Activity: increase activity as tolerated Patient Disposition: Xfer As Inpt ([facility]) Condition: Serious Discharge Date/Time: 04/25/22 11:00
[2022-04-25 09:18] LABS: proBNP 78.4 pg/mL (<125.0)
[2022-04-25 09:29] LABS: ALT/SGPT 11 U/L (<40); AST/SGOT 20 U/L (<32); Albumin 4.5 gm/dL (3.2-5.2); Albumin/Globulin Ratio 1.5 (1.0-2.3); Alkaline Phosphatase 64 U/L (39-117); Bilirubin,Total 0.3 mg/dL (0.1-1.0); Blood Urea Nitrogen 19 mg/dL (8-23); Calcium 10.8 mg/dL (8.6-10.4); Carbon Dioxide 26 mmol/L (22-30); Chloride 94 mmol/L (96-108); Globulin 3.1 gm/dL (2.2-3.7); Glomerular Filtration Rate 63; Glucose 120 mg/dL (70-105); Thyroid Stimulating Hormone 0.97 uIU/mL (0.27-5.01)
[2022-04-25 09:49] LABS: Lymphocytes % 11 % (15-49); Monocytes % (Manual) 7 % (1-12); Platelet Estimate NORMAL (Normal); RBC Morphology NORMAL (Normal); Segmented Neutrophils % 82 % (38-78)
[2022-04-25 10:13] LABS: Appearance,Urine HAZY (Clear); Bilirubin,Urine Negative (Negative); Color,Urine YELLOW; Culture Indicated,Urine No; Glucose,Urine (UA) Negative (Negative); Ketones,Urine 5 mg/dL (Negative); Leukocyte Esterase,Urine Negative /uL (Negative); Mucus,Urine MOD /hpf; Nitrate,Urine Negative (Negative); Protein,Urine 30 mg/dL (Negative); Specific Gravity,Urine 1.014 (1.000-1.035); Urine Amorphous Crystals FEW /hpf; Urine Blood Negative (Negative); Urine Hyaline Cast 4 /lph (0-2); Urine RBC 1 /hpf (0-3); Urine Squamous Epithelial Cell 11 /hpf (0-4); Urine WBC 2 /hpf (0-4)
--- NOTE | 2022-04-25 10:30 | Internal Med History&Physical ---
HPI History of Present Illness Patient information: Note initiated : 04/25/22 at 10:16 am Service Date, if different from initiated Date: [] Patient: Loni Dasilva a 71 y/o F admitted on for shortness of breath, hypoxia. Chief Complaint: [] History of present illness: Ms. Dasilva is a 71 year old F Presents to the ED with increasing weakness and shortness of breath. He was noted to be hypoxic and so her shearing machine operator brought her in. Is like she was 75% on room air. They have been trying to get home oxygen but have been unable to get appointment with the primary care doctor between hospital admissions. Her son provides most of the history says she has been declining significantly since she had COVID last fall. She is lost 45 pounds since then. Decreased appetite. She has a weak cough. She also reports increased cough with eating and drinking. She does see a speech therapist. She was in the ED about 6 days ago and given prednisone short course. Chest x-ray in the ED showed mild right lower lobe infiltrate. Labs show hypokalemia. Rapid flu and COVID in the ED negative. Since her hospitalization last fall for COVID-pneumonia requiring ICU level care. He also has been admitted this last January for aspiration pneumonia and failure to thrive and electrolyte imbalance. 4 day admission. Review of Systems: Pertinent positives as above. Denies headache/fever/chills/nausea/vomiting/chest or abdominal pain/diarrhea. Remaining 10 point review of system reviewed negative PFSH PFSH All Active Problems (Updated 04/25/22 @ 09:19 by Joe Tinoco MD) Acute dyspnea (Acute) Acute exacerbation of chronic obstructive pulmonary disease (COPD) (Acute) Acute dehydration (Acute) Acute hypokalemia (Acute) Acute exacerbation of chronic obstructive pulmonary disease (Acute) Pneumonia (Acute) Abnormal weight loss (Acute) At risk for aspiration pneumonia (Acute) History of stroke (Acute) Hypokalemia (Acute) Aspiration pneumonia (Acute) Dyspnea (Acute) COPD (chronic obstructive pulmonary disease) with acute bronchitis (Acute) COVID-19 long hauler (Acute) Adult failure to thrive (Acute) Failure to thrive in adult (Acute) Depression (Acute) Long COVID (Acute) Acute hypoxemic respiratory failure due to COVID-19 (Acute) Dysphagia (Acute) Pneumonia due to COVID-19 virus (Acute) Subthalamic lacunar stroke (Acute) Burn (Acute) Dizziness (Acute) Medicare annual wellness visit, initial (Acute) Insomnia (Acute) TIA (transient ischemic attack) (Acute) Choreoathetoid limb movements (Acute) NSTEMI (non-ST elevated myocardial infarction) (Acute) CAD (coronary artery disease) (Acute) Peripheral neuropathy (Chronic) Encounter for Medicare annual wellness exam (Chronic) Tobacco abuse (Chronic) Breast cyst (Chronic ~1994) Bilateral carotid bruits (Chronic) Atherosclerosis (Chronic) Allergic rhinitis (Chronic) HPV (human papilloma virus) infection (Chronic ~2004) Hyperlipidemia (Chronic ~2009) Hypertension, essential (Chronic ~1995) Anxiety (Chronic ~1985) Medical History Allergic rhinitis Anxiety (~1985) Atherosclerosis both carotid arteries Bilateral carotid bruits Breast cyst (~1994) Burn Depression Encounter for Medicare annual wellness exam Failure to thrive in adult HPV (human papilloma virus) infection (~2004) Hyperlipidemia (~2009) Hypertension, essential (~1995) Long COVID Medicare annual wellness visit, initial Tobacco abuse Surgical History H/O colonoscopy 06/06 Dr. Sharma H/O: hysterectomy 1984 History of cataract surgery 2014 History of surgery 2004 Cervical lesion Hx of tonsillectomy 1960 Family History Father Arthritis Bile duct cancer Mother Dementia Hypertension, essential Migraine Grandmother Seizures Paternal Social History marital status: other: Children-2 alcohol intake frequency: a few times a month substance use type: does not use MEDS/ALLERGIES Home Medications and Allergies Home Medications Medication Instructions Recorded Confirmed Type multivitamin 1 tab PO QHS 08/09/17 04/13/22 History vitamin E (dl, acetate) 450 mg 1,000 unit PO QHS 08/09/17 04/13/22 History (1,000 unit) capsule fluticasone propionate 50 1 spray INTRANASAL QDAY #15.8 ml 10/04/20 04/13/22 Rx mcg/actuation nasal spray,suspension (Flonase Allergy Relief) aspirin 81 mg tablet,delayed 81 mg PO QHS 10/05/20 04/13/22 History release evening primrose oil 500 mg capsule 1,000 mg PO QHS cap 10/05/20 04/13/22 History cholecalciferol (vitamin D3) 50 50 mcg PO QDAY #90 cap 05/04/21 04/13/22 Rx mcg (2,000 unit) capsule mecobalamin (vitamin B12) 1,000 1,000 mcg PO QDAY #90 tab 05/04/21 04/13/22 Rx mcg chewable tablet magnesium 250 mg tablet 500 mg PO QHS tab 07/19/21 04/13/22 History omega 3-qkn-kjn-fish oil 900 1 cap PO BID cap 07/19/21 04/13/22 History mg-1,400 mg capsule,delayed release (Fish Oil) metoclopramide HCl 5 mg tablet 5 mg PO QAC #30 tab 11/23/21 04/13/22 Rx losartan 50 mg tablet 50 mg PO QDAY #100 tab 01/09/22 04/13/22 Rx estradiol cypionate 5 mg/mL 5 mg IM Q4W #5 ml 01/30/22 04/13/22 Rx intramuscular oil (Depo-Estradiol) nebulizer and compressor #1 ea 01/31/22 04/13/22 Rx calcium carb-ergocalciferol (vit 1 tab PO QDAY 02/06/22 04/13/22 History D2) 600 mg calcium-200 unit tablet cetirizine 10 mg capsule (Zyrtec) 10 mg PO QDAY 02/06/22 04/13/22 History coQ10 (ubiquinol) 100 mg capsule 100 mg PO DAILY 02/06/22 04/13/22 History escitalopram oxalate 10 mg tablet 10 mg PO QDAY #90 tab 03/15/22 04/13/22 Rx mirtazapine 7.5 mg tablet 7.5 mg PO QDAY #30 tab 03/15/22 04/13/22 Rx amlodipine 10 mg tablet 10 mg PO QDAY #90 tab 04/06/22 04/13/22 Rx clopidogrel 75 mg tablet (Plavix) 75 mg PO QDAY #90 tab 04/06/22 04/13/22 Rx fenofibrate 54 mg tablet 54 mg PO QDAY #90 tab 04/06/22 04/13/22 Rx benzonatate 100 mg capsule 100 mg PO TID PRN #20 cap 04/19/22 Rx prednisone 50 mg tablet 50 mg PO QDAY #5 tab 04/19/22 Rx albuterol sulfate 2.5 mg (3 mL) INHALATION QID PRN 04/21/22 Rx #180 ml Allergies Allergy/AdvReac Type Severity Reaction Status Date / Time red dye Allergy Mild Hives Verified 04/25/22 07:24 clavulanic acid AdvReac Intermediate Diarrhea, Verified 04/25/22 07:24 [From Augmentin] severe pain gabapentin AdvReac Intermediate Dizziness, Verified 04/25/22 07:24 lightheaded hydromorphone [From Dilaudid] AdvReac Intermediate Fever, Verified 04/25/22 07:24 seizure like activity Nortriptyline AdvReac Intermediate Hair loss Verified 04/25/22 07:24 Gmdeoxu-MTB-IhU Reductase AdvReac Intermediate Diarrhea, Verified 04/25/22 07:24 Inhibitor Vision [Txxendj-Pci-Yqo Reductase changes Inhibitor] MERT Inhibitors AdvReac Mild Diarrhea Verified 04/25/22 07:24 amlodipine AdvReac Mild Diarrhea Verified 04/25/22 07:24 Amoxicillin [From Augmentin] AdvReac Mild Diarrhea, Verified 04/25/22 07:24 severe pain rosuvastatin AdvReac Mild muscle Verified 04/25/22 07:24 cramps, weakness simvastatin AdvReac Mild Diarrhea Verified 04/25/22 07:24 EXAM Constitutional Vitals: Temp Pulse Resp BP Pulse Ox 96.7 F L 102 H 23 H 142/81 92 04/25/22 07:22 04/25/22 09:54 04/25/22 09:54 04/25/22 09:31 04/25/22 09:54 Exam: General: Alert, Awake, No acute Distress, frail/cachectic Eyes/N/T: EOMI, PERRL, dry MM Head/Neck: neck supple, normocephalic atraumatic CV: RRR, No murmurs, normal s1/s2 Pulm: Mild rales/rhonchi b/l, no wheezing Abd: soft, nontender, +BS x4 Ext: no clubbing/cyanosis/edema Neuro: Alert, no focal deficits, moves all extremities, CN 2-12 grossly intact, symmetrical strength b/l upper/lower, sensations intact b/l upper/lower Skin: warm/dry DATA Data Completed and Pending Labs: Labs from last 24 hours 04/25/22 04/25/22 04/25/22 08:48 08:06 08:05 WBC RBC Hgb Hct MCV MCH MCHC RDW Plt Count MPV Seg Neutrophils % Lymphocytes % Monocytes % (Manual) Platelet Estimate RBC Morphology VBG Lactic Acid 1.1 Sodium 135 Potassium 3.4 Chloride 94 L Carbon Dioxide 26 Anion Gap 15.0 BUN 19 Creatinine 0.9 GFR Calculation 63 Glucose 120 H Calcium 10.8 H Total Bilirubin 0.3 AST 20 ALT 11 Alkaline Phosphatase 64 Troponin T < 0.01 NT-Pro-B Natriuret Pep 78.4 Total Protein 7.6 Albumin 4.5 Globulin 3.1 Albumin/Globulin Ratio 1.5 TSH 0.97 Urine Color Yellow Urine Appearance Hazy A Urine pH 6.0 Ur Specific [place] 1.014 Urine Protein 30 A Urine Glucose (UA) Negative Urine Ketones 5 A Urine Occult Blood Negative Urine Nitrate Negative Urine Bilirubin Negative Urine Urobilinogen 2.0 A Ur Leukocyte Esterase Negative Urine RBC 1 Urine WBC 2 Ur Squamous Epith Cells 11 H Amorphous Crystals Few A Urine Bacteria None Hyaline Casts 4 H Urine Mucus Mod A Ur Culture Indicated? No 04/25/22 08:05 WBC 9.5 RBC 5.16 Hgb 15.6 Hct 48.5 H MCV 94.0 MCH 30.2 MCHC 32.2 RDW 12.7 Plt Count 286 MPV 11.2 H Seg Neutrophils % 82 H Lymphocytes % 11 L Monocytes % (Manual) 7 Platelet Estimate Normal RBC Morphology Normal VBG Lactic Acid Sodium Potassium Chloride Carbon Dioxide Anion Gap BUN Creatinine GFR Calculation Glucose Calcium Total Bilirubin AST ALT Alkaline Phosphatase Troponin T NT-Pro-B Natriuret Pep Total Protein Albumin Globulin Albumin/Globulin Ratio TSH Urine Color Urine Appearance Urine pH Ur Specific [place] Urine Protein Urine Glucose (UA) Urine Ketones Urine Occult Blood Urine Nitrate Urine Bilirubin Urine Urobilinogen Ur Leukocyte Esterase Urine RBC Urine WBC Ur Squamous Epith Cells Amorphous Crystals Urine Bacteria Hyaline Casts Urine Mucus Ur Culture Indicated? A/P Narrative A/P Narrative: A: *PNA (RLL), possible aspiration PNA: *Acute hypoxic on likely chronic respiratory failure: -Family has been trying to get outpatient oxygen set up. *FTT/severe protein calorie malnutrition: Muscle and subcutaneous fat loss/diminished functional status -progressive decline since COVID-pneumonia last fall *Electrolyte d/o: *h/o CVA's: on plavix/asa per [facility] for intracerebral stenosis *h/o CAD w/stent: follows with Dr. Villasenor -on asa/plavix/fenofibrate *CKD II: improved with IVF *HTN: on ARB P: -Rocephin/azithromycin -O2 supp, wean as able -IS/Acapella -ST eval -IVF -CT chest further evaluate pulmonary parenchyma s/p covid and continued hypoxia -Monitor and replace electrolytes -Dietary consult -Continue home asa/plavix, norvasc/ARB -PT/OT -CM for placement -Home medication reconciliation -ppx: lovenox DNR Time Spent With Patient Time: Total time spent is greater than 50% in coordination of care (as documented) at patient's floor/unit and/or counseling patient: Total time spent with greater than 50% in coordination of care (as documented) at patient's floor/unit and/or counseling patient:: Greater than 70 minutes
[2022-04-25] MEDS ORDERED: POTASSIUM CHLORIDE 40 MEQ in DEXTROSE 5% IN WATER 500 ML IV PRN (12:00)
[2022-04-25] MEDS ORDERED: POTASSIUM CHLORIDE 20 MEQ TABLET PO PRN ×2 (12:00)
[2022-04-25] MEDS ORDERED: SENNOSIDES 1 TABLET PO PRN (12:00)
[2022-04-25] MEDS ORDERED: IPRATROPIUM/ALBUTEROL 3 ML AMPUL.NEB NEB PRN (12:00)
[2022-04-25] MEDS ORDERED: POLYETHYLENE GLYCOL 3350 17 GM PACKET PO PRN (12:00)
[2022-04-25] MEDS ORDERED: MAGNESIUM SULFATE 2 GM/50 ML BAG IV PRN (12:00)
[2022-04-25] MEDS ORDERED: ONDANSETRON 4 MG/2 ML VIAL IV PRN (12:00)
[2022-04-25] MEDS ORDERED: 0.9 % SODIUM CHLORIDE 1,000 ML IV ONE (12:00)
[2022-04-25] MEDS: cefTRIAXone 2 GM in DEXTROSE 5% IN WATER 50 ML IV SCH (12:42)
[2022-04-25] MEDS: ACETAMINOPHEN 325 MG TABLET PO PRN (12:43)
--- NOTE | 2022-04-25 12:44 | Cat Scan Report ---
INDICATION: hypoxia, history of covid last Fall COMPARISON: Chest x-ray dated 04/25/2022, 04/19/2022, 04/13/2022 TECHNIQUE: Axial noncontrast enhanced images through the chest. Sagittally and coronally reformatted images. MIP reformatted images. FINDINGS: Lungs:There is sanchez lobar emphysema. There is upper lobe predominance consistent with smoking history. There is hypoexpansion of the lower lobes which may be due to upper lobe air trapping. There is parenchymal density in both lower lobes consistent with atelectasis. Is not excluded. Follow-up examinations are recommended. Mediastinum, vascular:No mediastinal or hilar adenopathy. There is calcification of the thoracic aorta. No aneurysmal dilatation. Heart:There is mild cardiomegaly. There is coronary artery calcification. Pleura:No significant pleural effusion. Axilla, supraclavicular regions, chest wall:No pathologic axillary or supraclavicular adenopathy. This patient is cachectic. Musculoskeletal:No thoracic compression fractures. No lytic lesions. No sternal or rib lesions Upper Abdomen: Poorly visualized due to lack of intra-abdominal and subcutaneous fat. Negative to the limits of noncontrast enhanced examination IMPRESSION: 1. Sanchez lobar emphysema with upper lobe predominance 2. Bilateral lower lobe volume loss. Lower lobe pneumonia is possible. Clinical correlation follow-up evaluation is recommended 3. Cachexia The exam was performed using radiation dose optimization techniques including, but not limited to, automated exposure control, adjustment of the mA and/or kV according to patient size and use of iterative reconstruction technique. Interpreted and Authenticated by: Armando Mcintyre 04/25/22
[2022-04-25] MEDS: AZITHROMYCIN 500 MG in DEXTROSE 5% IN WATER 250 ML IV SCH (14:17)
[2022-04-25] MEDS: 0.9 % SODIUM CHLORIDE 10 ML SYRINGE IV SCH ×2 (14:18→22:05)
--- NOTE | 2022-04-25 15:52 | XRay Report ---
INDICATION: dobhoff placement TECHNIQUE: Supine abdomen. COMPARISON: None FINDINGS:Metallic tipped feeding tube in the stomach. The catheter is curled with the tip directed cephalad in the gastric fundus. IMPRESSION: Feeding tube in the stomach as above Interpreted and Authenticated by: Armando Mcintyre 04/25/22
[2022-04-25] MEDS ORDERED: BENZONATATE 100 MG CAPSULE PO PRN (17:22)
[2022-04-25] MEDS: METOCLOPRAMIDE 10 MG TABLET PO SCH (17:48)
[2022-04-25] MEDS: DOCUSATE SODIUM 100 MG CAPSULE PO SCH (22:42)
[2022-04-25] MEDS: MIRTAZAPINE 15 MG TABLET PO SCH (22:42)
[2022-04-25] MEDS: HYDROcodone/APAP 5/325MG TABLET PO PRN (22:43)
[2022-04-26] MEDS: 0.9 % SODIUM CHLORIDE 10 ML SYRINGE IV SCH ×3 (05:37→21:39)
--- NOTE | 2022-04-26 06:15 | XRay Report ---
INDICATION: NGT/feeding tube placement TECHNIQUE: Supine abdomen. COMPARISON: Previous examination dated 04/25/2022 FINDINGS:Metallic tip feeding tube has been removed. There is an esophagogastric tube with its tip in the body of the stomach. Sidehole of the catheter is below the level of the diaphragm. On gas pattern is unremarkable. There is gas and fecal material within the colon. There is small bowel gas without significant dilatation. IMPRESSION: Esophagogastric tube in stomach Interpreted and Authenticated by: Armando Mcintyre 04/26/22
[2022-04-26 06:48] LABS: Basophils # (Auto) 0.01 K/mcL (0.00-0.30); Basophils % (Auto) 0.1 % (0.0-2.0); Eosinophils # (Auto) 0 K/mcL (0.00-0.70); Eosinophils % (Auto) 0 % (0.0-7.0); Hematocrit 43.5 % (34.1-44.9); Hemoglobin 13.7 g/dL (11.2-15.7); Lymphocytes # (Auto) 1.04 K/mcL (1.50-4.80); Lymphocytes % (Auto) 9.5 % (15.5-49.0); Mean Cell Volume 97.1 fL (80.0-100.0); Mean Corpuscular HGB Conc 31.5 g/dL (31.0-36.0); Mean Platelet Volume 11.1 fL (7.4-10.4); Monocytes # (Auto) 1.09 K/mcL (0.10-0.90); Neutrophils % (Auto) 79.9 % (38.0-78.0); Platelet Count 236 K/mcL (140-440); RBC 4.48 M/mcL (3.59-5.38); Red Cell Distribution Width 12.6 % (11.5-14.5); WBC 10.9 K/mcL (4.5-11.0)
[2022-04-26 07:18] LABS: ALT/SGPT 12 U/L (<40); AST/SGOT 19 U/L (<32); Albumin 3.7 gm/dL (3.2-5.2); Albumin/Globulin Ratio 2.3 (1.0-2.3); Alkaline Phosphatase 46 U/L (39-117); Bilirubin,Direct < 0.2 mg/dL (0-0.3); Bilirubin,Total 0.2 mg/dL (0.1-1.0); Blood Urea Nitrogen 15 mg/dL (8-23); Calcium 9.6 mg/dL (8.6-10.4); Carbon Dioxide 35 mmol/L (22-30); Chloride 103 mmol/L (96-108); Globulin 1.6 gm/dL (2.2-3.7); Glomerular Filtration Rate 114; Glucose 85 mg/dL (70-105); Lactate Dehydrogenase 216 U/L (135-225); Phosphorous 2.2 mg/dL (2.5-4.5); Triglycerides 97 mg/dL (<150)
--- NOTE | 2022-04-26 08:08 | Internal Med Progress Note ---
SUBJECTIVE Subjective Patient information: Note initiated : 04/26/22 at 8:01 am Service Date, if different from initiated Date: [] Patient: Loni Dasilva a 71 y/o F admitted on 04/25/22 for shortness of breath, hypoxia. Chief Complaint: [] Interval history: History of present illness: Ms. Dasilva is a 71 year old F Presents to the ED with increasing weakness and shortness of breath. He was noted to be hypoxic and so her awning erector brought her in. Is like she was 75% on room air. They have been trying to get home oxygen but have been unable to get appointment with the primary care doctor between hospital admissions. Her son provides most of the history says she has been declining significantly since she had COVID last fall. She is lost 45 pounds since then. Decreased appetite. She has a weak cough. She also reports increased cough with eating and drinking. She does see a speech therapist. She was in the ED about 6 days ago and given prednisone short course. Chest x-ray in the ED showed mild right lower lobe infiltrate. Labs show hypokalemia. Rapid flu and COVID in the ED negative. Since her hospitalization last fall for COVID-pneumonia requiring ICU level care. He also has been admitted this last January for aspiration pneumonia and failure to thrive and electrolyte imbalance. 4 day admission. 7/ Patient extremely weak and seems to take effort to verbalize. Patient has headache some cough and shortness of breath. No overnight events. She was seen by speech therapist who recommended some supplemental nutrition at this time and Dobbhoff was placed but patient pulled it out and then was willing to have it placed back in. Sounds like home health was considering recommendation for hospice. Will need to have a care conference. Review of Systems: denies fever/chills/nausea/vomiting/chest or abdominal pain/diarrhea. Otherwise see above. Constitutional Vitals: Vital Signs Temp Pulse Resp BP Pulse Ox 98.0 F 93 H 20 166/74 94 04/26/22 03:59 04/26/22 03:59 04/26/22 03:59 04/26/22 03:59 04/26/22 03:59 Period Temp Pulse Resp BP Sys/Wright Pulse Ox Last 24 Hr 97.2 F-98.1 F 76-102 14-26 134-166/67-103 90-96 Intake and Output 07/05/22 07/06/22 07/06/22 21:59 05:59 13:59 Intake Total 902 057 4555 Output Total 176 400 100 Balance 124 60 900 Weight 40.143 kg Intake & Output: Intake & Output 04/25/22 04/26/22 04/26/22 21:59 05:59 13:59 Intake Total 662 329 4564 Output Total 176 400 100 Balance 124 60 900 Weight 40.143 kg Intake: IV 300 1000 Sodium Chloride 0.9% 1,000 ml @ 1000 55 mls/hr IV .[id number] [facility] Rx#: [id number] Zithromax 500 mg In Dextrose 5% 250 in Water 250 ml @ 250 mls/hr IV Q24H [facility] Rx#:[id number] Rocephin 2 gm In Dextrose 5% in 50 Water 50 ml @ 100 mls/hr IV Q24H [facility] Rx#:[id number] Oral 0 0 Tube Feeding 240 GI Tube Flush 100 NG Tube Flush 120 Right Nare 120 Output: Void Amount 175 400 100 # of times incontinent of urine 1 0 Other: Urine Appearance Clear Clear Clear Urine Color Bright Yellow Bright Yellow Bright Yellow # Voids 0 # Bowel Movements 0 0 # of times incontinent of 0 0 Bowels Exam: General: Awake, No acute Distress, frail/cachectic, extremely weak Eyes/N/T: EOMI, Head/Neck: neck supple, CV: RRR, No murmurs, Pulm: diminished BS b/l, no wheezing Abd: soft, nontender, +BS x4 Ext: no clubbing/cyanosis/edema Neuro: Alert, no focal deficits, moves all extremities, Skin: warm/dry OBJ DATA Labs CBC & Chem 7: 04/26/22 05:33 04/26/22 05:33 Labs: Abnormal Lab Results 04/26/22 04/26/22 04/25/22 05:33 05:33 08:48 Hct MPV 11.1 H Neut % (Auto) 79.9 H Lymph % (Auto) 9.5 L Lymph # (Auto) 1.04 L Bennett # (Auto) 1.09 H Seg Neutrophils % Lymphocytes % Absolute Neutrophils 8.80 H Potassium 2.7 L* Chloride Carbon Dioxide 35 H Anion Gap 4.0 L Creatinine 0.3 L Glucose Calcium Phosphorus 2.2 L Total Protein 5.3 L Globulin 1.6 L Procalcitonin Urine Appearance Hazy A Urine Protein 30 A Urine Ketones 5 A Urine Urobilinogen 2.0 A Ur Squamous Epith Cells 11 H Amorphous Crystals Few A Hyaline Casts 4 H Urine Mucus Mod A 04/25/22 04/25/22 04/25/22 08:05 08:05 08:05 Hct 48.5 H MPV 11.2 H Neut % (Auto) Lymph % (Auto) Lymph # (Auto) Bennett # (Auto) Seg Neutrophils % 82 H Lymphocytes % 11 L Absolute Neutrophils Potassium Chloride 94 L Carbon Dioxide Anion Gap Creatinine Glucose 120 H Calcium 10.8 H Phosphorus Total Protein Globulin Procalcitonin 0.11 H Urine Appearance Urine Protein Urine Ketones Urine Urobilinogen Ur Squamous Epith Cells Amorphous Crystals Hyaline Casts Urine Mucus Meds: Medications Acetaminophen (Acetaminophen 325 Mg Tablet) 650 mg PO Q6HP PRN; Protocol PRN Reason: Per Pain Protocol/Fever > 101 Last Admin: 04/25/22 12:43 Dose: 650 mg Documented by: Hydrocodone Bitart/Acetaminophen (Hydrocodone/Apap 5/325mg Tablet) 1 tab PO Q4- 6HP PRN; Protocol PRN Reason: Per Pain Protocol Last Admin: 04/25/22 22:43 Dose: 1 tab Documented by: Albuterol/Ipratropium (Ipratropium/Albuterol 3 Ml Ampul.Neb) 3 ml NEB Q4HP PRN PRN Reason: Shortness Of Breath Amlodipine Besylate (Amlodipine 10 Mg Tablet) 10 mg PO QDAY [facility] Benzonatate (Benzonatate 100 Mg Capsule) 100 mg PO TIDP PRN PRN Reason: cough Clopidogrel Bisulfate (Clopidogrel 75 Mg Tablet) 75 mg PO QDAY [facility] Docusate Sodium (Docusate Sodium 100 Mg Capsule) 100 mg PO BID [facility] Last Admin: 04/25/22 22:42 Dose: Not Given Documented by: Enoxaparin Sodium (Enoxaparin 40 Mg/0.4 Ml Syringe) 40 mg SQ DAILY [facility] Escitalopram Oxalate (Escitalopram 10 Mg Tablet) 10 mg PO QDAY [facility] Fenofibrate (Fenofibrate 43 Mg Capsule) 43 mg PO DAILY [facility] Potassium Chloride 40 meq/ (Dextrose) 520 mls @ 130 mls/hr IV UD PRN PRN Reason: Potassium < 3 Magnesium Sulfate (Magnesium Sulfate) 2 gm in 50 mls @ 50 mls/hr IV UD PRN PRN Reason: Magnesium </= 1.6 Ceftriaxone Sodium 2 gm/ (Dextrose) 50 mls @ 100 mls/hr IV Q24H [facility]; Protocol Last Infusion: 04/25/22 18:24 Dose: Infused Documented by: Azithromycin 500 mg/ Dextrose 250 mls @ 250 mls/hr IV Q24H [facility]; Protocol Stop: 04/27/22 13:59 Last Infusion: 04/25/22 18:24 Dose: Infused Documented by: Losartan Potassium (Losartan 50 Mg Tablet) 50 mg PO QDAY [facility] Metoclopramide HCl (Metoclopramide 10 Mg Tablet) 5 mg PO AC [facility] Last Admin: 04/25/22 17:48 Dose: Not Given Documented by: Mirtazapine (Mirtazapine 15 Mg Tablet) 7.5 mg PO HS [facility] Last Admin: 04/25/22 22:42 Dose: 7.5 mg Documented by: Ondansetron HCl (Ondansetron 4 Mg/2 Ml Vial) 4 mg IV Q4HP PRN PRN Reason: Nausea And Vomiting Polyethylene Glycol (Polyethylene Glycol 3350 17 Gm Packet) 17 gm PO DAILYP PRN PRN Reason: Constipation Potassium Chloride (Potassium Chloride 20 Meq Tablet) 40 meq PO UD PRN PRN Reason: Potssium is 3-3.5 Last Admin: 04/25/22 22:41 Dose: 40 meq Documented by: Potassium Chloride (Potassium Chloride 20 Meq Tablet) 40 meq PO UD PRN PRN Reason: Potassium < 3 Senna (Sennosides 1 Tablet) 2 tab PO DAILYP PRN PRN Reason: Constipation Sodium Chloride (0.9 % Sodium Chloride 10 Ml Syringe) 10 ml IV Q8 [facility] Last Admin: 04/26/22 05:37 Dose: Not Given Documented by: A/P Narrative A/P Narrative: A: *PNA (RLL), suspected aspiration PNA: *Oropharyngeal Dysphagia: diet per ST, will start TF's for now given poor oral intake and appetite/weight loss/muscle wasting. *Acute hypoxic on likely chronic respiratory failure: 2/2 above and underlying COPD *COPD(sanchez lobar): -Family has been trying to get outpatient home oxygen set up. *Volume depletion: *FTT/severe protein calorie malnutrition: Muscle and subcutaneous fat loss/ diminished functional status -progressive decline since COVID-pneumonia last fall *Electrolyte d/o (Hypokalemia): *h/o CVA's: on plavix/asa per [facility] for intracerebral stenosis *h/o CAD w/stent: follows with Dr. Villasenor -on asa/plavix/fenofibrate *CKD II: improved with IVF *HTN: on ARB *Goals of care P: -goals of care discussion, sounds like her home health team had broached hospice discussion -Rocephin/azithromycin -O2 supp, wean as able -IS/Acapella -ST eval, TF's in place for now -Monitor and replace electrolytes -Dietary consult -Continue home asa/plavix, norvasc/ARB -PT/OT -CM for placement -Home medication reconciliation -ppx: lovenox DNR Time Spent With Patient Time: Total time spent is greater than 50% in coordination of care (as documented) at patient's floor/unit and/or counseling patient: Total time spent with greater than 50% in coordination of care (as documented) at patient's floor/unit and/or counseling patient:: 25 - 35 minutes QUALITY VTE Deep Vein Thrombosis/Pulmonary Embolism Present on Admission: No
[2022-04-26] MEDS ORDERED: LABETALOL 5 MG/ML ML IV PRN (08:10)
[2022-04-26] MEDS: METOCLOPRAMIDE 10 MG TABLET PO SCH ×3 (09:06→17:05)
[2022-04-26] MEDS: ESCITALOPRAM 10 MG TABLET PO SCH (12:00)
[2022-04-26] MEDS: FENOFIBRATE 43 MG CAPSULE PO SCH (12:01)
[2022-04-26] MEDS: DOCUSATE SODIUM 100 MG CAPSULE PO SCH ×2 (12:01→21:31)
[2022-04-26] MEDS: amLODIPine 10 MG TABLET PO SCH (12:02)
[2022-04-26] MEDS: CLOPIDOGREL 75 MG TABLET PO SCH (12:02)
[2022-04-26] MEDS: ENOXAPARIN 40 MG/0.4 ML SYRINGE SQ SCH (12:03)
[2022-04-26] MEDS: LOSARTAN 50 MG TABLET PO SCH (12:03)
[2022-04-26] MEDS: AZITHROMYCIN 500 MG in DEXTROSE 5% IN WATER 250 ML IV SCH (13:28)
[2022-04-26] MEDS: cefTRIAXone 2 GM in DEXTROSE 5% IN WATER 50 ML IV SCH (14:36)
[2022-04-26] MEDS: HYDROcodone/APAP 5/325MG TABLET PO PRN ×2 (17:36→21:31)
[2022-04-26] MEDS: MIRTAZAPINE 15 MG TABLET PO SCH (21:32)
[2022-04-27] MEDS: 0.9 % SODIUM CHLORIDE 10 ML SYRINGE IV SCH ×3 (04:54→21:45)
[2022-04-27 07:43] LABS: ALT/SGPT 12 U/L (<40); AST/SGOT 17 U/L (<32); Albumin 3.4 gm/dL (3.2-5.2); Albumin/Globulin Ratio 1.9 (1.0-2.3); Alkaline Phosphatase 46 U/L (39-117); Bilirubin,Direct < 0.2 mg/dL (0-0.3); Bilirubin,Total 0.2 mg/dL (0.1-1.0); Blood Urea Nitrogen 9 mg/dL (8-23); Calcium 9.7 mg/dL (8.6-10.4); Carbon Dioxide 39 mmol/L (22-30); Chloride 100 mmol/L (96-108); Globulin 1.8 gm/dL (2.2-3.7); Glomerular Filtration Rate 130; Glucose 120 mg/dL (70-105); Lactate Dehydrogenase 183 U/L (135-225); Phosphorous 1.7 mg/dL (2.5-4.5); Triglycerides 95 mg/dL (<150); Uric Acid 2.3 mg/dL (2.5-8.0)
[2022-04-27] MEDS: METOCLOPRAMIDE 10 MG TABLET PO SCH ×3 (08:00→17:06)
[2022-04-27] MEDS ORDERED: PHOSPHORUS 250 MG TABLET PO ONE (08:05)
--- NOTE | 2022-04-27 08:08 | Internal Med Progress Note ---
SUBJECTIVE Subjective Patient information: Note initiated : 04/27/22 at 7:59 am Service Date, if different from initiated Date: [] Patient: Loni Dasilva a 71 y/o F admitted on 04/25/22 for shortness of breath, hypoxia. Chief Complaint: [] Interval history: History of present illness: Ms. Dasilva is a 71 year old F Presents to the ED with increasing weakness and shortness of breath. He was noted to be hypoxic and so her mfg assoc brought her in. Is like she was 75% on room air. They have been trying to get home oxygen but have been unable to get appointment with the primary care doctor between hospital admissions. Her son provides most of the history says she has been declining significantly since she had COVID last fall. She is lost 45 pounds since then. Decreased appetite. She has a weak cough. She also reports increased cough with eating and drinking. She does see a speech therapist. She was in the ED about 6 days ago and given prednisone short course. Chest x-ray in the ED showed mild right lower lobe infiltrate. Labs show hypokalemia. Rapid flu and COVID in the ED negative. Since her hospitalization last fall for COVID-pneumonia requiring ICU level care. He also has been admitted this last January for aspiration pneumonia and failure to thrive and electrolyte imbalance. 4 day admission. 04/26 Patient extremely weak and seems to take effort to verbalize. Patient has headache some cough and shortness of breath. No overnight events. She was seen by speech therapist who recommended some supplemental nutrition at this time and Dobbhoff was placed but patient pulled it out and then was willing to have it placed back in. Sounds like home health was considering recommendation for hospice. Will need to have a care conference. 04/27 Patient still very weak. Complains of back pain. We will try to adjust her in bed. Phosphorus low and will replete, Possible early stage of refeeding syndrome. Review of Systems: denies fever/chills/nausea/vomiting/chest or abdominal pain/diarrhea. Otherwise see above. Constitutional Vitals: Vital Signs Temp Pulse Resp BP Pulse Ox 98.0 F 79 14 141/68 96 04/27/22 03:05 04/27/22 03:05 04/27/22 03:05 04/27/22 03:05 04/27/22 03:05 Period Temp Pulse Resp BP Sys/Wright Pulse Ox Last 24 Hr 97.5 F-98.0 F 79-88 12-20 129-157/68-73 90-96 Intake and Output 04/26/22 04/27/22 04/27/22 21:59 05:59 13:59 Intake Total 2628 270 Output Total 0 226 Balance 2628 44 Weight 39.916 kg Intake & Output: Intake & Output 04/26/22 04/27/22 04/27/22 21:59 05:59 13:59 Intake Total 2628 270 Output Total 0 226 Balance 2628 44 Weight 39.916 kg Intake: Nourishment/Supplement quantity 400 (ml) IV 820 Zithromax 500 mg In Dextrose 5% 250 in Water 250 ml @ 250 mls/hr IV Q24H [facility] Rx#:[id number] Potassium Chloride 40 Meq In 520 Dextrose 5% in Water 500 ml @ 130 mls/hr IV UD PRN Rx#: [id number] Rocephin 2 gm In Dextrose 5% in 50 Water 50 ml @ 100 mls/hr IV Q24H [facility] Rx#:[id number] Oral 0 Tube Feeding 1208 240 GI Tube Flush 100 30 NG Tube Flush 100 Right Nare 100 Output: Gastric Drainage 0 Right Nare 0 Void Amount 225 # of times incontinent of urine 1 Other: Meal Nourishment/Supplement Feeding Ability Total Assistance Urine Appearance Clear Urine Color Bright Yellow # Voids 2 Exam: General: Awake, No acute Distress, frail/cachectic, extremely weak Eyes/N/T: EOMI, Head/Neck: neck supple, CV: RRR, No murmurs, Pulm: diminished BS b/l but better, no wheezing Abd: soft, nontender, +BS x4 Ext: no clubbing/cyanosis/edema Neuro: Alert, no focal deficits, moves all extremities, Skin: warm/dry OBJ DATA Labs CBC & Chem 7: 04/26/22 05:33 04/27/22 05:42 Labs: Abnormal Lab Results 04/27/22 04/26/22 04/26/22 05:42 05:33 05:33 Hct MPV 11.1 H Neut % (Auto) 79.9 H Lymph % (Auto) 9.5 L Lymph # (Auto) 1.04 L Hitchcock # (Auto) 1.09 H Seg Neutrophils % Lymphocytes % Absolute Neutrophils 8.80 H Potassium 2.7 L* Chloride Carbon Dioxide 39 H 35 H Anion Gap 4.0 L 4.0 L Creatinine 0.2 L 0.3 L Glucose 120 H Uric Acid 2.3 L Calcium Phosphorus 1.7 L 2.2 L Total Protein 5.2 L 5.3 L Globulin 1.8 L 1.6 L Procalcitonin Urine Appearance Urine Protein Urine Ketones Urine Urobilinogen Ur Squamous Epith Cells Amorphous Crystals Hyaline Casts Urine Mucus 04/25/22 04/25/22 04/25/22 08:48 08:05 08:05 Hct MPV Neut % (Auto) Lymph % (Auto) Lymph # (Auto) Hitchcock # (Auto) Seg Neutrophils % Lymphocytes % Absolute Neutrophils Potassium Chloride 94 L Carbon Dioxide Anion Gap Creatinine Glucose 120 H Uric Acid Calcium 10.8 H Phosphorus Total Protein Globulin Procalcitonin 0.11 H Urine Appearance Hazy A Urine Protein 30 A Urine Ketones 5 A Urine Urobilinogen 2.0 A Ur Squamous Epith Cells 11 H Amorphous Crystals Few A Hyaline Casts 4 H Urine Mucus Mod A 04/25/22 08:05 Hct 48.5 H MPV 11.2 H Neut % (Auto) Lymph % (Auto) Lymph # (Auto) Hitchcock # (Auto) Seg Neutrophils % 82 H Lymphocytes % 11 L Absolute Neutrophils Potassium Chloride Carbon Dioxide Anion Gap Creatinine Glucose Uric Acid Calcium Phosphorus Total Protein Globulin Procalcitonin Urine Appearance Urine Protein Urine Ketones Urine Urobilinogen Ur Squamous Epith Cells Amorphous Crystals Hyaline Casts Urine Mucus Meds: Medications Acetaminophen (Acetaminophen 325 Mg Tablet) 650 mg PO Q6HP PRN; Protocol PRN Reason: Per Pain Protocol/Fever > 101 Last Admin: 04/25/22 12:43 Dose: 650 mg Documented by: Hydrocodone Bitart/Acetaminophen (Hydrocodone/Apap 5/325mg Tablet) 1 tab PO Q4- 6HP PRN; Protocol PRN Reason: Per Pain Protocol Last Admin: 04/26/22 21:31 Dose: 1 tab Documented by: Albuterol/Ipratropium (Ipratropium/Albuterol 3 Ml Ampul.Neb) 3 ml NEB Q4HP PRN PRN Reason: Shortness Of Breath Amlodipine Besylate (Amlodipine 10 Mg Tablet) 10 mg PO QDAY [facility] Last Admin: 04/26/22 12:02 Dose: 10 mg Documented by: Benzonatate (Benzonatate 100 Mg Capsule) 100 mg PO TIDP PRN PRN Reason: cough Clopidogrel Bisulfate (Clopidogrel 75 Mg Tablet) 75 mg PO QDAY [facility] Last Admin: 04/26/22 12:02 Dose: 75 mg Documented by: Docusate Sodium (Docusate Sodium 100 Mg Capsule) 100 mg PO BID [facility] Last Admin: 04/26/22 21:31 Dose: Not Given Documented by: Enoxaparin Sodium (Enoxaparin 40 Mg/0.4 Ml Syringe) 40 mg SQ DAILY [facility] Last Admin: 04/26/22 12:03 Dose: 40 mg Documented by: Escitalopram Oxalate (Escitalopram 10 Mg Tablet) 10 mg PO QDAY [facility] Last Admin: 04/26/22 12:00 Dose: 10 mg Documented by: Fenofibrate (Fenofibrate 43 Mg Capsule) 43 mg PO DAILY [facility] Last Admin: 04/26/22 12:01 Dose: 43 mg Documented by: Potassium Chloride 40 meq/ (Dextrose) 520 mls @ 130 mls/hr IV UD PRN PRN Reason: Potassium < 3 Last Infusion: 04/26/22 14:34 Dose: Infused Documented by: Magnesium Sulfate (Magnesium Sulfate) 2 gm in 50 mls @ 50 mls/hr IV UD PRN PRN Reason: Magnesium </= 1.6 Ceftriaxone Sodium 2 gm/ (Dextrose) 50 mls @ 100 mls/hr IV Q24H [facility]; Protocol Last Infusion: 04/26/22 15:30 Dose: Infused Documented by: Azithromycin 500 mg/ Dextrose 250 mls @ 250 mls/hr IV Q24H [facility]; Protocol Stop: 04/27/22 13:59 Last Infusion: 04/26/22 14:34 Dose: Infused Documented by: Labetalol HCl (Labetalol 5 Mg/Ml Ml) 0 mg IV Q2HP PRN PRN Reason: Hypertension Losartan Potassium (Losartan 50 Mg Tablet) 50 mg PO QDAY [facility] Last Admin: 04/26/22 12:03 Dose: 50 mg Documented by: Metoclopramide HCl (Metoclopramide 10 Mg Tablet) 5 mg PO AC [facility] Last Admin: 04/26/22 17:05 Dose: Not Given Documented by: Mirtazapine (Mirtazapine 15 Mg Tablet) 7.5 mg PO [facility] Last Admin: 04/26/22 21:32 Dose: 7.5 mg Documented by: Ondansetron HCl (Ondansetron 4 Mg/2 Ml Vial) 4 mg IV Q4HP PRN PRN Reason: Nausea And Vomiting Polyethylene Glycol (Polyethylene Glycol 3350 17 Gm Packet) 17 gm PO DAILYP PRN PRN Reason: Constipation Potassium Chloride (Potassium Chloride 20 Meq Tablet) 40 meq PO UD PRN PRN Reason: Potssium is 3-3.5 Last Admin: 04/25/22 22:41 Dose: 40 meq Documented by: Potassium Chloride (Potassium Chloride 20 Meq Tablet) 40 meq PO UD PRN PRN Reason: Potassium < 3 Last Admin: 04/26/22 08:36 Dose: 40 meq Documented by: Senna (Sennosides 1 Tablet) 2 tab PO DAILYP PRN PRN Reason: Constipation Sodium Chloride (0.9 % Sodium Chloride 10 Ml Syringe) 10 ml IV Q8 [facility] Last Admin: 04/27/22 04:54 Dose: Not Given Documented by: A/P Narrative A/P Narrative: A: *PNA (RLL), suspected aspiration PNA: *Oropharyngeal Dysphagia: diet per ST, will start TF's for now given poor oral intake and appetite/weight loss/muscle wasting. *Acute hypoxic on likely chronic respiratory failure: 2/2 above and underlying COPD -on 2L with good sats *COPD(sanchez lobar): -Family has been trying to get outpatient home oxygen set up. *Volume depletion: *FTT/severe protein calorie malnutrition: Muscle and subcutaneous fat loss/diminished functional status -progressive decline since COVID-pneumonia last fall *Electrolyte d/o (Hypokalemia,hypophos): improved *possible early mild refeeding syndrome *h/o CVA's: on plavix/asa per [facility] for intracerebral stenosis *h/o CAD w/stent: follows with Dr. Villasenor -on asa/plavix/fenofibrate *CKD II: improved with IVF *HTN: on ARB *Goals of care: holding off on hospice at this time, pt to likely f/u outpt at some point P: -monitor for refeeding syndrome -replace phos -Rocephin/azithromycin -O2 supp, wean as able -IS/Acapella -diet per ST, TF's in place for now -Monitor and replace electrolytes -Dietary consult -Continue home asa/plavix, norvasc/ARB -PT/OT -CM for placement -ppx: lovenox DNR Time Spent With Patient Time: Total time spent is greater than 50% in coordination of care (as documented) at patient's floor/unit and/or counseling patient: Total time spent with greater than 50% in coordination of care (as documented) at patient's floor/unit and/or counseling patient:: 35 - 50 minutes QUALITY VTE Deep Vein Thrombosis/Pulmonary Embolism Present on Admission: No
[2022-04-27] MEDS: ESCITALOPRAM 10 MG TABLET PO SCH (10:20)
[2022-04-27] MEDS: NEUTRA PHOS 1 PACKET PO SCH ×2 (10:21→21:44)
[2022-04-27] MEDS: HYDROcodone/APAP 5/325MG TABLET PO PRN ×2 (10:21→19:14)
[2022-04-27] MEDS: FENOFIBRATE 43 MG CAPSULE PO SCH (10:21)
[2022-04-27] MEDS: LOSARTAN 50 MG TABLET PO SCH (10:21)
[2022-04-27] MEDS: amLODIPine 10 MG TABLET PO SCH (10:32)
[2022-04-27] MEDS: ENOXAPARIN 40 MG/0.4 ML SYRINGE SQ SCH (10:32)
[2022-04-27] MEDS: CLOPIDOGREL 75 MG TABLET PO SCH (10:32)
[2022-04-27] MEDS: DOCUSATE SODIUM 100 MG CAPSULE PO SCH ×2 (10:32→20:37)
--- NOTE | 2022-04-27 11:10 | Discharge Summary ---
Discharge Provider Provider IMPORTANT FOLLOW-UP INFORMATION FOR PCP: Patient information: Note initiated : 04/27/22 at 11:08 am Service Date, if different from initiated Date: [] Patient: Loni Dasilva a 71 y/o F admitted on 04/25/22 for shortness of breath, hypoxia. Chief Complaint: [] Date of admission: 04/25/22 11:00 Discharge date: 04/29/22 Primary care physician: Armando Odonnell DO Consults: 04/25/22 Consult to Physician [CONS] Stat Comment: Consulting Provider: Abraham Frazier Reason For Exam: Physician to Consult COURSE Hospital Course Hospital course: Interval history: History of present illness: Ms. Dasilva is a 71 year old F Presents to the ED with increasing weakness and shortness of breath. He was noted to be hypoxic and so her hydroelectric production technician brought her in. Is like she was 75% on room air. They have been trying to get home oxygen but have been unable to get appointment with the primary care doctor between hospital admissions. Her son provides most of the history says she has been declining significantly since she had COVID last fall. She is lost 45 pounds since then. Decreased appetite. She has a weak cough. She also reports increased cough with eating and drinking. She does see a speech therapist. She was in the ED about 6 days ago and given prednisone short course. Chest x-ray in the ED showed mild right lower lobe infiltrate. Labs show hypokalemia. Rapid flu and COVID in the ED negative. Since her hospitalization last fall for COVID-pneumonia requiring ICU level care. He also has been admitted this last January for aspiration pneumonia and failure to thrive and electrolyte imbalance. 4 day admission. 04/26 Patient extremely weak and seems to take effort to verbalize. Patient has headache some cough and shortness of breath. No overnight events. She was seen by speech therapist who recommended some supplemental nutrition at this time and Dobbhoff was placed but patient pulled it out and then was willing to have it placed back in. Sounds like home health was considering recommendation for hospice. Will need to have a care conference. 04/27 Patient still very weak. Complains of back pain. We will try to adjust her in bed. Phosphorus low and will replete, Possible early stage of refeeding syndrome. 04/28 Concern last night that she may reflux some of the tube feeding causing a mild respiratory distress. Patient's body position was changed and her tube feeds were held for several hours with a gradual titration start. Caregiver at bedside, states she moved a little bit more with physical therapy in bed today. Evaluate for home oxygen prior to d/c. Patient does not want to go home on tube feedings. After multiple discussions patient has decided home with hospice would be best and in line with her wishes. 04/29 No changes overnight. Patient home with [facility] hospice today. Patient high risk for readmission given age and significant comorbidities and significant decline since COVID last fall. f/u with hospice A: *PNA, suspected aspiration PNA: -suspected aspiration yesterday evening with TF's, pt repositioned in bed *Oropharyngeal Dysphagia: diet per ST, will start TF's for now given poor oral intake and appetite/weight loss/muscle wasting. *Acute hypoxic on likely chronic respiratory failure: 2/2 above and underlying COPD *COPD(sanchez lobar): -Family has been trying to get outpatient home oxygen set up. *Volume depletion: *FTT/severe protein calorie malnutrition: Muscle and subcutaneous fat loss/diminished functional status -progressive decline since COVID-pneumonia last fall *Electrolyte d/o (Hypokalemia,hypophos): improved *possible early mild refeeding syndrome *h/o CVA's: on plavix/asa per Ho for intracerebral stenosis *h/o CAD w/stent: follows with Dr. Villasenor -on asa/plavix/fenofibrate *CKD II: improved with IVF *HTN: on ARB *Goals of care: home with palliative care Discharge diagnosis: Likely aspiration pneumonia dysphagia acute hypoxic respite failure Secondary discharge diagnosis: Likely chronic respiratory failure COPD volume depletion failure to thrive protein calorie malnutrition electrolyte disorder history of stroke CAD chronic anemia hypertension Time Spent with Patient Time attestation: Total time spent providing and/or coordinating discharge services: Time spent: Greater than 30 minutes EXAM Constitutional Vitals: Temp Pulse Resp BP Pulse Ox 98.0 F 82 16 138/72 97 04/27/22 03:05 04/27/22 07:00 04/27/22 08:00 04/27/22 07:00 04/27/22 07:00 Discharge Data Data Completed and Pending Labs on day of discharge: Labs from last 24 hours 04/27/22 04/27/22 09:01 05:42 Sodium 143 Potassium Pending 3.5 Chloride 100 Carbon Dioxide 39 H Anion Gap 4.0 L BUN 9 Creatinine 0.2 L GFR Calculation 130 Glucose 120 H Uric Acid 2.3 L Calcium 9.7 Phosphorus Pending 1.7 L Magnesium 1.8 Total Bilirubin 0.2 Direct Bilirubin < 0.2 GGT 6 AST 17 ALT 12 Alkaline Phosphatase 46 Lactate Dehydrogenase 183 Total Protein 5.2 L Albumin 3.4 Globulin 1.8 L Albumin/Globulin Ratio 1.9 Triglycerides 95 Preliminary micro results at discharge 04/25/22 08:50 Blood Culture - Preliminary Blood 04/25/22 08:45 Blood Culture - Preliminary Blood Discharge Plan Patient/Caregiver Discharge Instructions Activity: increase activity as tolerated Diet: Dysphagia Level 5 Minced & Moist Foods Instructions: Using Oxygen at Home (DC), Nasogastric Tube (DC) Activity Restrictions/Additional Instructions: Follow-up with hospice. Home Oxygen. Prescriptions: New cefpodoxime 200 mg tablet 200 mg PO BID Qty: 4 0RF Rx Instructions: must administer with a meal/food morphine 20 mg/5 mL (4 mg/mL) solution 10 mg PO Q1-2HP PRN (Reason: pain) Qty: 100 0RF hyoscyamine sulfate [Levsin/SL] 0.125 mg tablet, sublingual 0.125 mg sublingual QID PRN (Reason: terminal secretions) Qty: 20 0RF ondansetron 4 mg tablet,disintegrating 4 mg translingual Q6H PRN (Reason: nausea and vomiting) Qty: 30 0RF lorazepam 2 mg/mL concentrate 1 mg sublingual QID PRN (Reason: anxiety) Qty: 30 0RF Continued evening primrose oil 500 mg capsule 1,000 mg PO QHS Rx Instructions: give with meal/snack aspirin 81 mg tablet,delayed release (DR/EC) 81 mg PO QHS metoclopramide HCl 5 mg tablet 5 mg PO QAC Qty: 30 4RF Rx Instructions: administer 30 minutes before meals losartan 50 mg tablet 50 mg PO QDAY Qty: 100 1RF Label Comments: pt takes at HS Depo-Estradiol 5 mg/mL oil 5 mg IM Q4W Qty: 5 3RF mirtazapine 7.5 mg tablet 7.5 mg PO QDAY Qty: 30 2RF escitalopram oxalate 10 mg tablet 10 mg PO QDAY Qty: 90 1RF fenofibrate 54 mg tablet 54 mg PO QDAY Qty: 90 1RF Label Comments: pt takes at HS clopidogrel [Plavix] 75 mg tablet 75 mg PO QDAY Qty: 90 1RF Label Comments: pt takes at HS amlodipine 10 mg tablet 10 mg PO QDAY Qty: 90 1RF albuterol sulfate 2.5 mg /3 mL (0.083 %) solution for nebulization 2.5 mg inhalation QID PRN (Reason: shortness of breath or wheezing) Qty: 180 0RF fluticasone propionate [Flonase Allergy Relief] 50 mcg/actuation spray,suspension 1 spray INTRANASAL QDAY Qty: 15.8 0RF Label Comments: pt takes at HS Rx Instructions: administer into each nostril vitamin E (dl, acetate) 1,000 unit capsule 1,000 unit PO QHS multivitamin tablet 1 tab PO QHS cholecalciferol (vitamin D3) 50 mcg (2,000 unit) capsule 50 mcg PO QDAY Qty: 90 3RF Label Comments: pt takes at night mecobalamin (vitamin B12) 1,000 mcg tablet,chewable 1,000 mcg PO QDAY Qty: 90 3RF magnesium 250 mg tablet 500 mg PO QHS Fish Oil 900-1,400 mg capsule,delayed release(DR/EC) 1 cap PO BID (DME) nebulizer and compressor Device See Rx Instructions .Route Qty: 1 0RF Rx Instructions: As directed calcium carbonate-vitamin D2 600 mg calcium- 200 unit Tablet 1 tab PO QDAY Zyrtec 10 mg Capsule 10 mg PO QDAY coQ10 (ubiquinol) 100 mg Capsule 100 mg PO DAILY benzonatate 100 mg capsule 100 mg PO TID PRN (Reason: cough) Qty: 20 0RF Discontinued prednisone 50 mg tablet 50 mg PO QDAY Qty: 5 0RF Other Ambulatory Orders: Tube Feeding Instructions (Routine) Location: None Selected Ordered By: Abraham Frazier Home Oxygen Order (Routine) Location: None Selected Ordered By: Abraham Frazier Follow Up Plan Patient Disposition: Home Health Service Prognosis: Serious Overall status at discharge: patient is progressing back to baseline Discharge Orders: Discharge Order (Routine); Ordered 04/29/22 Ordered By: Abraham Frazier QUALITY VTE Deep Vein Thrombosis/Pulmonary Embolism Present on Admission: No
[2022-04-27] MEDS ORDERED: BENZOCAINE 1 SPRAY BOTTLE TOPICAL PRN ×2 (12:23→15:45)
[2022-04-27] MEDS: cefTRIAXone 2 GM in DEXTROSE 5% IN WATER 50 ML IV SCH (12:32)
[2022-04-27] MEDS: AZITHROMYCIN 500 MG in DEXTROSE 5% IN WATER 250 ML IV SCH (13:02)
[2022-04-27 16:03] LABS: Phosphorous 2.9 mg/dL (2.5-4.5)
[2022-04-27] MEDS ORDERED: LEVALBUTEROL 0.63 MG/3 ML AMPUL.NEB NEB PRN (17:53)
--- NOTE | 2022-04-27 18:44 | XRay Report ---
INDICATION: Dyspnea TECHNIQUE: AP portable upright chest x-ray COMPARISON: Previous chest x-ray dated 04/25/2022. Previous chest CT scan dated 04/25/2022 FINDINGS: Interval placement of an esophagogastric tube. Tube tip is in the stomach. Sidehole of the catheter is below the gastroesophageal junction. There is pulmonary parenchymal density at both lung bases consistent with volume loss or pneumonia. These findings are worse than on 04/25/2022. Mid and upper lungs are negative. No evidence for congestive heart failure IMPRESSION: 1. Esophagogastric tube in the stomach 2. Bilateral lower lobe parenchymal density consistent with pneumonia and/or volume loss Interpreted and Authenticated by: Armando Mcintyre 04/27/22
[2022-04-27] MEDS: MIRTAZAPINE 15 MG TABLET PO SCH (21:56)
[2022-04-28] MEDS: HYDROcodone/APAP 5/325MG TABLET PO PRN ×2 (01:42→23:54)
[2022-04-28] MEDS: IPRATROPIUM 2.5 ML AMPUL.NEB NEB SCH ×4 (02:28→15:29)
[2022-04-28 06:32] LABS: Basophils # (Auto) 0.02 K/mcL (0.00-0.30); Basophils % (Auto) 0.3 % (0.0-2.0); Eosinophils # (Auto) 0.02 K/mcL (0.00-0.70); Eosinophils % (Auto) 0.3 % (0.0-7.0); Hemoglobin 13.4 g/dL (11.2-15.7); Lymphocytes # (Auto) 0.95 K/mcL (1.50-4.80); Lymphocytes % (Auto) 12.8 % (15.5-49.0); Mean Cell Volume 97.5 fL (80.0-100.0); Mean Corpuscular HGB Conc 31.2 g/dL (31.0-36.0); Mean Platelet Volume 11.3 fL (7.4-10.4); Monocytes # (Auto) 0.65 K/mcL (0.10-0.90); Monocytes % (Auto) 8.8 % (1.0-12.0); Neutrophils % (Auto) 76.9 % (38.0-78.0); Platelet Count 204 K/mcL (140-440); RBC 4.41 M/mcL (3.59-5.38); Red Cell Distribution Width 12.6 % (11.5-14.5); WBC 7.4 K/mcL (4.5-11.0)
[2022-04-28] MEDS: 0.9 % SODIUM CHLORIDE 10 ML SYRINGE IV SCH ×3 (06:48→23:55)
[2022-04-28] MEDS: METOCLOPRAMIDE 10 MG TABLET PO SCH ×3 (07:12→17:03)
[2022-04-28 07:28] LABS: ALT/SGPT 13 U/L (<40); AST/SGOT 18 U/L (<32); Albumin 3.4 gm/dL (3.2-5.2); Albumin/Globulin Ratio 2.1 (1.0-2.3); Alkaline Phosphatase 54 U/L (39-117); Bilirubin,Direct < 0.2 mg/dL (0-0.3); Bilirubin,Total 0.2 mg/dL (0.1-1.0); Blood Urea Nitrogen 13 mg/dL (8-23); Calcium 9.9 mg/dL (8.6-10.4); Carbon Dioxide 43 mmol/L (22-30); Chloride 96 mmol/L (96-108); Globulin 1.6 gm/dL (2.2-3.7); Glomerular Filtration Rate 114; Glucose 140 mg/dL (70-105); Lactate Dehydrogenase 165 U/L (135-225); Phosphorous 2.9 mg/dL (2.5-4.5); Triglycerides 83 mg/dL (<150); Uric Acid 1.7 mg/dL (2.5-8.0)
--- NOTE | 2022-04-28 08:20 | Internal Med Progress Note ---
SUBJECTIVE Subjective Patient information: Note initiated : 04/28/22 at 8:15 am Service Date, if different from initiated Date: [] Patient: Loni Dasilva a 71 y/o F admitted on 04/25/22 for shortness of breath, hypoxia. Chief Complaint: [] Interval history: History of present illness: Ms. Dasilva is a 71 year old F Presents to the ED with increasing weakness and shortness of breath. He was noted to be hypoxic and so her refinery operator light ends recovery brought her in. Is like she was 75% on room air. They have been trying to get home oxygen but have been unable to get appointment with the primary care doctor between hospital admissions. Her son provides most of the history says she has been declining significantly since she had COVID last fall. She is lost 45 pounds since then. Decreased appetite. She has a weak cough. She also reports increased cough with eating and drinking. She does see a speech therapist. She was in the ED about 6 days ago and given prednisone short course. Chest x-ray in the ED showed mild right lower lobe infiltrate. Labs show hypokalemia. Rapid flu and COVID in the ED negative. Since her hospitalization last fall for COVID-pneumonia requiring ICU level care. He also has been admitted this last January for aspiration pneumonia and failure to thrive and electrolyte imbalance. 4 day admission. 7 Patient extremely weak and seems to take effort to verbalize. Patient has headache some cough and shortness of breath. No overnight events. She was seen by speech therapist who recommended some supplemental nutrition at this time and Dobbhoff was placed but patient pulled it out and then was willing to have it placed back in. Sounds like home [facility] was considering recommendation for hospice. Will need to have a care conference. 7 Patient still very weak. Complains of back pain. We will try to adjust her in bed. Phosphorus low and will replete, Possible early stage of refeeding syndrome. 7 Concern last night that she may reflux some of the tube feeding causing a mild respiratory distress. Patient's body position was changed and her tube feeds were held for several hours with a gradual titration start. Caregiver at bedside, states she moved a little bit more with physical therapy in bed today. Evaluate for home oxygen prior to d/c. Review of Systems: denies fever/chills/nausea/vomiting/chest or abdominal pain/diarrhea. Otherwise see above. Constitutional Vitals: Vital Signs Temp Pulse Resp BP Pulse Ox O2 Del Method O2 Flow Rate 97.2 F 95 H 18 138/75 95 2 04/28/22 06:58 04/28/22 06:58 04/28/22 06:58 04/28/22 06:58 04/28/22 06:58 04/28/22 06:58 04/28/22 06:58 Period Temp Pulse Resp BP Sys/Wright Pulse Ox O2 Del Method O2 Flow Rate Last 24 Hr 97.2 F-98.9 F 83-105 10-20 130-147/57-75 83-95 Nasal Cannula- Room Air 2-5 Intake and Output 04/27/22 04/28/22 04/28/22 21:59 05:59 13:59 Intake Total 1392 573 Output Total 450 1 1 Balance 942 572 -1 Weight 39.916 kg Intake & Output: Intake & Output 04/27/22 04/28/22 04/28/22 21:59 05:59 13:59 Intake Total 1392 573 Output Total 450 1 1 Balance 942 572 -1 Weight 39.916 kg Intake: IV 250 Zithromax 500 mg In Dextrose 5% 250 in Water 250 ml @ 250 mls/hr IV Q24H [facility] Rx#:[id number] Oral 0 Tube Feeding 932 163 GI Tube Flush 200 150 NG Tube Flush 10 260 Right Nare 10 260 Output: Gastric Drainage 0 0 Right Nare 0 0 Void Amount 450 # of times incontinent of urine 1 1 Other: Meal Nourishment/Supplement Feeding Ability Total Assistance Urine Appearance Clear Urine Color Light [place] Urine Odor Normal # Voids 1 # Bowel Movements 0 # of times incontinent of 0 Bowels Exam: General: Awake, No acute Distress, frail/cachectic, extremely weak Eyes/N/T: EOMI, Head/Neck: neck supple, CV: RRR, No murmurs, Pulm: diminished BS b/l, no wheezing Abd: soft, nontender, +BS x4 Ext: no clubbing/cyanosis/edema Neuro: Alert, no focal deficits, moves all extremities, Skin: warm/dry OBJ DATA Labs CBC & Chem 7: 04/28/22 05:35 04/28/22 05:35 Labs: Abnormal Lab Results 04/28/22 04/28/22 04/27/22 05:35 05:35 05:42 Hct MPV 11.3 H Immature Gran % (Auto) 0.9 H Neut % (Auto) Lymph % (Auto) 12.8 L Lymph # (Auto) 0.95 L [place] # (Auto) Seg Neutrophils % Lymphocytes % Immature Gran # 0.07 H Absolute Neutrophils Potassium Chloride Carbon Dioxide 43 H* 39 H Anion Gap 3.0 L 4.0 L Creatinine 0.3 L 0.2 L Glucose 140 H 120 H Uric Acid 1.7 L 2.3 L Calcium Phosphorus 1.7 L Total Protein 5.0 L 5.2 L Globulin 1.6 L 1.8 L Procalcitonin Urine Appearance Urine Protein Urine Ketones Urine Urobilinogen Ur Squamous Epith Cells Amorphous Crystals Hyaline Casts Urine Mucus 04/26/22 04/26/22 04/25/22 05:33 05:33 08:48 Hct MPV 11.1 H Immature Gran % (Auto) Neut % (Auto) 79.9 H Lymph % (Auto) 9.5 L Lymph # (Auto) 1.04 L [place] # (Auto) 1.09 H Seg Neutrophils % Lymphocytes % Immature Gran # Absolute Neutrophils 8.80 H Potassium 2.7 L* Chloride Carbon Dioxide 35 H Anion Gap 4.0 L Creatinine 0.3 L Glucose Uric Acid Calcium Phosphorus 2.2 L Total Protein 5.3 L Globulin 1.6 L Procalcitonin Urine Appearance Hazy A Urine Protein 30 A Urine Ketones 5 A Urine Urobilinogen 2.0 A Ur Squamous Epith Cells 11 H Amorphous Crystals Few A Hyaline Casts 4 H Urine Mucus Mod A 04/25/22 04/25/22 04/25/22 08:05 08:05 08:05 Hct 48.5 H MPV 11.2 H Immature Gran % (Auto) Neut % (Auto) Lymph % (Auto) Lymph # (Auto) [place] # (Auto) Seg Neutrophils % 82 H Lymphocytes % 11 L Immature Gran # Absolute Neutrophils Potassium Chloride 94 L Carbon Dioxide Anion Gap Creatinine Glucose 120 H Uric Acid Calcium 10.8 H Phosphorus Total Protein Globulin Procalcitonin 0.11 H Urine Appearance Urine Protein Urine Ketones Urine Urobilinogen Ur Squamous Epith Cells Amorphous Crystals Hyaline Casts Urine Mucus Meds: Medications Acetaminophen (Acetaminophen 325 Mg Tablet) 650 mg PO Q6HP PRN; Protocol PRN Reason: Per Pain Protocol/Fever > 101 Last Admin: 04/25/22 12:43 Dose: 650 mg Hydrocodone Bitart/Acetaminophen (Hydrocodone/Apap 5/325mg Tablet) 1 tab PO Q4- 6HP PRN; Protocol PRN Reason: Per Pain Protocol Last Admin: 04/28/22 01:42 Dose: 1 tab Amlodipine Besylate (Amlodipine 10 Mg Tablet) 10 mg PO QDAY [facility] Last Admin: 04/27/22 10:32 Dose: 10 mg Benzocaine (Benzocaine 1 Hollis Bottle) 1 spray TOPICAL Q4HP PRN PRN Reason: Sore Throat Last Admin: 04/27/22 17:07 Dose: 1 spray Benzonatate (Benzonatate 100 Mg Capsule) 100 mg PO TIDP PRN PRN Reason: cough Clopidogrel Bisulfate (Clopidogrel 75 Mg Tablet) 75 mg PO QDAY [facility] Last Admin: 04/27/22 10:32 Dose: 75 mg Docusate Sodium (Docusate Sodium 100 Mg Capsule) 100 mg PO BID [facility] Last Admin: 04/27/22 20:37 Dose: Not Given Enoxaparin Sodium (Enoxaparin 40 Mg/0.4 Ml Syringe) 40 mg SQ DAILY [facility] Last Admin: 04/27/22 10:32 Dose: 40 mg Escitalopram Oxalate (Escitalopram 10 Mg Tablet) 10 mg PO QDAY [facility] Last Admin: 04/27/22 10:20 Dose: 10 mg Fenofibrate (Fenofibrate 43 Mg Capsule) 43 mg PO DAILY [facility] Last Admin: 04/27/22 10:21 Dose: 43 mg Potassium Chloride 40 meq/ (Dextrose) 520 mls @ 130 mls/hr IV UD PRN PRN Reason: Potassium < 3 Last Infusion: 04/26/22 14:34 Dose: Infused Magnesium Sulfate (Magnesium Sulfate) 2 gm in 50 mls @ 50 mls/hr IV UD PRN PRN Reason: Magnesium </= 1.6 Ceftriaxone Sodium 2 gm/ (Dextrose) 50 mls @ 100 mls/hr IV Q24H [facility]; Protocol Last Infusion: 04/27/22 13:05 Dose: Infused Ipratropium [place] (Ipratropium 2.5 Ml Ampul.Neb) 2.5 ml NEB Q4HRT [facility] Last Admin: 04/28/22 06:53 Dose: 2.5 ml Labetalol HCl (Labetalol 5 Mg/Ml Ml) 0 mg IV Q2HP PRN PRN Reason: Hypertension Levalbuterol HCl (Levalbuterol 0.63 Mg/3 Ml Ampul.Neb) 0.63 mg NEB Q4HP PRN PRN Reason: Shortness Of Breath Last Admin: 04/28/22 06:53 Dose: 0.63 mg Losartan Potassium (Losartan 50 Mg Tablet) 50 mg PO QDAY [facility] Last Admin: 04/27/22 10:21 Dose: 50 mg Metoclopramide HCl (Metoclopramide 10 Mg Tablet) 5 mg PO AC [facility] Last Admin: 04/28/22 07:12 Dose: 5 mg Mirtazapine (Mirtazapine 15 Mg Tablet) 7.5 mg PO HS [facility] Last Admin: 04/27/22 21:56 Dose: Not Given Ondansetron HCl (Ondansetron 4 Mg/2 Ml Vial) 4 mg IV Q4HP PRN PRN Reason: Nausea And Vomiting Polyethylene Glycol (Polyethylene Glycol 3350 17 Gm Packet) 17 gm PO DAILYP PRN PRN Reason: Constipation Potassium Chloride (Potassium Chloride 20 Meq Tablet) 40 meq PO UD PRN PRN Reason: Potssium is 3-3.5 Last Admin: 04/25/22 22:41 Dose: 40 meq Potassium Chloride (Potassium Chloride 20 Meq Tablet) 40 meq PO UD PRN PRN Reason: Potassium < 3 Last Admin: 04/26/22 08:36 Dose: 40 meq Senna (Sennosides 1 Tablet) 2 tab PO DAILYP PRN PRN Reason: Constipation Sodium Chloride (0.9 % Sodium Chloride 10 Ml Syringe) 10 ml IV Q8 [facility] Last Admin: 04/28/22 06:48 Dose: 10 ml A/P Narrative A/P Narrative: A: *PNA, suspected aspiration PNA: -suspected aspiration yesterday evening with TF's, pt repositioned in bed *Oropharyngeal Dysphagia: diet per ST, will start TF's for now given poor oral intake and appetite/weight loss/muscle wasting. *Acute hypoxic on likely chronic respiratory failure: 2/2 above and underlying COPD -on 2L *COPD(s[place] lobar): -Family has been trying to get outpatient home oxygen set up. *Volume depletion: *FTT/severe protein calorie malnutrition: Muscle and subcutaneous fat loss/diminished functional status -progressive decline since COVID-pneumonia last fall *Electrolyte d/o (Hypokalemia,hypophos): improved *possible early mild refeeding syndrome *h/o CVA's: on plavix/asa per [facility] for intracerebral stenosis *h/o CAD w/stent: follows with Dr. Villasenor -on asa/plavix/fenofibrate *CKD II: improved with IVF *HTN: on ARB *Goals of care: holding off on hospice at this time, pt to likely f/u outpt at some point P: -monitor for refeeding syndrome -replace phos prn -Rocephin/azithromycin -O2 supp, wean as able, will need home O2 -IS/Acapella -diet per ST, TF's in place for now -Monitor and replace electrolytes -Dietary consult -Continue home asa/plavix, norvasc/ARB -PT/OT -CM for placement -ppx: lovenox DNR Time Spent With Patient Time: Total time spent is greater than 50% in coordination of care (as documented) at patient's floor/unit and/or counseling patient: Total time spent with greater than 50% in coordination of care (as documented) at patient's floor/unit and/or counseling patient:: 25 - 35 minutes QUALITY VTE Deep Vein Thrombosis/Pulmonary Embolism Present on Admission: No
[2022-04-28] MEDS ORDERED: acetaZOLAMIDE SOD 500 MG VIAL IV SCH (08:30)
[2022-04-28] MEDS: FENOFIBRATE 43 MG CAPSULE PO SCH (09:00)
[2022-04-28] MEDS: ENOXAPARIN 40 MG/0.4 ML SYRINGE SQ SCH (09:01)
[2022-04-28] MEDS: ESCITALOPRAM 10 MG TABLET PO SCH (09:01)
[2022-04-28] MEDS: CLOPIDOGREL 75 MG TABLET PO SCH (09:01)
[2022-04-28] MEDS: LOSARTAN 50 MG TABLET PO SCH (09:03)
[2022-04-28] MEDS: amLODIPine 10 MG TABLET PO SCH (09:03)
[2022-04-28] MEDS: DOCUSATE SODIUM 100 MG CAPSULE PO SCH ×2 (09:03→23:29)
[2022-04-28] MEDS: ACETAMINOPHEN 325 MG TABLET PO PRN (11:43)
[2022-04-28] MEDS: cefTRIAXone 2 GM in DEXTROSE 5% IN WATER 50 ML IV SCH (13:00)
[2022-04-28] MEDS ORDERED: IPRATROPIUM 2.5 ML AMPUL.NEB NEB PRN (16:15)
[2022-04-28] MEDS ORDERED: hydrOXYzine 25 MG TABLET PO PRN (19:12)
[2022-04-28] MEDS: LORazepam 2 MG/ML VIAL IV PRN (19:31)
[2022-04-28] MEDS: MIRTAZAPINE 15 MG TABLET PO SCH (23:53)
[2022-04-29] MEDS: 0.9 % SODIUM CHLORIDE 10 ML SYRINGE IV SCH (04:20)
[2022-04-29] MEDS: METOCLOPRAMIDE 10 MG TABLET PO SCH ×2 (07:19→11:35)
[2022-04-29 08:52] LABS: ALT/SGPT 13 U/L (<40); AST/SGOT 26 U/L (<32); Albumin 3.3 gm/dL (3.2-5.2); Albumin/Globulin Ratio 1.4 (1.0-2.3); Alkaline Phosphatase 55 U/L (39-117); Bilirubin,Direct < 0.2 mg/dL (0-0.3); Bilirubin,Total 0.3 mg/dL (0.1-1.0); Blood Urea Nitrogen 13 mg/dL (8-23); Calcium 10.5 mg/dL (8.6-10.4); Carbon Dioxide 36 mmol/L (22-30); Chloride 99 mmol/L (96-108); Globulin 2.3 gm/dL (2.2-3.7); Glomerular Filtration Rate 103; Glucose 111 mg/dL (70-105); Lactate Dehydrogenase 229 U/L (135-225); Phosphorous 2.6 mg/dL (2.5-4.5); Triglycerides 91 mg/dL (<150); Uric Acid 2.5 mg/dL (2.5-8.0)
[2022-04-29] MEDS: ENOXAPARIN 40 MG/0.4 ML SYRINGE SQ SCH (09:09)
[2022-04-29] MEDS: FENOFIBRATE 43 MG CAPSULE PO SCH (09:11)
[2022-04-29] MEDS: DOCUSATE SODIUM 100 MG CAPSULE PO SCH (09:11)
[2022-04-29] MEDS: CLOPIDOGREL 75 MG TABLET PO SCH (09:12)
[2022-04-29] MEDS: amLODIPine 10 MG TABLET PO SCH (09:12)
[2022-04-29] MEDS: ESCITALOPRAM 10 MG TABLET PO SCH (09:12)
[2022-04-29] MEDS: LOSARTAN 50 MG TABLET PO SCH (09:12)
[2022-04-29] MEDS: LORazepam 2 MG/ML VIAL IV PRN (11:34)
[2022-04-29] MEDS: cefTRIAXone 2 GM in DEXTROSE 5% IN WATER 50 ML IV SCH (12:32)
== END 2022-04-29 13:40 | disposition home health service (06) | DRG 177 ==
LOC: ED 07:21 → MEDSUR 11:00
PROVIDERS: ADMIT Internal Medicine; ATTEND Internal Medicine